=== PATIENT | female | born 1945 | race Caucasian/White ===

== ENCOUNTER → 2021-08-25 09:01 | Outpatient (BNVA) | payer OTHER, SELFPAY | PROVIDERS: PCP Internal Medicine; Visit Provider Nurse Practitioner Family ==

== ENCOUNTER → 2021-11-24 08:52 | Outpatient (BNVA) | payer OTHER, SELFPAY | PROVIDERS: PCP Internal Medicine; Visit Provider Nurse Practitioner Family | DX: G20 Parkinson's disease (principal) ==

== ENCOUNTER → 2022-09-14 10:44 | Outpatient (BNVA) | payer OTHER, SELFPAY | PROVIDERS: Visit Provider Nurse Practitioner Family | DX: Z13.89 Encounter for screening for other disorder (principal) ==

== ENCOUNTER → 2022-12-20 11:18 | Outpatient (BNVA) | payer OTHER, SELFPAY | PROVIDERS: Visit Provider Nurse Practitioner Family ==

== ENCOUNTER 2023-04-10 11:21 | Outpatient (AMB) | payer OTHER, SELFPAY ==
--- NOTE | 2023-04-10 11:22 | A.OFFVIS_ITS ---
Intake Vital Signs 04/10/23 11:23 Height 5 ft Weight 147 lb 4 oz BMI 28.8 BP 110/62 Blood Pressure Location Rt brachial Position Sitting Pulse 82 Pulse Source Pulse Oximeter Pulse Oximetry (%) 95 Oxygen Delivery Method Room Air Intake Visit Reasons: 3m follow up Parkinson-Confirmed Intake Note: Patient presents for 3 month follow up. Patient states I fall a lot I loose my balance. Allergies Sulfa (Sulfonamide Antibiotics) Allergy (Mild, Verified 04/10/23 11:34) Swelling Medication List - Last Reconciled 04/10/23 by JOVANNA Camacho alendronate 70 mg PO QWEEK calcium citrate 200 mg PO DAILY carbidopa-levodopa 25-100 mg 1.5 tabs PO QID 30 days cholecalciferol (vitamin D3) 10 mcg PO DAILY diclofenac sodium 1% 2 grams topical QID gabapentin 100 mg PO TID 30 days pramipexole 0.5 mg orally QID; 30 days rasagiline 1 mg PO DAILY HPI HPI Comments History of Present Illness Details 77-yr-old female presents for f/u visit, accompanied by her friend. Pt reports she has had increased falls- was having a fall every 2 weeks (has had about 4-5 recent falls). She states that the falls occur d/t her upper body/torso just leans forward but her feet do not move and she just falls forward. She has increased her CD-LD 25-100mg form 1.5 tabs qid to 2 tabs qid- but did not find this helpful. She is using her walker, which helps some. She last did PT in the spring. She notes that after she started falling, she has developed RLE swelling, tenderness to touch, redness, warmth- had RLE XR through PCP- states was normal. Pt's current PD medication regimen:? Carbidopa-levodopa 2 tabs qid.? Pramipexole 0.5 mg 1 q.i.d.? Rasagiline 1 mg daily. ADL's:? Slow. Has help for showers. Swallowing: Feels like solid foods become stuck, and needs to take more bites and fluids before goes done. Does not actually cough. Does not recall if this changed following her thyroid surgery. Drooling:? Mild not bothersome. Orthostatic lightheadedness:? Denies issues. Constipation:? Denies constipation. Stiffness:? No Tremor:?Tremor is stable Falls:? As above Hallucinations:? None, but feel like someone is walking by. Memory:? Stable.? Sleep:? If more anxious has more difficulty sleeping. [facility] Medical History Bilateral cataracts HTN (hypertension) Low back pain potentially associated with radiculopathy Osteoarthritis Rib fracture Urinary incontinence Vitamin D deficiency Surgical History H/O shoulder surgery Social History Alcohol intake: never Patient Tobacco Use Status: Never used Tobacco Review of Systems Const All systems reviewed & are unremarkable except as noted in HPI and below Physical Exam Vital Signs: Last Vital Signs Pulse 82 04/10/23 11:23 BP 110/62 04/10/23 11:23 Pulse Ox 95 04/10/23 11:23 Oxygen Delivery Method Room Air 04/10/23 11:23 BMI result Body Mass Index 28.8 Const General: cooperative and no acute distress Resp Effort & Inspection: normal respiratory effort and able to speak in complete sentences Cardio Peripheral pulses: dorsalis pedis present on the right Skin Other: left anterior knee abrasion Neuro Other: Expression: Mild decreased expression and blink Voice: ? Soft voice Tremor:? Mild LLE tremor Dyskinesia: Mild LLE dyskineisa- alternates w/ tremor Tone:? Right upper extremity rigidity FFM:? Mild bradykinesia Foot taps:? Mild bradykinesia Gait:? Stands slowly, slight stoop, no arm swing, short steps with low floor clearance. Psych: Pleasant affect. Cranial nerves: Yes CN's II-XII intact bilaterally General: patient oriented x3 Cognition (Neuro): normal cognition Motor exam (neuro): 5/5 motor strength present throughout Extrem Right lower extremity: edema Details: non-pitting and lower leg Details: erythema Location: of the mid lower leg, tenderness (mid anterior brian) and warmth (mild) Location: of the mid lower leg Assessment & Plan Assessment & Plan (1) Parkinson's disease: Code(s): G20 - Parkinson's disease (2) Pain of right lower extremity: Code(s): M79.604 - Pain in right leg (3) Right leg swelling: Code(s): M79.89 - Other specified soft tissue disorders (4) Falls: Code(s): W19.XXXA - Unspecified fall, initial encounter (5) Gait difficulty: Code(s): R26.9 - Unspecified abnormalities of gait and mobility (6) Dysphagia: Code(s): R13.10 - Dysphagia, unspecified Plan For RLE swelling, pain, mild redness, mild warmth: Check d-dimer, CBC, CMP today- lab slip given Check RLE venous US. ? Continue carbidopa levodopa to 2 tabs QID- in hopes this helps gait. Continue pramipexole 0.5 mg from 1 tab t.i.d. to 1 tab QID. Continue rasagiline 1 mg q.d. Use walker ta all times. Will refer pt for home PT and DESIGN CENTER CONSULTANT as pt is homebound and requires walker and 1 assist to levae home safely. PT for home safety, gait, posture, strength, endurance eval & tx DESIGN CENTER CONSULTANT for swallow, safe swallwo strategy eval & tx ? F/u in 4 months or sooner prn Orders: Orders US venous duplex LE RT Today M79.604 - Pain in right leg, M79.89 - Other specified soft tissue disorders D Dimer High Sensitivity Today M79.604 - Pain in right leg, M79.89 - Other specified soft tissue disorders Complete Blood Count Auto Diff Today M79.604 - Pain in right leg, M79.89 - Other specified soft tissue disorders Comprehensive Met. Panel Today M79.604 - Pain in right leg, M79.89 - Other specified soft tissue disorders [facility]errals [facility] Referral G20 - Parkinson's disease, R13.10 - Dysphagia, unspecified, R26.9 - Unspecified abnormalities of gait and mobility, W19.XXXA - Unspecified fall, initial encounter Medications: Changed From rasagiline 1 mg PO DAILY To rasagiline 1 mg PO DAILY 30 tabs 6RF 30 days From carbidopa-levodopa 25-100 mg 1.5 tabs PO QID 30 days 180 tabs 6RF To carbidopa-levodopa 25-100 mg 2 tabs PO QID 240 tabs 6RF 30 days Refilled pramipexole 0.5 mg orally QID; 30 tabs 6RF 30 days Coding Level of Care Code Est Pt Level 4 (76482) Diagnoses Parkinson's disease G20 Pain of right lower extremity M79.604 Right leg swelling M79.89 Falls W19.XXXA Gait difficulty R26.9 Dysphagia R13.10
[2023-04-10 11:23] VITALS: BP 110/62; PULSE 82; O2SAT 95; BMI 28.8
== END 2023-04-10 12:21 | disposition home or self-care (01) ==
PROVIDERS: Visit Provider Nurse Practitioner Family
DX: G20.B1 Parkinson's disease with dyskinesia, without mention of fluctuations (principal); R29.6 Repeated falls; M79.604 Pain in right leg; R13.10 Dysphagia, unspecified; M79.89 Other specified soft tissue disorders
CPT/HCPCS: 99214

== ENCOUNTER → 2023-04-10 11:21 | Outpatient (BNVA) | payer OTHER, SELFPAY | PROVIDERS: Visit Provider Nurse Practitioner Family | DX: G20.C Parkinsonism, unspecified (principal); M79.604 Pain in right leg; M79.89 Other specified soft tissue disorders; R26.9 Unspecified abnormalities of gait and mobility; R13.10 Dysphagia, unspecified; Z79.899 Other long term (current) drug therapy; Z91.81 History of falling | CPT/HCPCS: 99212 ==

== ENCOUNTER 2023-05-28 11:57 | Outpatient (AMB) | payer OTHER, SELFPAY ==
--- NOTE | 2023-05-28 12:05 | A.OFFVIS_ITS ---
Intake Vital Signs 05/28/23 12:06 Height 5 ft Weight 147 lb 11.355 oz BMI 28.8 BP 131/65 Blood Pressure Location Lt brachial Position Sitting Pulse 79 Pulse Source Pulse Oximeter Intake Visit Reasons: Dysphagia Intake Note: Pt presents to the office today for Dysphagia. Pt states she has been having difficulty swallowing. It Systems Engineer Required: Yes It Systems Engineer Language: [place] It Systems Engineer Name: [id number](Rosy) Allergies Sulfa (Sulfonamide Antibiotics) Allergy (Mild, Verified 05/28/23 12:07) Swelling PFSH Medical History Vitamin D deficiency Urinary incontinence Rib fracture Osteoarthritis HTN (hypertension) Bilateral cataracts Low back pain potentially associated with radiculopathy Surgical History H/O shoulder surgery Social History Alcohol intake: never Patient Tobacco Use Status: Never used Tobacco Coding
[2023-05-28 12:06] VITALS: BP 131/65; PULSE 79; BMI 28.8
--- NOTE | 2023-05-28 12:10 | A.OFFVIS_ITS ---
Intake Vital Signs 05/28/23 12:06 05/28/23 12:16 Height 5 ft Weight 147 lb 11.355 oz BMI 28.8 28.8 BP 131/65 Blood Pressure Location Lt brachial Position Sitting Pulse 79 Pulse Source Pulse Oximeter Intake Visit Reasons: Dysphagia Allergies Sulfa (Sulfonamide Antibiotics) Allergy (Mild, Verified 05/28/23 12:07) Swelling Medication List - Last Reconciled 05/28/23 by Rika Sutton PA-C alendronate 70 mg PO QWEEK calcium citrate 200 mg PO DAILY 30 days carbidopa-levodopa 25-100 mg 2 tabs PO QID 30 days cholecalciferol (vitamin D3) 10 mcg PO DAILY 30 days diclofenac sodium 1% 2 grams topical QID gabapentin 100 mg PO TID 30 days pramipexole 0.5 mg orally QID; 30 days rasagiline 1 mg PO DAILY 30 days HPI HPI Comments History of Present Illness Details A 77 y/o female here with family member - 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 elev alkphos Family member assist her, speaks for her Her nausea, vomiting, hematemesis, hematochezia fever or chills. No weight loss PFSH Medical History Vitamin D deficiency Urinary incontinence Rib fracture Osteoarthritis HTN (hypertension) Bilateral cataracts Low back pain potentially associated with radiculopathy Surgical History H/O shoulder surgery (Updated 05/28/23 @ 12:15 by Rika Sutton PA-C) Household Members Other:: lives alone Alcohol intake: never Patient Tobacco Use Status: Never used Tobacco Review of Systems Const All systems reviewed & are unremarkable except as noted in HPI and below ENT Reports dysphagia Card Denies chest pain at rest and Denies dyspnea Resp Denies dyspnea GI Denies abdominal pain, Reports dysphagia, Denies heartburn, Denies nausea and Denies vomiting Physical Exam Vital Signs: Last Vital Signs Pulse 79 05/28/23 12:06 BP 131/65 05/28/23 12:06 BMI result Body Mass Index 28.8 Const General: cooperative, healthy appearing, comfortable and no acute distress Orientation/consciousness: patient oriented x3 Limitations: language barrier Resp Effort & Inspection: normal respiratory effort and able to speak in complete sentences Auscultation: clear to auscultation bilaterally, no rales, no rhonchi and no wheezes Cardio Rate: regular rate Rhythm: regular rhythm Heart sounds: S1 normal heart sound present and S2 normal heart sound present Skin General skin exam: no rashes or lesions noted Neuro General: patient oriented x3 Extrem General: Yes full ROM Psych Appearance: well kempt Attitude: cooperative Results Reviewed Results Reviewed: 04/10/23 Assessment & Plan Assessment & Plan (1) Dysphagia: Comment: Somewhat difficult to assess- famotidine EGD- booking out- Code(s): R13.10 - Dysphagia, unspecified Plan EGD- poss dil- for dysphagia Upper GI series Reflux for couple Avoid culprits Trial famotidine Orders: Orders FL upper GI series 05/28/23 R13.10 - Dysphagia, unspecified EDG - GI Use Only 05/28/23 R13.10 - Dysphagia, unspecified Medications: New famotidine 20 mg PO DAILY 30 tabs 3RF Patient Instructions: eat slowly Chew well Famotidine 20 Upper GI series EGD- discussed procedure, rare risk need for escort Will encouraged to call with questions or concerns Coding Level of Care Code New Pt Level 4 (10235) Diagnoses Dysphagia R13.10 Time Spent (min) 35 Comment [id number]- cryptographic technician - disconnected- family member assisted
[2023-05-28 12:16] VITALS: BMI 28.8
== END 2023-05-28 14:04 | disposition home or self-care (01) ==
PROVIDERS: Visit Provider Physician Assistant
DX: R13.10 Dysphagia, unspecified (principal)
CPT/HCPCS: 99204

== ENCOUNTER → 2023-05-28 11:57 | Outpatient (BNVA) | payer OTHER, SELFPAY | PROVIDERS: Visit Provider Physician Assistant | DX: R13.10 Dysphagia, unspecified (principal) | CPT/HCPCS: 99202 ==

== ENCOUNTER 2023-09-27 09:29 | Day surgery (SDC) | payer OTHER, SELFPAY ==
--- NOTE | 2023-09-26 14:34 | P.CONAN_ITS ---
Documented by User: Kate Shukla NP 09/26/23 14:35 HPI - Anesthesia Eval Consult details Narrative: 77yo F for Upper Endoscopy [facility] Active Problems Active Problems: All Active Problems (Updated 06/04/23 @ 10:55 by Rika Sutton PA-C) Dysphagia (Acute) Gait difficulty (Acute) Right leg swelling (Acute) Pain of right lower extremity (Acute) Restless leg (Acute) Central stenosis of spinal canal (Acute) Chest pain at rest (Acute) Leg pain (Acute) Paresthesia (Acute) Falls (Acute) Left shoulder pain (Acute) Parkinson's disease (Acute) Past Medical History Medical History (Updated 09/27/23 @ 10:51 by Alina Odom) Broken arm Vitamin D deficiency Urinary incontinence Rib fracture Osteoarthritis HTN (hypertension) Bilateral cataracts Low back pain potentially associated with radiculopathy Parkinson's disease Surgical History Surgical History H/O shoulder surgery Social History Social History (Updated 05/28/23 @ 12:15 by Rika Sutton PA-C) Household Members Other:: lives alone Alcohol intake: never Patient Tobacco Use Status: Never used Tobacco Use of substances other than those prescribed or required for medical reasons: No Are you DNR?: No Advance Directives: No Advance Directives Information Provided: Yes Meds Allergies Allergy/AdvReac Type Severity Reaction Status Date / Time Sulfa (Sulfonamide Allergy Mild Swelling Verified 09/27/23 10:50 Antibiotics) Home Medications Medication Instructions Recorded Confirmed Last Taken Type alendronate 70 mg tablet 70 mg PO QWEEK 09/14/22 09/27/23 Unknown History diclofenac sodium 1 % topical gel 2 g topical QID 09/14/22 09/27/23 Unknown History Assessment and Plan Assessment Anesthesia Assessment: Chart Reviewed Documented by User: Zohra Martines MD 09/27/23 12:07 [facility] Past Medical History Medical History (Updated 03/21/24 @ 10:51 by Alina Odom) Broken arm Vitamin D deficiency Urinary incontinence Rib fracture Osteoarthritis HTN (hypertension) Bilateral cataracts Low back pain potentially associated with radiculopathy Parkinson's disease Surgical History Surgical History H/O shoulder surgery History of Problems with Anesthesia: No Social History Social History (Updated 05/28/23 @ 12:15 by Rika Sutton PA-C) Household Members Other:: lives alone Alcohol intake: never Patient Tobacco Use Status: Never used Tobacco Use of substances other than those prescribed or required for medical reasons: No Are you DNR?: No Advance Directives: No Advance Directives Information Provided: Yes Meds Allergies Allergy/AdvReac Type Severity Reaction Status Date / Time Sulfa (Sulfonamide Allergy Mild Swelling Verified 09/27/23 10:50 Antibiotics) Home Medications Medication Instructions Recorded Confirmed Last Taken Type alendronate 70 mg tablet 70 mg PO QWEEK 09/14/22 09/27/23 Unknown History diclofenac sodium 1 % topical gel 2 g topical QID 09/14/22 09/27/23 Unknown History Exam Airway Mallampati Class: II TM Dist: >3cm Neck ROM: Full Denture: Upper Loose/Missing/Broken Teeth: Yes, Upper and Lower Heart: RRR Lungs: CTA Assessment and Plan Assessment Anesthesia Assessment: Anesthesia Plan Discussed Final Anesthetic Review History of Problems with Anesthesia: No NPO: Yes ASA Class: II Final Preanesthetic Review: Meds/Allgs Chart Reviewed, Consent Obtained/Reviewed and Anes Risks/Benef Reviewed Patient Risk: Low Procedure Risk: Intermediate Anesthetic Plan Anesthetic Plan: MAC: Disposition: Standard PACU
--- NOTE | 2023-09-27 10:43 | PC.NURSE ---
Patient in preop with AUTOMATIC PAINT SPRAYER OPERATOR and Medical in person Somali Entomology Professor. Patient states I want to let you know the last time I went to the doctors and they took blood, it would not stop bleeding because of the blood thinner . No blood thinner medication listed in computer nor external med list. No mention of blood thinner in last PCP note. Patient questioned at length regarding this by this nurse. Patient expressed that she doesn't know the medication name or why she is on it. Denies history of DVT, PE, or cardiac arrhythmias. Med reconciliation complete with patient and AUTOMATIC PAINT SPRAYER OPERATOR. Patient states I do not take any other meds than whats on that list . Dr. Davey made aware. After much discussion, it was concluded that patient does not take a blood thinner currently however, team aware that patient bleeds easily. Also to note, patient and AUTOMATIC PAINT SPRAYER OPERATOR stated that patients left upper arm is currently broken. No IV or BP to left upper arm, very painful. Bed marked with sign and team made aware.
[2023-09-27 10:52] VITALS: BP 116/52; PULSE 77; RESP 16; TEMP 36.6; O2SAT 95; BMI 28.4
--- NOTE | 2023-09-27 11:35 | MHC.SHP ---
Pre-Procedural Eval Section A - 24 Hr Update-Section A only Date of Service: 09/27/23 Section B - Complete if H&P > 30 days Chief Complaint: Dysphagia, unspecified Details of Present Illness: Reports ongoing difficulty swallowing hard solid foods, for the past few months. Has to lan it down with liquids. No unintentional weight loss reported by the patient. Present Medications: see Short Stay Collaborative assessment Medical History: No relevant PMH History of Previous Operations: Relevant previous surgery/procedure and date(s) Allergies: Allergies Allergy/AdvReac Type Severity Reaction Status Date / Time Sulfa (Sulfonamide Allergy Mild Swelling Verified 09/27/23 10:50 Antibiotics) Review of Systems Review of Systems Comment: Ten point ROS negative except as above Exam Exam Comment: Gen appear: No acute distress HEENT: no icterus Chest: No overt resp distress Abd: soft, nontender, nondistended Psych: Stable affect, answering questions appropriately Neuro: A/Ox3 noted to move all extremities spontaneously Ext: no peripheral edema Plan Diagnosis/Plan: Unchanged I have reviewed the history and physical and performed a pertinent physical examination on my patient. No changes have occurred unless specified. Time Spent With Patient Time: Total time managing care of this patient today ____ minutes.
--- NOTE | 2023-09-27 11:52 | P.OP_ITS ---
Operative Note Operative Note Date of Service: 09/27/23 Narrative: Procedure: Esophagogastroduodenoscopy Endoscopist: Xiomy Davey MD Indication: Dysphagia Anesthesia Provider: Dr Zohra Martines Anesthesia Type: MAC ?? EGD Procedure:?? The procedure, indications, preparation and potential complications were reviewed with the patient, who indicated understanding and gave written informed consent to proceed. A german electronics assembler was utilised to assist with the encounter. A physical exam was performed. The endoscope was introduced through the mouth, and advanced to the second part of duodenum. The mucosa was carefully examined on slow withdrawal of the endoscope. The patient tolerated the procedure well. There were no immediate complications.? ? EGD Findings:? * Esophagus:? Whitish exudate that was spontaneously sloughing was noted in mid and lower esophagus. The Z line was at 32 cm and the GEJ was somewhat spastic. Middle and lower esophagus forceps biopsies were obtained to rule out eosinophilic esophagitis. * Stomach:? Erosions were noted in the antrum. Cold forceps biopsies were taken from the edge to rule out H pylori as well as malignancy. A few polyps were noted in the fundus. Cold forceps biopsies were taken for histology. * Duodenum:? Normal mucosa was noted in the whole of the examined duodenum. Additional intervention: A soft tip Savary wire was introduced through the biopsy channel of the gastroscope and advanced to the antrum. The gastroscope was then backed out. Savary Edda bougie was advanced over the guidewire and esophagus was incrementally dilated from 17-19 mm. On relook, there was small tear at the level of cricopharyngeus at 14 cm. ? EGD Impressions:? 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 Recommendations:?? * Follow biopsy results. Our office will call or send a letter with results within 7-10 days. * Dysphagia likely from UES stenosis though can not rule out dysmotility. UGIS pending * Avoid NSAIDs. Above has been reviewed with the patient with the help of a [place] electronics assembler.
[2023-09-27 12:45] VITALS: BP 104/52; PULSE 69; RESP 18; TEMP 36.2; O2SAT 99
[2023-09-27 13:00] VITALS: BP 102/59; PULSE 72; RESP 18; TEMP 36.3; O2SAT 99
== END 2023-09-27 13:12 | disposition home or self-care (01) ==
PROVIDERS: Visit Provider Internal Medicine
PROC: 0DJ08ZZ Inspection of Upper Intestinal Tract, Via Natural or Artificial Opening Endoscopic (ICD-10-PCS; CPT 43235; principal; 2023-09-27 11:30)
DX: K22.2 Esophageal obstruction (principal); K29.50 Unspecified chronic gastritis without bleeding; K31.7 Polyp of stomach and duodenum; I10 Essential (primary) hypertension; G20.A1 Parkinson's disease without dyskinesia, without mention of fluctuations; E55.9 Vitamin D deficiency, unspecified; M54.50 Low back pain, unspecified; M19.90 Unspecified osteoarthritis, unspecified site; Z79.899 Other long term (current) drug therapy; Z88.2 Allergy status to sulfonamides
CPT/HCPCS: 43248; 43239; 88305; 88313; 88342; C1769; J2704

== ENCOUNTER → 2023-09-27 09:29 | Outpatient (BNV) | payer OTHER, SELFPAY | PROVIDERS: Visit Provider Internal Medicine | DX: R13.10 Dysphagia, unspecified (principal); K29.70 Gastritis, unspecified, without bleeding; K22.2 Esophageal obstruction; K31.7 Polyp of stomach and duodenum | CPT/HCPCS: 43248 ==

== ENCOUNTER 2023-10-11 11:23 | Outpatient (AMB) | payer OTHER, SELFPAY ==
--- NOTE | 2023-10-11 11:26 | MHC.OFFVIS ---
Intake Vital Signs 10/11/23 11:27 Height 5 ft Weight 141 lb 1.533 oz BMI 27.6 BP 121/53 L Blood Pressure Location Lt brachial Position Sitting Pulse 77 Intake Visit Reasons: S/p egd Intake Note: Fatou presents in the office as a follow up EGD. CC: She states that she is here for the results. When she swallows she has a little bit of pains. Construction Electrician Required: Yes Construction Electrician Name: [id number] Bria Allergies Sulfa (Sulfonamide Antibiotics) Allergy (Mild, Verified 10/11/23 11:27) Swelling Medication List - Last Reconciled 10/11/23 by Rika Sutton PA-C alendronate 70 mg PO QWEEK calcium citrate 200 mg PO DAILY 30 days carbidopa-levodopa 25-100 mg 2 tabs PO QID 30 days cholecalciferol (vitamin D3) (Vitamin D3) 125 mcg PO DAILY diclofenac sodium 1% 2 grams topical QID famotidine 20 mg PO DAILY gabapentin 100 mg PO TID 30 days latanoprost 0.005% drps ophthalmic (eye) methimazole 5 mg PO DAILY mirabegron ER (Myrbetriq) 25 mg PO DAILY nzmdsupu-qfb-onsj fum-folic ac 18 mg iron- 400 mcg (One-A-Day Women's Complete) tabs PO pramipexole 0.5 mg orally QID; 30 days rasagiline 1 mg PO DAILY 30 days torsemide 5 mg PO DAILY HPI HPI Comments History of Present Illness Details A 77 y/o f/u EGD-reviewed procedure path and recomendations Here with family member- She feels normal, good ' she does get heart burn- famotodine 20 QD No N/V/D/ abdominal pain- dysphagia fever or chills Construction Electrician device- [facility] Medical History (Updated 10/11/23 @ 11:47 by Rika Sutton PA-C) Broken arm Vitamin D deficiency Urinary incontinence Rib fracture Osteoarthritis HTN (hypertension) Bilateral cataracts Low back pain potentially associated with radiculopathy Parkinson's disease Surgical History (Updated 10/11/23 @ 11:32 by VITA Carr) History of esophagogastroduodenoscopy (EGD) H/O shoulder surgery Social History Household Members Other:: lives alone Alcohol intake: never Patient Tobacco Use Status: Never used Tobacco Review of Systems GI Denies abdominal pain, Reports heartburn, Denies nausea and Denies vomiting Physical Exam Vital Signs: Last Vital Signs Pulse 77 10/11/23 11:27 BP 121/53 L 10/11/23 11:27 BMI result Body Mass Index 27.6 Const General: cooperative, healthy appearing, comfortable and no acute distress Orientation/consciousness: patient oriented x3 Limitations: language barrier and ambulation with walker Resp Effort & Inspection: normal respiratory effort and able to speak in complete sentences Neuro General: patient oriented x3 Psych Appearance: grossly normal and well kempt Affect: normal affect Attitude: cooperative Thought process: Normal thought process present Thought content: Normal thought content present Results Reviewed Results Reviewed: GD Impressions:? 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 Recommendations:?? Follow biopsy results. Our office will call or send a letter with results within 7-10 days. Dysphagia likely from UES stenosis though can not rule out dysmotility. UGIS pending Avoid NSAIDs. Above has been reviewed with the patient with the help of a Nauruan car record clerk. me: Fatou Hardin Age/Sex: 77/F Attending: Xiomy Davey MD : 1945 Submitted by: Xiomy Davey MD Copies to: Physician,Unknown MR #: [id number] Status: [facility] Collected: 09/27/23 Location: [facility] Received: 09/27/23 Diagnosis A. Gastric antrum, edge of erosion, biopsy: Gastric antral mucosa with moderate reactive/regenerative changes and minimal chronic inactive gastritis; negative for H pylori, intestinal metaplasia and dysplasia. B. Gastric polyps, biopsy: Fundic gland polyps with focal minimal chronic inactive inflammation; negative for H pylori, intestinal metaplasia and dysplasia. C. Esophagus, lower, biopsy: Squamous mucosa with mild hyperplasia and spongiosis and focal mild intraepithelial lymphocytes (see comment). D. Esophagus, middle, biopsy: Squamous mucosa with minimal hyperplasia and spongiosis and focal minimal intraepithelial lymphocytes; no subepithelial tissue present for evaluation (see comment). Comment: (C and D): Appearances are a non-specific reaction pattern, but lymphocytic esophagitis is not excluded. Clinical correlation is necessary. Clinical History Pre-Op Dx: Dysphagia Post-Op Dx: Gastritis, gastric polyps, upper esophageal stricture Microscopic Description Microscopic sections reviewed. Immunostains for H. pylori on A and B are negative. AB/PAS on A and B are negative for intestinal metaplasia. Controls stain appropriately. Material Received A. Bx antrum edge of erosion B. Bx gastric polyps C. Bx lower esophagus D. Bx middle esophagus Gross Description Received in 4 parts. Part A: Received in formalin labeled ?bx antrum edge of erosion? are 4 smith-pink irregular and rectangular tissue fragments ranging from 0.15-0.35 cm, submitted in toto in a cassette labeled A. Part B: Received in formalin labeled ?bx gastric polyps? are 2 smith-pink irregular tissue fragments Patient: Fatou Hardin Age/[facility]: 77[id number] MR#: [id number] Page 1 of 2 Assessment & Plan Assessment & Plan (1) Esophagitis: Code(s): K20.90 - Esophagitis, unspecified without bleeding Plan: stop famotodine- begin pantoprazole 40 mg Plan pantoprazole 40 mg - see back 8 weeks for progress- if sx improved - 20 mg Medications: New pantoprazole 40 mg (2 x 20 mg) PO ONCE 30 days PRN 60 tabs 6RF esophagitis Patient Instructions: pantoprazole 40 mg - see back 8 weeks for progress Avoid NSAIDS reflux precautions Call with concerns Coding Level of Care Code Est Pt Level 3 (88025) Diagnoses Esophagitis K20.90 Time Spent (min) 30 Comment [id number]
[2023-10-11 11:27] VITALS: BP 121/53; PULSE 77; BMI 27.6
== END 2023-10-11 12:17 | disposition home or self-care (01) ==
PROVIDERS: Visit Provider Physician Assistant
DX: K20.90 Esophagitis, unspecified without bleeding (principal)
CPT/HCPCS: 99213

== ENCOUNTER → 2023-10-11 11:23 | Outpatient (BNVA) | payer OTHER, SELFPAY | PROVIDERS: Visit Provider Physician Assistant | DX: K20.90 Esophagitis, unspecified without bleeding (principal) | CPT/HCPCS: 99212 ==

== ENCOUNTER 2023-10-15 10:23 | Outpatient (AMB) | payer OTHER, SELFPAY ==
--- NOTE | 2023-10-15 10:27 | MHC.OFFVIS ---
Intake Vital Signs 10/15/23 10:28 Height 5 ft Weight 145 lb BMI 28.3 BP 126/70 Blood Pressure Location Rt brachial Position Sitting Pulse 80 Pulse Source Pulse Oximeter Pulse Oximetry (%) 98 Oxygen Delivery Method Room Air Intake Visit Reasons: 3 mnts f/u appt - Conf Intake Note: patient presents for 3 month follow up. Patient doing good since last seeing provider Allergies Sulfa (Sulfonamide Antibiotics) Allergy (Mild, Verified 10/15/23 10:30) Swelling Medication List - Last Reconciled 10/15/23 by JOVANNA Camacho alendronate 70 mg PO QWEEK calcium citrate 200 mg PO DAILY 30 days carbidopa-levodopa 25-100 mg 2 tabs PO QID 30 days cholecalciferol (vitamin D3) (Vitamin D3) 125 mcg PO DAILY diclofenac sodium 1% 2 grams topical QID famotidine 20 mg PO DAILY gabapentin 100 mg PO TID 30 days latanoprost 0.005% drps ophthalmic (eye) methimazole 5 mg PO DAILY mirabegron ER (Myrbetriq) 25 mg PO DAILY ujolqexz-eua-ogxh fum-folic ac 18 mg iron- 400 mcg (One-A-Day Women's Complete) tabs PO omeprazole 20 mg PO BID pantoprazole 40 mg (2 x 20 mg) PO ONCE PRN 30 days pramipexole 0.5 mg orally QID; 30 days rasagiline 1 mg PO DAILY 30 days torsemide 5 mg PO DAILY HPI HPI Comments History of Present Illness Details 77-yr-old female presents for f/u visit, accompanied by her BANKRUPTCY LAW SPECIALIST. Pt reports the following interval medical history changes: Pt sustained a fall on 08/04/23. Pt states she was going through a door and lost her balance. During the fall she landed on her left arm and knees. She sustained an acute L1 vertebral body compression fracture and a left humeral diaphysis fracture. Pt was evaluated at [facility] ER, and was discharged to rehab x's 1.5 months. She has since returned home w/ PT. She had [facility] neurosurgery f/u in Aug- f/u CT lumbar spine showed interval healing of L1 compression fracture. She was advised to use her back brace prn low back pain. She was also advised to f/u w/ [facility] for the left humerus fx. Was told to f/u prn. Continues to have a constant sharp, non-radiating low back pain. The back brace does not help, has tried buying a new brace herself, but this does not make a difference. She has had f/u [facility]- left humerus fx did not reuqire intervention,a nd now feels better. Reports LUE actually feels better than prior to the fall- less pain and more ROM. She is sill doing PT. 08/04/23 CT lumbar w/o: IMPRESSION: Acute fracture of the L1 vertebral body superimposed upon chronic vertebral compression fracture with approximately 50% loss of vertebral body height 6 mm anterolisthesis of L5 over S1 and loss of disc space height which is greatest at the L5-S1 level. 08/30/23, Lumbar CT w/o: IMPRESSION: 1. Ongoing healing of L1 vertebral body compression fracture without significant interval change in moderate height loss. 2. 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 3. Additional stable chronic findings as detailed above. Pt's current PD medication regimen:? Carbidopa-levodopa 2 tabs qid.? Pramipexole 0.5 mg 1 q.i.d.? Rasagiline 1 mg daily. ADL's:? Slow. Has help for showers. Swallowing: Has a bit more difficulty. States she had an endoscopy through [facility]- dx esophagitis.. Drooling:? Mild not bothersome. Orthostatic lightheadedness:? Denies issues. Constipation:? Denies constipation. Stiffness:? No Tremor:?Not much tremor Dyskinesia:She is noticing increased dyskinesia, since returning from rehab. During the rehab stay- she did not notice this, but did not always get her doses timely.. Falls:? As above Hallucinations:? None. Memory:? Stable.? Sleep:? Sleeping ok, but some nights frequent arousals if anxious.. [facility] Medical History (Updated 10/15/23 @ 20:01 by JOVANNA Camacho) Broken arm Vitamin D deficiency Urinary incontinence Rib fracture Osteoarthritis HTN (hypertension) Bilateral cataracts Low back pain potentially associated with radiculopathy Parkinson's disease Surgical History History of esophagogastroduodenoscopy (EGD) H/O shoulder surgery Social History Household Members Other:: lives alone Alcohol intake: never Patient Tobacco Use Status: Never used Tobacco Review of Systems Const All systems reviewed & are unremarkable except as noted in HPI and below Physical Exam Vital Signs: Last Vital Signs Pulse 80 10/15/23 10:28 BP 126/70 10/15/23 10:28 Pulse Ox 98 10/15/23 10:28 Oxygen Delivery Method Room Air 10/15/23 10:28 BMI result Body Mass Index 28.3 Const General: cooperative and no acute distress Resp Effort & Inspection: normal respiratory effort and able to speak in complete sentences Neuro Other: General: A&O, mild STM lapses. Expression: Mild decreased expression and blink Voice: ? Soft voice Tremor:? No visible treor today. Dyskinesia: Generalized dyskinesia. Tone:? Right upper extremity rigidity FFM:? Mild bradykinesia Foot taps:? Mild bradykinesia Gait:? Stands slowly, slight stoop, no arm swing, short steps with low floor clearance, steady w/ cane. Psych: Pleasant affect. Lumbar region back pain- non-radiating, exacerbated by standing up/movement. Deep tendon reflexes (DTR's): Right patellar reflex intensity grade: 2+ and Left patellar reflex intensity grade: 2+ Assessment & Plan Assessment & Plan (1) Parkinson's disease with dyskinesia: Code(s): G20.B1 - Parkinson's disease with dyskinesia, without mention of fluctuations (2) Lumbar compression fracture: Code(s): S32.000A - Wedge compression fracture of unspecified lumbar vertebra, initial encounter for closed fracture (3) Low back pain: Code(s): M54.50 - Low back pain, unspecified Plan For Parkinson's: Continue carbidopa levodopa to 2 tabs QID.. Reduce pramipexole from 0.5 mg to 0.25mg QID- in hopes this reduces bothersome dyskinesias. Continue rasagiline 1 mg q.d. Continue PT. Use cane/walker. For low back pain in setting of recent L1 compression fracture: Will request consult w/ Dr Go- ? if pt would be a candidate for kyphoplasty tx. Case discussed w/ Dr Lesa Sheets. ? F/u in 6 months or sooner prn Orders: Referrals Vascular Surgery Referral G20.B1 - Parkinson's disease with dyskinesia, without mention of fluctuations, M54.50 - Low back pain, unspecified, S32.000A - Wedge compression fracture of unspecified lumbar vertebra, initial encounter for closed fracture Medications: New pramipexole 0.25 mg orally QID; 28 days 112 tabs 6RF Discontinued pramipexole Discontinued Reason: Doctor's Order 0.5 mg orally QID; 30 days 120 tabs 6RF Coding Level of Care Code Est Pt Level 4 (74729) Diagnoses Parkinson's disease with dyskinesia G20.B1 Lumbar compression fracture S32.000A Low back pain M54.50
[2023-10-15 10:28] VITALS: BP 126/70; PULSE 80; O2SAT 98; BMI 28.3
== END 2023-10-15 11:25 | disposition home or self-care (01) ==
PROVIDERS: Visit Provider Nurse Practitioner Family
DX: G20.B1 Parkinson's disease with dyskinesia, without mention of fluctuations (principal); S32.000A Wedge compression fracture of unspecified lumbar vertebra, initial encounter for closed fracture; M54.50 Low back pain, unspecified
CPT/HCPCS: 99214

== ENCOUNTER → 2023-10-15 10:23 | Outpatient (BNVA) | payer OTHER, SELFPAY | PROVIDERS: Visit Provider Nurse Practitioner Family | DX: M54.50 Low back pain, unspecified (principal); S32.000A Wedge compression fracture of unspecified lumbar vertebra, initial encounter for closed fracture; G20.B1 Parkinson's disease with dyskinesia, without mention of fluctuations | CPT/HCPCS: 99212 ==

== ENCOUNTER 2023-12-11 10:33 | Outpatient (AMB) | payer OTHER, SELFPAY ==
--- NOTE | 2023-12-11 10:44 | MHC.OFFVIS ---
Vital Signs 12/11/23 10:46 Height 5 ft Weight 142 lb BMI 27.7 BP 106/58 L Blood Pressure Location Lt brachial Position Sitting Pulse 74 Intake Visit Reasons: 8 week follow up Intake Note: Patient follow up Esophagitis Patient cc: Nauseas, swallowing problems. Denies any GI issues. Server Software Engineer Required: Yes Server Software Engineer Name: Carolyn Fernandez8 Accompanied by: Daughter Allergies Sulfa (Sulfonamide Antibiotics) Allergy (Mild, Verified 12/11/23 10:44) Swelling Medication List - Last Reconciled 12/11/23 by Rika Sutton PA-C alendronate 70 mg PO QWEEK calcium citrate 200 mg PO DAILY 30 days carbidopa-levodopa 25-100 mg 2 tabs PO QID 30 days cholecalciferol (vitamin D3) (Vitamin D3) 125 mcg PO DAILY diclofenac sodium 1% 2 grams topical QID famotidine 20 mg PO DAILY gabapentin 100 mg PO TID 30 days latanoprost 0.005% drps ophthalmic (eye) methimazole 5 mg PO DAILY mirabegron ER (Myrbetriq) 25 mg PO DAILY obgfbpup-sqx-qmyy fum-folic ac 18 mg iron- 400 mcg (One-A-Day Women's Complete) tabs PO omeprazole 20 mg PO BID pramipexole 0.25 mg orally QID; 28 days rasagiline 1 mg PO DAILY 30 days torsemide 5 mg PO DAILY HPI Comments Details: Server Software Engineer device - and METER CHANGES RECORDS CLERK present A 77 y/o female f/u after 8 weeks-pantoprazole 40 mg with good responses Appetite is good-but for gets to eat sometimes- lives alone- family member present- she will remind her 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- denies memory loss- she just sometimes doesn't have an appetite- she denies depression- feels tired some days She is alone- has neighbors- no family- No N/V/ D abdominal pain-fever or chills PFSH Medical History Broken arm Vitamin D deficiency Urinary incontinence Rib fracture Osteoarthritis HTN (hypertension) Bilateral cataracts Low back pain potentially associated with radiculopathy Parkinson's disease Surgical History History of esophagogastroduodenoscopy (EGD) H/O shoulder surgery Social History Household Members Other:: lives alone Alcohol intake: never Patient Tobacco Use Status: Never used Tobacco Review of Systems Const All systems reviewed & are unremarkable except as noted in HPI and below Denies chills, Reports fatigue and Denies fever(s) Card Denies chest pain and Denies dyspnea Resp Denies dyspnea GI Denies abdominal pain, Denies change in bowel habits, Denies heartburn, Denies nausea and Denies vomiting Psych Details: denies depression Endo Reports fatigue Physical Exam Vital Signs: Last Vital Signs Pulse 74 12/11/23 10:46 BP 106/58 L 12/11/23 10:46 BMI result Body Mass Index 27.7 Const General: cooperative, healthy appearing and comfortable Orientation/consciousness: patient oriented x3 Limitations: language barrier and ambulation with walker Eyes Sclerae: sclerae normal Resp Effort & Inspection: normal respiratory effort and able to speak in complete sentences Neuro General: patient oriented x3 Extrem General: Yes full ROM Psych Appearance: grossly normal and well kempt Speech and movement: Clear speech present Affect: Anxious affect present Attitude: cooperative Assessment & Plan Assessment & Plan (1) Esophagitis: Comment: asymptomatic Will decrease pantoprazole- to 20 mg ? memory decline- Code(s): K20.90 - Esophagitis, unspecified without bleeding Category: Medical Plan: pantoprazole 20 mg- sent to pharm METER CHANGES RECORDS CLERK to monitor her diet- remind her to eat- Consider-increased family services specialist Medications: New pantoprazole 20 mg PO QAM 30 tabs 6RF 30 days Patient Instructions: pantoprazole 20 mg- sent to pharm METER CHANGES RECORDS CLERK to monitor her diet- remind her to eat f/u pcp in January as scheduled-METER CHANGES RECORDS CLERK discuss increasing hours of family services specialist Call w/ progress/ concerns Coding Level of Care Code Est Pt Level 4 (79155) Diagnoses Esophagitis K20.90 Time Spent (min) 30 Comment [id number]- tablet machine operator
[2023-12-11 10:46] VITALS: BP 106/58; PULSE 74; BMI 27.7
== END 2023-12-11 11:14 | disposition home or self-care (01) ==
PROVIDERS: Visit Provider Physician Assistant
DX: K20.90 Esophagitis, unspecified without bleeding (principal)
CPT/HCPCS: 99214

== ENCOUNTER → 2023-12-11 10:33 | Outpatient (BNVA) | payer OTHER, SELFPAY | PROVIDERS: Visit Provider Physician Assistant | DX: K20.90 Esophagitis, unspecified without bleeding (principal) | CPT/HCPCS: 99212 ==

== ENCOUNTER 2024-04-14 11:31 | Outpatient (AMB) | payer OTHER, SELFPAY ==
[2024-04-14 11:33] VITALS: BP 120/74; BMI 27.7
--- NOTE | 2024-04-14 11:33 | A.OFFVIS_ITS ---
Vital Signs 04/14/24 11:33 Height 5 ft Weight 142 lb BMI 27.7 BP 120/74 Blood Pressure Location Rt brachial Position Sitting Intake Visit Reasons: Follow up Intake Note: Patient presents for follow up. when stops walking she feels like she's going to fall Behavioral Health Clinician Required: Yes Behavioral Health Clinician Services: Behavioral Health Clinician Present Behavioral Health Clinician Name: ID [id number] Abhi Allergies Sulfa (Sulfonamide Antibiotics) Allergy (Mild, Verified 04/14/24 11:42) Swelling Medication List - Last Reconciled 04/14/24 by JOVANNA Camacho alendronate 70 mg PO QWEEK calcium citrate 200 mg PO DAILY 30 days carbidopa-levodopa 25-100 mg 2 tabs PO QID 30 days cholecalciferol (vitamin D3) (Vitamin D3) 125 mcg PO DAILY diclofenac sodium 1% 2 grams topical QID famotidine 20 mg PO DAILY gabapentin 100 mg PO TID 30 days latanoprost 0.005% drkishan ophthalmic (eye) methimazole 5 mg PO DAILY mirabegron ER (Myrbetriq) 25 mg PO DAILY ugckwxou-jfi-aqtp fum-folic ac 18 mg iron- 400 mcg (One-A-Day Women's Complete) tabs PO omeprazole 20 mg PO BID pantoprazole 20 mg PO QAM 30 days pramipexole 0.25 mg orally QID; 28 days rasagiline 1 mg PO DAILY 30 days torsemide 5 mg PO DAILY HPI Comments Details: 77-yr-old female presents for f/u visit, accompanied by her SHOT TUBE MACHINE TENDER. Pt reports the following interval medical history changes: Pt reports she has been having difficulties with her BP- has been in the 200s and then in 90s. But states when she stopped famotidine her BP normalized. She did undergo a kyphoplasty after the last visit, states she continues to have back pain. Pt's current PD medication regimen:? Carbidopa-levodopa 2 tabs qid.? Pramipexole 0.25 mg 1 q.i.d.? Rasagiline 1 mg daily. Living situation: Lives home alone. Has a DISTRICT SALES REPRESENTATIVE. ADL's:? Slow. Needs more help d/t her left hand. Swallowing: States no issues, as long as she takes small bites. Drooling:? Sometimes oral dryness. Orthostatic lightheadedness:? Denies issues. Constipation:? Denies constipation. Stiffness:? Denies Tremor:?Not much tremor Paresthesias: Right hand numbness- this comes and goes- depends on her hand position. Both hands hurt to put pressure on. Dyskinesia: Stable- not bothersome. Gait: Walking better when using walker. Falls:?Almost falls, but was able to catch herself. Doing exercises on her own. Her friend states last PT was in Feb. Hallucinations:? Sometimes it may seem like something has passed by her. Memory:? May have some memory issues- no worrisome forgetful. May forget to eat. ? Sleep:? Sleeping ok. [facility] Medical History Broken arm Vitamin D deficiency Urinary incontinence Rib fracture Osteoarthritis HTN (hypertension) Bilateral cataracts Low back pain potentially associated with radiculopathy Parkinson's disease Surgical History History of esophagogastroduodenoscopy (EGD) H/O shoulder surgery Social History Household Members Other:: lives alone Alcohol intake: never Patient Tobacco Use Status: Never used Tobacco Physical Exam Vital Signs: Last Vital Signs BP 120/74 04/14/24 11:33 BMI result Body Mass Index 27.7 Const General: cooperative and no acute distress Resp Effort & Inspection: normal respiratory effort and able to speak in complete sentences Neuro Other: General: A&O, mild STM lapses. Expression: Mild decreased expression and blink Voice: ? Soft voice Tremor:? No visible tremor today. Dyskinesia: Generalized mild dyskinesia. Tone:? BUE rigidity, L > R finger posturing. Sensation: Lio hands intact. FFM:? Mild bradykinesia Foot taps:? Mild bradykinesia Gait:? Stands slowly, slight stoop, no arm swing, short steps with low floor clearance. Stride better w/ walker. Psych: Pleasant affect. Assessment & Plan Assessment & Plan (1) Parkinson's disease with dyskinesia: Code(s): G20.B1 - Parkinson's disease with dyskinesia, without mention of fluctuations Category: Medical (2) Bilateral hand pain: Code(s): M79.641 - Pain in right hand; M79.642 - Pain in left hand Category: Medical Plan For Parkinson's: Continue carbidopa levodopa to 2 tabs QID.. Continue pramipexole from 0.5 mg to 0.25mg QID Continue rasagiline 1 mg q.d. Use cane/walker. For bilateral 1st finger/hand pain and posturing: Will request orthopedic consult. ? F/u in 6 months or sooner prn Orders: Referrals Orthopedics Referral G20.B1 - Parkinson's disease with dyskinesia, without mention of fluctuations, M79.641 - Pain in right hand, M79.642 - Pain in left hand, Z98.890 - Other specified postprocedural states Medications: Changed From pramipexole 0.25 mg orally QID; 28 days 112 tabs 6RF To pramipexole 0.25 mg orally QID; 30 days 120 tabs 6RF Refilled carbidopa-levodopa 25-100 mg 2 tabs PO QID 30 days 240 tabs 6RF rasagiline 1 mg PO DAILY 30 days 30 tabs 6RF Coding Level of Care Code Est Pt Level 4 (49085) Diagnoses Parkinson's disease with dyskinesia G20.B1 Bilateral hand pain M79.641; M79.642
== END 2024-04-14 12:23 | disposition home or self-care (01) ==
PROVIDERS: Visit Provider Nurse Practitioner Family
DX: G20.B1 Parkinson's disease with dyskinesia, without mention of fluctuations (principal); M79.641 Pain in right hand; M79.642 Pain in left hand
CPT/HCPCS: 99214

== ENCOUNTER → 2024-04-14 11:31 | Outpatient (BNVA) | payer OTHER, SELFPAY | PROVIDERS: Visit Provider Nurse Practitioner Family | DX: G20.B1 Parkinson's disease with dyskinesia, without mention of fluctuations (principal); M79.642 Pain in left hand; M79.641 Pain in right hand | CPT/HCPCS: 99212 ==

== ENCOUNTER 2024-04-23 08:36 | Outpatient (AMB) | payer OTHER, SELFPAY ==
--- NOTE | 2024-04-23 08:38 | A.OFFVIS_ITS ---
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 Patient has a diagnostic report of her spine on 11/02/23. She mentions her pain has been going on for many years. Patient reports her pain is worse when getting up in the morning, walking without her walker. No hx of PT or mediation Curb Machine Operator Required: Yes Curb Machine Operator Services: Curb Machine Operator Present (Carolyn ([id number])) Allergies Sulfa (Sulfonamide Antibiotics) Allergy (Mild, Verified 04/14/24 11:42) Swelling Medication List - Last Reconciled 04/23/24 by Cherelle Bill MD alendronate 70 mg PO QWEEK calcium citrate 200 mg PO DAILY 30 days carbidopa-levodopa 25-100 mg 2 tabs PO QID 30 days cholecalciferol (vitamin D3) (Vitamin D3) 125 mcg PO DAILY diclofenac sodium 1% 2 grams topical QID famotidine 20 mg PO DAILY gabapentin 100 mg PO TID 30 days latanoprost 0.005% drps ophthalmic (eye) methimazole 5 mg PO DAILY mirabegron ER (Myrbetriq) 25 mg PO DAILY vmbhtqte-xtp-vbqd fum-folic ac 18 mg iron- 400 mcg (One-A-Day Women's Complete) tabs PO omeprazole 20 mg PO BID pantoprazole 20 mg PO QAM 30 days pramipexole 0.25 mg orally QID; 30 days rasagiline 1 mg PO DAILY 30 days torsemide 5 mg PO DAILY HPI Comments Details: History of Parkinsons. She had kyphoplasty T12 and L1 last 11/02/23, by Dr. Bhagat. She says the pain did not go away and that is worse. Last MRI probably was this year, at [facility]. No other past injections. Chronic back pain but she says pain is much worse now, after the fracture, points to midline lumbar area, then goes to the right hip/buttocks area. It does not radiate to her leg or foot. Denies feet numbness. No PT She fractured left humerus in July 2023 after a fall. While in rehab facility, in August, had a fall which led to the compression fracture. History of osteoporosis, taking alendronate. 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 FORMERLY [facility], [facility] Medical History (Updated 04/23/24 @ 09:36 by Cherelle Bill MD) History of osteoporosis Broken arm Vitamin D deficiency Urinary incontinence Rib fracture Osteoarthritis HTN (hypertension) Bilateral cataracts Low back pain potentially associated with radiculopathy Parkinson's disease Surgical History (Updated 04/14/24 @ 12:16 by JOVANNA Camacho) History of esophagogastroduodenoscopy (EGD) H/O shoulder surgery Social History Household Members Other:: lives alone Alcohol intake: never Patient Tobacco Use Status: Never used Tobacco Review of Systems Const All systems reviewed & are unremarkable except as noted in HPI and below Physical Exam Constitutional: Patient appears to be in no acute distress, well nourished and well developed. Patient was appropriately conversant and oriented. Good historian. MSK: No specific abnormalities found on inspection of the spine and all extremities. No pain with palpation over the lumbar area. No pinpoint tenderness on spinous processes. No SI joint tenderness. Mild tenderness in right GT. Lumbar ROM was full. Bilateral hip, knee and ankle ROM WNL. No ligamentous laxity or crepitance. No increased effusion. Straight-leg raising test negative. FABERE test negative. Strength is 5/5 in all muscle groups tested. No increased tone noted. Neurological: Neurologic examination of the upper and lower extremities was nonfocal with intact sensation, muscle stretch reflexes and without focal motor deficits . Anderson?s negative bilaterally. Babinski was down going bilaterally. Clonus was negative. Gait is antalgic without loss of balance. Pill rolling tremor on hands. Results Reviewed Results Reviewed: Reviewed notes from [facility]: Kyphoplasty T12 and L1 11/02/[address] Rodriguez. EMG done by Dr. 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 Reviewed notes from neurology who manages her Parkinson's. Assessment & Plan Assessment & Plan (1) Low back pain: Code(s): M54.50 - Low back pain, unspecified Category: Medical Qualifiers: Chronicity: chronic Back pain laterality: midline Sciatica presence: without sciatica Qualified Code(s): M54.50 - Low back pain, unspecified; G89.29 - Other chronic pain (2) Lumbar compression fracture: Code(s): S32.000A - Wedge compression fracture of unspecified lumbar vertebra, initial encounter for closed fracture Category: Medical Qualifiers: Encounter type: initial encounter Lumbar vertebra fracture level: L1 Qualified Code(s): S32.010A - Wedge compression fracture of first lumbar vertebra, initial encounter for closed fracture (3) History of osteoporosis: Code(s): Z87.39 - Personal history of other diseases of the musculoskeletal system and connective tissue Category: Medical Plan Patient continues to have low back pain despite kyphoplasty for compression fractures last October. She had not gone to physical therapy after the fractures. She complains of right pelvis pain but not any radicular pain to the leg. Referring her to physical therapy for back pain. Doing pelvic x-rays today to rule out any pelvic insufficiency fracture, given that she has osteoporosis. Obtaining MRIs done at [facility] for further information. Assessment and plan discussed with patient, and patient was agreeable. All questions were answered thoroughly. Follow up 4 weeks or after PT. Cherelle Bill MD, KECIA Board Certified, [place] Board of Physical Medicine and Rehabilitation (ABPMR) Board Certified, [place] Board of Electrodiagnostic Medicine (ABEM) Orders: Orders PT Evaluation and Treatment Today M54.50 - Low back pain, unspecified, S32.000A - Wedge compression fracture of unspecified lumbar vertebra, initial encounter for closed fracture XR pelvis min 3V Today M54.50 - Low back pain, unspecified, S32.000A - Wedge compression fracture of unspecified lumbar vertebra, initial encounter for closed fracture, Z87.39 - Personal history of other diseases of the musculoskeletal system and connective tissue Coding Level of Care Code New Pt Level 4 (57639) Diagnoses Chronic midline low back pain without sciatica M54.50; G89.29 Chronicity: chronic Back pain laterality: midline Sciatica presence: without sciatica Compression fracture of L1 vertebra, initial encounter S32.010A Encounter type: initial encounter Lumbar vertebra fracture level: L1 History of osteoporosis Z87.39
== END 2024-04-23 09:37 | disposition home or self-care (01) ==
PROVIDERS: PCP Nurse Practitioner; Visit Provider Physical Medicine & Rehabilitation
DX: M54.50 Low back pain, unspecified (principal); G89.29 Other chronic pain; S32.010A Wedge compression fracture of first lumbar vertebra, initial encounter for closed fracture; Z87.39 Personal history of other diseases of the musculoskeletal system and connective tissue
CPT/HCPCS: 99203

== ENCOUNTER 2024-04-23 08:36 | Outpatient (REF) | payer OTHER, SELFPAY ==
--- NOTE | ~2024-04-23 | XR_ITS ---
EXAMINATION: XR PELVIS CLINICAL INFORMATION: S32.000A - Wedge compression fracture of unspecified lumbar vertebra. COMPARISON: X-ray lumbar spine 01/05/2016, MR lumbar spine 11/05/2015. TECHNIQUE: AP view of the pelvis. FINDINGS: Diffuse demineralization. Moderate degenerative changes in bilateral sacroiliac joints. Degenerative changes in the imaged lower lumbar spine. Moderate degenerative changes in bilateral hips. XR/XR pelvis 1-2V IMPRESSION: 1. Moderate degenerative changes in bilateral sacroiliac joints. 2. Moderate degenerative changes in bilateral hips. 3. Diffuse demineralization. Electronically signed by: Earnestine Phillips MD 05/26/2024 01:01 PM EST
== END 2024-04-23 08:37 | disposition home or self-care (01) ==
LOC: HO.HOSX 08:36
PROVIDERS: PCP Nurse Practitioner; Visit Provider Physical Medicine & Rehabilitation
DX: M54.50 Low back pain, unspecified (principal); G89.29 Other chronic pain; S32.010D Wedge compression fracture of first lumbar vertebra, subsequent encounter for fracture with routine healing; Z87.39 Personal history of other diseases of the musculoskeletal system and connective tissue
CPT/HCPCS: 72170; 99202

== ENCOUNTER 2024-05-19 10:33 | Outpatient (AMB) | payer OTHER, SELFPAY ==
[2024-05-19 10:36] VITALS: BMI 27.7
--- NOTE | 2024-05-19 10:36 | MHC.OFFVIS ---
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 Patient reports morning numbness and tingling, right index and right middle finger are worse. Patient states she has pain on her right palm throughout the day, worse in the morning. Patient also reports right middle finger locking. Patient reports history of arthritis on bilateral thumb, causing pain. Denies any prior injuries or surgeries to the hands. 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 The patient reports that she does have numbness and tingling in all of her digits, and then symptoms are nearly constant, daily, and worse at night. The patient states that these symptoms frequently make it hard for her to cook or lift things. The patient also states that she has noticed marked weakness in her right hand. Patient states she has not had any EMG or nerve conduction study done. No numbness and tingling on the left. No other acute complaints or concerns this time. FORMERLY [facility], [facility] Medical History (Updated 05/19/24 @ 11:04 by EMILY Spears) History of osteoporosis Broken arm Vitamin D deficiency Urinary incontinence Rib fracture Osteoarthritis HTN (hypertension) Bilateral cataracts Low back pain potentially associated with radiculopathy Parkinson's disease Surgical History (Updated 04/14/24 @ 12:16 by JOVANNA Camacho) History of esophagogastroduodenoscopy (EGD) H/O shoulder surgery Social History Household Members Other:: lives alone Alcohol intake: never Patient Tobacco Use Status: Never used Tobacco Physical Exam Vital Signs: BMI result Body Mass Index 27.7 Extrem Other: Neuro: Normal sensation of the tips of all digits of bilateral hands in the office today There is evidence of intrinsic wasting on the right when compared to the left Good APB muscle firing and good finger cross. Vascular: Capillary refill brisk. ROM: Patient can make a fist and extend all their digits, but reports some discomfort in the dorsal right index finger when doing so. Skin: No lacerations or abrasions noted. General: No ecchymosis. No erythema or evidence of infection. Assessment & Plan Assessment & Plan (1) Stiffness of right hand joint: Code(s): M25.641 - Stiffness of right hand, not elsewhere classified Category: Medical Plan 1. Numbness and tingling of right hand Symptoms almost constant, daily, worse at night Evidence of intrinsic wasting on physical exam Patient has no EMG and nerve conduction study performed Therefore, patient was referred for EMG and nerve conduction study to assess the health of the nerves of the right upper extremity Patient will follow-up after EMG and nerve conduction study for results review and discussion of further treatment options if indicated Patient is amenable to this plan 2. Stiffness of right hand Patient was referred to occupational therapy for range of motion and strengthening of the right hand in the setting of stiffness Patient is advised that she should do her occupational therapy exercises at home every day Patient is also provided with [id number]-sp-[id number] exercises to perform at home while awaiting OT appointment Patient is amenable to this plan Patient will follow-up after EMG and nerve conduction study, sooner with any acute concerns Orders: Orders XR hand LT min 3V Today M79.642 - Pain in left hand OT Evaluation and Treatment Today M25.641 - Stiffness of right hand, not elsewhere classified NE electromyogram (EMG) Today R20.0 - Anesthesia of skin, R20.2 - Paresthesia of skin NE nerve conduction velocity Today R20.0 - Anesthesia of skin, R20.2 - Paresthesia of skin XR hand RT min 3V Today M79.641 - Pain in right hand Coding Level of Care Code New Pt Level 3 (49867) Diagnoses Stiffness of right hand joint M25.641
== END 2024-05-19 11:08 | disposition home or self-care (01) ==
PROVIDERS: PCP Nurse Practitioner
DX: M25.641 Stiffness of right hand, not elsewhere classified (principal)
CPT/HCPCS: 99203

== ENCOUNTER 2024-05-19 10:40 | Outpatient (REF) | payer OTHER, SELFPAY | END 2024-05-19 10:41 | disposition home or self-care (01) | LOC: HO.HOSX 10:40 | DX: M79.642 Pain in left hand (principal); M79.641 Pain in right hand; M25.641 Stiffness of right hand, not elsewhere classified | CPT/HCPCS: 73130; 99202 ==

== ENCOUNTER 2024-05-23 08:47 | Outpatient (AMB) | payer OTHER, SELFPAY ==
[2024-05-23 08:50] VITALS: BMI 27.7
--- NOTE | 2024-05-23 08:50 | A.OFFVIS_ITS ---
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 Patient reports pain is about the same as the last visit. Denies numbness or tingling. Denies weakness. She continues to use a walker with wheels for ambulation. Patient will be starting PT next week at [facility] in [place]. Spinner Cap Frame Required: Yes Spinner Cap Frame Language: Lebanese Spinner Cap Frame Name: [id number] Accompanied by: MAINTENANCE PARTS TECHNICIAN Allergies Sulfa (Sulfonamide Antibiotics) Allergy (Mild, Verified 05/23/24 08:50) Swelling HPI Comments Details: History of Parkinsons. She had kyphoplasty T12 and L1 last 11/02/23, by Dr. Bhagat. She says the pain did not go away and that is worse. Last MRI probably was this year, at [facility]. No other past injections. Chronic back pain but she says pain is much worse now, after the fracture, poin ts to midline lumbar area, then goes to the right hip/buttocks area. It does not radiate to her leg or foot. Denies feet numbness. No PT She fractured left humerus in July 2023 after a fall. While in rehab facility, in August, had a fall which led to the compression fracture. History of osteoporosis, taking alendronate. 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 Since the last time I saw her, she hasn't started PT, to start next week, first appointment. Still the same kind of pain, in the lower back and left buttock. Denies groin pain. We did get last MRI 10/29 that showed the L1 compression fracture. Pelvic xray hasn't been read yet by Radiology. [facility] Medical History (Updated 05/23/24 @ 12:37 by Cherelle Bill MD) History of osteoporosis Broken arm Vitamin D deficiency Urinary incontinence Rib fracture Osteoarthritis HTN (hypertension) Bilateral cataracts Low back pain potentially associated with radiculopathy Parkinson's disease Surgical History (Updated 04/14/24 @ 12:16 by JOVANNA Camacho) History of esophagogastroduodenoscopy (EGD) H/O shoulder surgery Social History Household Members Other:: lives alone Alcohol intake: never Patient Tobacco Use Status: Never used Tobacco Physical Exam Vital Signs: BMI result Body Mass Index 27.7 Constitutional: Patient appears to be in no acute distress, well nourished and well developed. Patient was appropriately conversant and oriented. MSK: No specific abnormalities found on inspection of the spine and all extremities. No pain with palpation over the lumbar area. No pinpoint tenderness on spinous processes. No SI joint tenderness. No GT tenderness today. Most of her tenderness today were on piriformis, bilateral. Lumbar ROM was full. Bilateral hip, knee and ankle ROM WNL. No ligamentous laxity or crepitance. No i ncreased effusion. Straight-leg raising test negative. FABERE test negative. Results Reviewed Results Reviewed: Report of last MRI reviewed. Dated 10/30/2023. Reported chronic L1 compression fracture. She had a kyphoplasty done 11/02/2023. Pelvic x-rays done in the office last visit has not been read officially by radiology. No obvious fracture to me. Images shown to patient. Assessment & Plan Assessment & Plan (1) Piriformis syndrome of both sides: Code(s): G57.03 - Lesion of sciatic nerve, bilateral lower limbs Category: Medical (2) Low back pain: Code(s): M54.50 - Low back pain, unspecified Category: Medical Qualifiers: Chronicity: chronic Back pain laterality: midline Sciatica presence: without sciatica Qualified Code(s): M54.50 - Low back pain, unspecified; G89.29 - Other chronic pain (3) Lumbar compression fracture: Code(s): S32.000A - Wedge compression fracture of unspecified lumbar vertebra, initial encounter for closed fracture Category: Medical Qualifiers: Encounter type: initial encounter Lumbar vertebra fracture level: L1 Qualified Code(s): S32.010A - Wedge compression fracture of first lumbar vertebra, initial encounter for closed fracture (4) History of osteoporosis: Code(s): Z87.39 - Personal history of other diseases of the musculoskeletal system and connective tissue Category: Medical Plan Today showing focal tenderness over piriformis. Advised them to bring it up with PT so they can address. If not improved with PT, offered injection on next follow-up. But patient defers. No point tenderness over spinous processes. Assessment and plan discussed with patient, and patient was agreeable. All questions were answered thoroughly. Follow up 2 months or after PT. Cherelle Bill MD, KECIA Board Certified, [place] Board of Physical Medicine and Rehabilitation (ABPMR) Board Certified, [place] Board of Electrodiagnostic Medicine (ABEM) Coding Level of Care Code Est Pt Level 4 (35482) Complex EM visit Add On G2211 Diagnoses Piriformis syndrome of both sides G57.03 Chronic midline low back pain without sciatica M54.50; G89.29 Chronicity: chronic Back pain laterality: midline Sciatica presence: without sciatica Compression fracture of L1 vertebra, initial encounter S32.010A Encounter type: initial encounter Lumbar vertebra fracture level: L1 History of osteoporosis Z87.39
== END 2024-05-23 09:48 | disposition home or self-care (01) ==
PROVIDERS: PCP Nurse Practitioner; Visit Provider Physical Medicine & Rehabilitation
DX: G57.03 Lesion of sciatic nerve, bilateral lower limbs (principal); M54.50 Low back pain, unspecified; G89.29 Other chronic pain; S32.010A Wedge compression fracture of first lumbar vertebra, initial encounter for closed fracture; Z87.39 Personal history of other diseases of the musculoskeletal system and connective tissue
CPT/HCPCS: 99214; G2211

== ENCOUNTER → 2024-05-23 08:47 | Outpatient (BNVA) | payer OTHER, SELFPAY | PROVIDERS: PCP Nurse Practitioner; Visit Provider Physical Medicine & Rehabilitation | DX: G57.03 Lesion of sciatic nerve, bilateral lower limbs (principal); S32.010A Wedge compression fracture of first lumbar vertebra, initial encounter for closed fracture; M54.50 Low back pain, unspecified; G89.29 Other chronic pain; Z87.39 Personal history of other diseases of the musculoskeletal system and connective tissue | CPT/HCPCS: 99212 ==

== ENCOUNTER 2024-06-17 06:13 | Outpatient (REF) | payer OTHER, SELFPAY ==
--- NOTE | 2024-06-17 06:16 | EMG_ITS ---
FINDINGS: Right median and ulnar motor and sensory studies were performed. Right radial sensory study was performed and paraspinal muscles were tested with a needle. IMPRESSION: 1. 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 2. Mild right ulnar neuropathy across cubital tunnel. MD KELSIE Rangel/SWEETIE / [phone]
--- OUTSIDE RECORDS SUMMARY | 2024-06-18 18:26 | XMS_ITS | Continuity of Care Document ---
Author Organization [facility] Address [address] [place] [address] [address] [place] [address] Phone Care Team Providers Care Director Of Business Development Name Role Phone Yajaira Lockwood M.D. Unavailable Unavailable Allergies, Adverse Reactions, Alerts Substance Reaction Status Criticality sulfanilamide Active No Information Medications Medication Instructions Dosage Effective Dates (start - stop) Status Comments amlodipine 2.5 mg tablet take 1 tablet by oral route every day 2.5 MG - Active MULTIVITAMINS (unknown strength) Not Available - Active Procedures Procedure Date Comp Exam New Pt Refraction Visual Field Examination(s) Imaging Of Optic Nerve Sensorimotor Ophth Svc Int Visual Field Examination(s) Nerve Fiber Analyzer Nerve Fiber Analyzer Corneal Pachymetry Level 1 Comp Exam New Pt Refraction Fundus Disc Photos Advance Directives Directive Yes / No Effective Date File Name Resuscitation Not Answered N/A N/A Life Support Not Answered N/A N/A Intubation Not Answered N/A N/A Antibiotics Not Answered N/A N/A IV Fluid Support Not Answered N/A N/A Tube Feed Not Answered N/A N/A Other Directive N/A N/A WARNING:The information contained in this section is historical and is provided for information only and does not constitute a legal document or any assurance that the information is still accurate. Please verify the information with the shanks of the legal document before using it for clinical purposes. Encounters Encounter Description Practice Location Reason(s) For Visit Diagnoses Date Provider Providers Copied on Encounter [facility], [address] [place], [place], [id number], tel:[phone] [facility] [place] Open Angle Glaucoma, UnspecifiedOcu lar HypertensionKe ratoconjunctiv itis SiccaAstigmati sm, RegularPre-Gla ucoma, UnspecifiedOpe n Angle Glaucoma, UnspecifiedPar kinson's DiseasePre-Gla ucoma, UnspecifiedExo phoria Sep-0 3-201 3 Kostina Yajaira. [address] [place] [address], [id number] , . 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 [address] [place] [address], [id number] , . tel: [phone] [facility], [address] [place] [address], [id number], tel:[phone] [facility] [place] - blurry vision (chief complaint)-gla re (chief complaint)-dry eyes (chief complaint)- (chief complaint)- (chief complaint)- (chief complaint) Astigmatism, RegularKeratoc onjunctivitis SiccaOptic Nerve Asymmetry/Larg e CupsGlaucoma Suspect Apr-0 6-201 0 Kostina Yajaira. [address] [place] [address], [id number] , [place]. tel: [phone] Family History Family Member Type Diagnosis Age At Onset Mother Problem (finding) Cancer, Diabetes, Strok e, Cataract Payers Payer name Insurance type Covered republican ID Thelma tamez(s) [facility] CI [id number] Social History Type Description Quantity Date Captured Comments Alcohol Use Details No Caffeine Use Details Unknown Tobacco Use Status No Information Smoking Status Former smoker Smoking Tobacco Use Details Cigarette: Years Used 10 Cigarette: 1 Packs per day, Pack Year: 10 Sex Female Chief Complaint And Reason For Visit No Information Plan Of Treatment Date Type Action Status No Information History Of Present Illness Encounter Date Complaint History Of Prese nt Illness No Information Instructions Date Instruction Additional Infor mation No Information Assessments Type Assessment Date No Information
== END 2024-06-17 06:14 | disposition home or self-care (01) ==
LOC: HO.NEURO 06:13
PROVIDERS: PCP Nurse Practitioner
DX: R20.0 Anesthesia of skin (principal); R20.2 Paresthesia of skin
CPT/HCPCS: 95886; 95909

== ENCOUNTER 2024-07-07 08:30 | Outpatient (AMB) | payer OTHER, SELFPAY ==
--- NOTE | 2024-07-07 08:31 | MHC.OFFVIS ---
Vital Signs 07/07/24 08:37 Height 4 ft 11.06 in Weight 146 lb BMI 29.4 Handedness Right Intake Visit Reasons: OV-Right hand EMG/NCS review Intake Note: Fatou is a 78 year old right hand dominant female who presents today for an EMG review of her right hand s/p EMG done on 06/17/2024. Patient would like to discuss surgical treatment. Restaurant General Manager Required: Yes Restaurant General Manager Language: [place]erratian Restaurant General Manager Name: [id number] Allergies Sulfa (Sulfonamide Antibiotics) Allergy (Mild, Verified 07/07/24 08:38) Swelling HPI HPI OV-Right hand EMG/NCS review: Details: Patient is an 78-year-old female who presents for right hand EMG and nerve conduction study review. The patient states that her symptoms have remained consistent from previous evaluation, in that her numbness and tingling are intermittent, but daily, and worse at night. Patient states she does have significant discomfort with range of motion still in her right hand and wrist, and states that she has not received a call from occupational therapy since her previous evaluation when she was referred there originally. Patient states that she would like to have a discussion about any potential surgical intervention indicated. Patient denies any numbness or tingling in the right small finger. No other acute complaints or concerns at this time. [facility] Medical History (Updated 07/07/24 @ 08:54 by EMILY Spears) History of osteoporosis Broken arm Vitamin D deficiency Urinary incontinence Rib fracture Osteoarthritis HTN (hypertension) Bilateral cataracts Low back pain potentially associated with radiculopathy Parkinson's disease Surgical History (Updated 04/14/24 @ 12:16 by JOVANNA Camacho) History of esophagogastroduodenoscopy (EGD) H/O shoulder surgery Social History Household Members Other:: lives alone Alcohol intake: never Patient Tobacco Use Status: Never used Tobacco Review of Systems Const All systems reviewed & are unremarkable except as noted in HPI and below Physical Exam Vital Signs: BMI result Body Mass Index 29.4 Extrem Other: Neuro: Normal sensation of the tips of all digits of bilateral hands in the office today There is evidence of intrinsic wasting on the right when compared to the left Good APB muscle firing and good finger cross. Vascular: Capillary refill brisk. ROM: Patient can make a fist and extend all their digits, but reports some discomfort in the dorsal right index finger when doing so. Skin: No lacerations or abrasions noted. General: No ecchymosis. No erythema or evidence of infection. Results Reviewed Results Reviewed: IMPRESSION: 1. 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 2. Mild right ulnar neuropathy across cubital tunnel. Antoinette Mehta MD MZK/MODSuleman Assessment & Plan Assessment & Plan (1) Bilateral hand pain: Code(s): M79.641 - Pain in right hand; M79.642 - Pain in left hand Category: Medical (2) Right carpal tunnel syndrome: Code(s): G56.01 - Carpal tunnel syndrome, right upper limb Category: Medical Plan 1. Carpal tunnel syndrome, right 2. Stiffness and pain of right hand and wrist Patient is educated about these conditions Patient is educated about the treatment options available and typical recovery course After lengthy discussion about risks and benefits of surgery, patient states she would like to have some time to consider surgery and the impact it may have on her life prior to getting signed up Patient states she will accept repeat referral to occupational therapy for range of motion and strengthening of the right hand and wrist Patient will follow-up when she makes her decision about surgery, sooner with any concerns Orders: Orders OT Evaluation and Treatment Today G56.01 - Carpal tunnel syndrome, right upper limb, M79.641 - Pain in right hand, M79.642 - Pain in left hand Coding Level of Care Code Est Pt Level 4 (91459) Diagnoses Bilateral hand pain M79.641; M79.642 Right carpal tunnel syndrome G56.01
[2024-07-07 08:37] VITALS: BMI 29.4
== END 2024-07-07 09:13 | disposition home or self-care (01) ==
PROVIDERS: PCP Nurse Practitioner
DX: M79.641 Pain in right hand (principal); M79.642 Pain in left hand; G56.01 Carpal tunnel syndrome, right upper limb
CPT/HCPCS: 99214

== ENCOUNTER → 2024-07-07 08:30 | Outpatient (BNVA) | payer OTHER, SELFPAY | PROVIDERS: PCP Nurse Practitioner | DX: M79.641 Pain in right hand (principal); M79.642 Pain in left hand; G56.01 Carpal tunnel syndrome, right upper limb | CPT/HCPCS: 99212 ==

== ENCOUNTER 2024-08-06 09:51 | Outpatient (RCR) | payer OTHER, SELFPAY ==
--- NOTE | 2024-07-18 09:26 | MHC.OT.EP ---
[address] [phone] Occupational Therapy Plan of Care Patient Name: Fatou Hardin Date of Evaluation: 07/18/24 Diagnosis: B/L hand pain and R CTS Pain Location: General pain in right hand/digits Pain Score: 8 Pain Scale Used: Numeric (0 - 10) Aggravating Factors: Worse with movement and general use Alleviating Factors: Feels better since starting at the gym Assessment: 78 yo female reports onset of right hand tingling a few months ago, mostly during the day but at times but cramping at nighttime. She was seen by PCP and referred to orthopedics. EMG consistent with mild ulnar neuropathy at cubital tunnel and moderate median neuropathy over carpal tunnel. On assessment today, she has good ROM and okay strength, but weak on right compared to non-dominant left (R 35lb L 45lb). She has visible arthritic deformities B/L'ly, primarily at CMCs w/ left worse than right, she also has some shoulder tightness from TSA a few years ago. Phalen's and Tinel's are (-), but she reports symptoms consistent w/ CTS, including waking with tingling and difficulty grasping and manging small objects at home. She is hopeful for progress w/ conservative treatment and we will trial w/ orthosis, exercises, activity modification and joint protection. Frequency and Duration: The patient will be seen 2x/wk for 4 weeks Short Term Goals: Ind w/ nighttime orthosis wear Ind w/ HEP for tendon glides and median nerves glides Good follow through w/ CMC joint protection techniques Snf Goals: Pt to report ease of daytime/nighttime CTS tingling Right gross grasp >45lb Pt to report ease w/ small object manipulation Treatment Plan: Therapeutic Exercise Therapeutic Activity Home Exercise Program Splinting Neuro Re-ed Patient Education Desensitization/Sensory Re-ed Edema Control ADL Training Ultrasound MHP Cold Packs Joint Mobilization Soft Tissue Mobilization Kinesiotaping Nighttime wrist orthosis, consider low thumb spica for CMC Electronically Signed By: Odilia Aly OTR/L CHT Please Sign and return to therapist. Thank you once again for your referral.
== END 2024-08-06 13:12 | disposition home or self-care (01) ==
LOC: HO.OT 09:51
PROVIDERS: PCP Nurse Practitioner
DX: M79.641 Pain in right hand (principal); M79.642 Pain in left hand; G56.01 Carpal tunnel syndrome, right upper limb
CPT/HCPCS: 29125; 97035; 97110; 97140; 97165; 97760

== ENCOUNTER 2024-10-03 09:46 | Outpatient (AMB) | payer OTHER, SELFPAY ==
[2024-10-03 09:50] VITALS: BMI 29.5
--- NOTE | 2024-10-03 09:50 | MHC.OFFVIS ---
Vital Signs 10/03/24 09:50 Height 4 ft 11 in Weight 146 lb BMI 29.5 Intake Visit Reasons: OV- B/L low back pain with B/L sciatica-follow up Intake Note: Fatou is an 78 year old female who presents today for a follow up of her low back pain. At her last visit she completed XR prior to departure for Pelvis XR to rule out pelvic insufficiency fracture. She continues to meet with [facility] for Physical Therapy. Patient reports that she is feeling better, fine Price Accuracy Supervisor Required: Yes Price Accuracy Supervisor Name: Magy [email or web address] Allergies Sulfa (Sulfonamide Antibiotics) Allergy (Mild, Verified 07/07/24 08:38) Swelling HPI Comments Details: History of Parkinsons. She fractured left humerus in July 2023 after a fall. While in rehab facility, in August, had a fall which led to the compression fracture. History of osteoporosis, taking alendronate. She currently lives a home for elderly, here with home connect lpn. MRI 10/29 showed the L1 compression fracture. She had kyphoplasty T12 and L1 last 11/02/23, by Dr. Bhagat. Pelvic xray didn't show fracture but did show degenerative changes on SI joints and hip joints. She's been able to get up and walk much better. No pain. Denies groin pain. She points to right SI/buttocks area as source of pain. She feels this more as she gets up but it eases up the more she walks and moves, then pain goes away. She just finished PT last month. On a separate issue, she had EMG by Dr. Mehta which reported CTS and have met with Damian DIAZ. However patient has not decided on surgery yet. [facility] Medical History (Updated 10/03/24 @ 10:03 by Cherelle Bill MD) History of osteoporosis Broken arm Vitamin D deficiency Urinary incontinence Rib fracture Osteoarthritis HTN (hypertension) Bilateral cataracts Low back pain potentially associated with radiculopathy Parkinson's disease Surgical History (Updated 04/14/24 @ 12:16 by JOVANNA Camacho) History of esophagogastroduodenoscopy (EGD) H/O shoulder surgery Social History Household Members Other:: lives alone Alcohol intake: never Patient Tobacco Use Status: Never used Tobacco Physical Exam Vital Signs: BMI result Body Mass Index 29.5 Constitutional: Patient appears to be in no acute distress, well nourished and well developed. Patient was appropriately conversant and oriented. MSK: No specific abnormalities found on inspection of the spine and all extremities. No pain with palpation over the lumbar area. No pinpoint tenderness on spinous processes. No SI joint tenderness. No GT tenderness today. Mildly tender right piriformis. Uses rolling walker. Assessment & Plan Assessment & Plan (1) Sacroiliac joint dysfunction of right side: Code(s): M53.3 - Sacrococcygeal disorders, not elsewhere classified Category: Medical (2) Degenerative joint disease of both hips: Code(s): M16.0 - Bilateral primary osteoarthritis of hip Category: Medical Qualifiers: Osteoarthritis type: primary Qualified Code(s): M16.0 - Bilateral primary osteoarthritis of hip (3) History of osteoporosis: Code(s): Z87.39 - Personal history of other diseases of the musculoskeletal system and connective tissue Category: Medical (4) Lumbar compression fracture: Code(s): S32.000A - Wedge compression fracture of unspecified lumbar vertebra, initial encounter for closed fracture Category: Medical Qualifiers: Encounter type: initial encounter Lumbar vertebra fracture level: L1 Qualified Code(s): S32.010A - Wedge compression fracture of first lumbar vertebra, initial encounter for closed fracture (5) Right carpal tunnel syndrome: Code(s): G56.01 - Carpal tunnel syndrome, right upper limb Category: Medical Plan 1. Xrays showed SI and hip DJD. Tender on right piriformis. Doing well though. No new falls or injuries. 2. Right CTS - patient not wanting surgery at this point, follow up with Hand Surgery if she decides. Assessment and plan discussed with patient, and patient was agreeable. All questions were answered thoroughly. No further follow up with me unless pain recurs/worsens. Cherelle Bill MD, KECIA Board Certified, [place] Board [employer] Medicine and Rehabilitation (ABPMR) Board Certified, [place] Board of Electrodiagnostic Medicine (ABEM) Coding Level of Care Code Est Pt Level 3 (85673) Diagnoses Sacroiliac joint dysfunction of right side M53.3 Primary osteoarthritis of both hips M16.0 Osteoarthritis type: primary History of osteoporosis Z87.39 Compression fracture of L1 vertebra, initial encounter S32.010A Encounter type: initial encounter Lumbar vertebra fracture level: L1 Right carpal tunnel syndrome G56.01
== END 2024-10-03 10:11 | disposition home or self-care (01) ==
LOC: HO.HOS 09:46
PROVIDERS: PCP Nurse Practitioner; Visit Provider Physical Medicine & Rehabilitation
DX: M53.3 Sacrococcygeal disorders, not elsewhere classified (principal); M16.0 Bilateral primary osteoarthritis of hip; Z87.39 Personal history of other diseases of the musculoskeletal system and connective tissue; S32.010A Wedge compression fracture of first lumbar vertebra, initial encounter for closed fracture; G56.01 Carpal tunnel syndrome, right upper limb
CPT/HCPCS: 99213

== ENCOUNTER → 2024-10-03 09:46 | Outpatient (BNVA) | payer OTHER, SELFPAY | PROVIDERS: PCP Nurse Practitioner; Visit Provider Physical Medicine & Rehabilitation | DX: M53.3 Sacrococcygeal disorders, not elsewhere classified (principal); S32.010D Wedge compression fracture of first lumbar vertebra, subsequent encounter for fracture with routine healing; G56.01 Carpal tunnel syndrome, right upper limb; M16.0 Bilateral primary osteoarthritis of hip; Z87.39 Personal history of other diseases of the musculoskeletal system and connective tissue | CPT/HCPCS: 99212 ==

== ENCOUNTER 2024-10-22 10:48 | Outpatient (AMB) | payer OTHER, SELFPAY ==
[2024-10-22 10:54] VITALS: BP 110/70; BMI 31.7
--- NOTE | 2024-10-22 10:54 | MHC.OFFVIS ---
Vital Signs 10/22/24 10:54 Height 4 ft 11 in Weight 157 lb BMI 31.7 BP 110/70 Blood Pressure Location Rt brachial Position Sitting Intake Visit Reasons: Follow Up Intake Note: Patient presents follow up for Parkinson's Housekeeping Laundry Worker Required: Yes Housekeeping Laundry Worker Name: Lewis [id number] Accompanied by: Self / Same As Patient Allergies Sulfa (Sulfonamide Antibiotics) Allergy (Mild, Verified 10/22/24 11:00) Swelling Medication List - Last Reconciled 10/22/24 by JOVANNA Camacho alendronate 70 mg PO QWEEK calcium citrate 200 mg PO DAILY 30 days carbidopa-levodopa 25-100 mg 2 tabs PO QID 30 days cholecalciferol (vitamin D3) (Vitamin D3) 125 mcg PO DAILY diclofenac sodium 1% 2 grams topical QID gabapentin 100 mg PO TID 30 days latanoprost 0.005% drps ophthalmic (eye) methimazole 5 mg PO DAILY mirabegron ER (Myrbetriq) 25 mg PO DAILY [id number]-kes-zqvz fum-folic ac 18 mg iron- 400 mcg (One-A-Day Women's Complete) tabs PO omeprazole 20 mg PO BID pantoprazole 20 mg PO QAM 30 days pramipexole 0.25 mg orally QID; 30 days rasagiline 1 mg PO DAILY 30 days torsemide 5 mg PO DAILY HPI Comments Details: 77-yr-old female presents for f/u visit, accompanied by her PROGRAMMER ENGINEERING AND SCIENTIFIC. Pt denies any significant interval changes. Pt saw [facility]- had EMG/NCS showed right CTS- however pt declined surgical intervention- she is scared to do this. She did a course of OT- which initially helped, but she thinks the effects subsided. She does wear a wrist splint at night, which helps. She also saw physiatry for hip/back pain- per last note, pt felt she was doing well- no tx's indicated. She did undergo a kyphoplasty after the last visit, states she continues to have back pain. Primary PD concenrs- walking slower, now needs a walker. speech is slower. She notes that she is still having morning SBP as high 200. She tries to take a hot shower, which helps. She takes lisinopril 5mg and torsemide 5mg. States she does not have a guide cruise. Her PCP is at [facility] PROFESSIONAL FIGHTER. Her aircraft de icer installer is Neli Dexter at [place]. Pt's current PD medication regimen:? Carbidopa-levodopa 2 tabs qid.? Pramipexole 0.25 mg 1 q.i.d.? Rasagiline 1 mg daily. Living situation: Lives home alone in a senior apartment complex. Has a MATERIAL CHASER. ADL's:? Slow. Needs more help d/t her left hand. Swallowing: States no issues, as long as she takes small bites. Drooling:? Sometimes feels thirsty. Orthostatic lightheadedness:? May feel briefly unstable when she stands. Notes she does not drink enough - just takes water when she takes her pills. may take 1/2 cup of juice at times. Constipation:? Denies constipation. Stiffness:? In her hands. Tremor:?Denies Paresthesias: Right hand numbness- this comes and goes- depends on her hand position. Both hands hurt to put pressure on. Dyskinesia: Stable- not bothersome. Gait: again walking slower Falls:?2 almost falls since the last visit. Hallucinations:? Sometimes it may seem like something has passed by her- like a mouse. Memory:? May have some memory issues- no worrisome forgetful. Mood: Sad- attributes to the ongoing pain in her body and her overall condition that is starting to limit her abilities. Does not have a therapist- or good support person. She needs Chinese speaking provider. Sleep:? Sleeping ok. [facility] Medical History (Updated 10/22/24 @ 13:20 by JOVANNA Camacho) History of osteoporosis Broken arm Vitamin D deficiency Urinary incontinence Rib fracture Osteoarthritis HTN (hypertension) Bilateral cataracts Low back pain potentially associated with radiculopathy Parkinson's disease Surgical History History of esophagogastroduodenoscopy (EGD) H/O shoulder surgery Social History Household Members Other:: lives alone Alcohol intake: never Patient Tobacco Use Status: Never used Tobacco Physical Exam Vital Signs: Last Vital Signs BP 110/70 10/22/24 10:54 BMI result Body Mass Index 31.7 Const General: cooperative and no acute distress Resp Effort & Inspection: normal respiratory effort and able to speak in complete sentences Neuro Other: General: A&O, mild STM lapses. Expression: Mild decreased expression and blink Voice: ? Soft voice Tremor:? No visible tremor today. Dyskinesia: Generalized mild dyskinesia. Tone:? BUE rigidity, L > R finger posturing. Sensation: Lio hands intact. FFM:? Mild bradykinesia Foot taps:? Mild bradykinesia Gait:? Stands slowly, slight stoop, no arm swing, short steps with low floor clearance. Stride better w/ walker. Psych: Pleasant affect. Assessment & Plan Assessment & Plan (1) Parkinson's disease with dyskinesia: Code(s): G20.B1 - Parkinson's disease with dyskinesia, without mention of fluctuations Category: Medical (2) Bilateral hand pain: Code(s): M79.641 - Pain in right hand; M79.642 - Pain in left hand Category: Medical (3) HTN (hypertension): Code(s): I10 - Essential (primary) hypertension Category: Medical (4) Depression: Code(s): F32.A - Depression, unspecified Category: Medical Plan For Parkinson's: Discussed increasing or adjusting patient's Parkinson's medication to decrease slowness and stiffness, however she would like to wait until follow-up. Continue carbidopa levodopa 2 tabs QID.. Continue pramipexole 0.25mg QID Continue rasagiline 1 mg q.d. Continue to use walker. Offered referral to PT, patient declines at this time. Patient is open to referral to a psychologist, but request a therapist who is fluent in Chinese and sees patients in person. Order initiated. For hypertension: We will request Nephrology consult to assess if patient would be a good candidate for 24 hour blood pressure monitor to assess patient's reports of morning hypertension in setting of Parkinson's disease. For bilateral 1st finger/hand pain and posturing: EMG/NCS, ordered by ortho, showed moderate right carpal tunnel and mild right ulnar neuropathy. Patient declined surgical intervention of the right CTS. Continue to wear wrist splint at night. Follow-up with ortho and physiatry as scheduled. ? F/u in 6 months or sooner prn Orders: Referrals Psychology Referral F32.A - Depression, unspecified, G20.B1 - Parkinson's disease with dyskinesia, without mention of fluctuations Nephrology Referral I10 - Essential (primary) hypertension Medications: New lisinopril 5 mg PO DAILY Refilled pramipexole 0.25 mg orally QID; 30 days 120 tabs 6RF carbidopa-levodopa 25-100 mg 2 tabs PO QID 30 days 240 tabs 6RF rasagiline 1 mg PO DAILY 30 days 30 tabs 6RF Coding Level of Care Code Est Pt Level 4 (51132) Complex EM visit Add On G2211 Diagnoses Parkinson's disease with dyskinesia G20.B1 Bilateral hand pain M79.641; M79.642 HTN (hypertension) I10 Depression F32.A
--- OUTSIDE RECORDS SUMMARY | 2024-10-22 12:50 | XMS_ITS ---
Author Organization [facility] Jennyfer Diazley Address [address] [facility] [address] Care Team Providers Care Senior Counsel Name Role Phone Petra De La O Primary Care Provider UnavailMark Wylie Unavailable [phone] Allergies Allergen (clinical drug ingredient) Drug/Non Drug Allergy documented on EMR Reaction Allergy Type Onset Date Status Substance with sulfonamide structure and antibacterial mechanism of action (substance) Sulfa Antibiotics Unknown Drug Allergy Active REASON FOR VISIT At Risk Footcare, Painful Nail(s) aggrevated by shoes and causing difficulty standing/walking., Open sore - Toe Medications Medication SIG (Take, Route, Frequency, Duration) Notes Start Date End Date Status Voltaren Active Torsemide Active Ammonium Lactate 12 % 1 application to affected area Externally to feet Twice a day for 30 days Active Vitamin D3 Active Neosporin 500-68439 UNIT/GM 1 application as needed Externally Once a day for 7 days 11/15/2023 Active Mapap Extra Strength Active Lisinopril Active Omeprazole Active Rasagiline Mesylate Active Pramipexole Dihydrochloride Active Calcium Citrate 200 MG as directed Orally Active Alendronate Sodium 70 MG 1 tablet 30 min utes before the first food, beverage or medicine of the day with plain water Orally for 30 day(s) Active Gabapentin Not-Takin g Carbidopa-Levodopa A ctive Social History Tobacco Use: Social History Observation Description Date Details (start date - stop date) Never Smoker NA - NA Tobacco Use/Smoking Question Answer Notes Are you a: nonsmoker Additional Findings: Tobacco Non-User Current no n-smoker Tobacco use other than smoking: Question Answer Notes Are you an other tobacco user? 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 Problem Gout (32968738) Gout of left foot (M10.9) Active confirmed Vital Signs Height 4 ft 11 in in 04/07/2024 Weight 144 lbs 04/07/2024 BMI 29.08 kg/m2 04/07/2024 Procedures Procedure Date Ordered Date Performed Result Body Sit e 81511-VWJDEYJ NAIL, 6 OR MORE 04/07/2024 N/A 47691-TJSO SKIN LESIONS, OVER 4 04/07/2024 N/A Encounters Encounter Location Date Provider Diagnosis [facility] [address] [address] 04/07/2024 Mark Azar Atherosclerosis of white earth artery of both lower extremities, with unspecified presence of clinical manifestation I70.203 ; Onychomycosis B35.1 ; Pain of toe of right foot M79.674 ; Pain of toe of left foot M79.675 and Skin ulcer of toe of left foot, limited to breakdown of skin L97.521 Assessments Encounter Date Diagnosis (ICD Code) Assessment Notes Treatment Notes Treatment Clinical Notes Section Notes 04/07/2024 Atherosclerosis of white earth artery of both lower extremities, with unspecified presence of clinical manifestation (ICD-10 - I70.203) 04/07/2024 Onychomycosis (ICD-10 - B35.1) 04/07/2024 Pain of toe of right foot (ICD-10 - M79.674) 04/07/2024 Pain of toe of left foot (ICD-10 - M79.675) 04/07/2024 Skin ulcer of toe of left foot, limited to breakdown of skin (ICD-10 - L97.521) 04/07/2024 Other Plan Of Treatment Pending Test Test Name Order Date 21954-REJFDZK NAIL, 6 OR MORE 04/07/2024 33051-PJEP SKIN LESIONS, OVER 4 04/07/20 24 Next Appt Details Follow Up: 2 Months, Reason: Provider Name:Mark Azar , 01/14/2025 11:30:00 AM, [address] [facility], [place] [address], [place], [address], Procedure Notes * Category Sub-Category Detail Notes Debride Nail 6-10 Nail debridement Performance o f this nail treatment by a nonprofessional would put this patients foot and overall health at risk. Therefore, nail debridement was performed extensively to reduce/remove overall nail length, girth, thickness, subungual debris, and necrotic tissue, by manual and/or electrical means through the use of a nail nipper and/or dremel-type grinder brake lining, to a more viable healthy nail plate or bed tissue 6-10. Silver nitrate used for any petechial bleeding as necessary. Definitive antifungal treatment options have been reviewed and discussed with the patient. The patient chooses, no pharmaceutical tx - 73077 Keratoma Treatment Parring or Cutting o f Benign Hyperkeratotic Lesion(s) (-57) More than 4 Lesions - The Benign hyperkeratotic lesions, as described above were pared, and/or cut utilizing a sterile 15 blade, tissue nippers, and/or dremel - 28297 , Q8 Progress Notes * Andrews JACQUESaDOB:[birth year] (78 yo F)Acc No.[id number]:04/07/2024 Progress Note Patient:?SAWYER Andrews lucero Provider:?Mark Azar DPM :1945???Age:78 Y???Sex:Female D ate:04/07/2024 Address:[address] [place], [place] [id number] Pcp:Petra De La O Subjective: * Chief Complaints: * ???At Risk FootcarePainful N ail(s) aggrevated by shoes and causing difficulty standing/walking.Open sore - Toe * HPI: ???At Risk footcare:?Pt States Last PCP Visit:?Date?03/28/2024 ???Skin problems:?Location:?4th , Toe(s) , Left.?Treatments:?Local care consisting of daily distilled water wound cleanse, topical antibiotic as recommended, application of sterile dressing, offloading/pressure reduction via rest, shoe modification, insert modification, accommodative padding, assisted ambulation via cane, and surgical debridement.? * ROS:?General/Constitutional:?Nausea?denies.?Vomiting?denies.?Hunger Thirst?denies.?Loss appetite?denies.?Chills?denies.?Fatigue?denies.?Fever?denies.?Night Sweats?denies.?Unexplained weight loss?denies.?Unexplained weight gain?denies.?HEENTM:?Dentures?denies.?Dizziness?denies.?Glasses/contacts?denies.?Retinopathy?de nies.?Blurred/double vision?denies.?TMJ?denies.?Discharge/drainage?denies.?Implants?denies.?Sore throat?denies.?Dental implants?denies.?Hard of hearing ?denies.?Difficulty chewing/swallowing/speaking?denies.?Nose bleeds?denies.?Sore mouth?denies.?Respiratory:?On Oxygen?denies.?Pneumonia/pleurisy?denies.?Bronchitis?denies.?Emphysema?denies.?C oughing?denies.?Cough blood?denies.?Shortness of breath?denies.?Wheezing?denies.?Cardiovascular:?Pacemaker?denies,?denies.?MVP?denies,?denies.?WPW?denies,?denies.?CHF?ayanna es,?denies.?Heart attack?denies,?denies.?Septal defect?denies,?denies.?Rapid beat?denies,?denies.?Chest pain ?denies.?Atrial Fib.?denies.?Murmur/Palpitations?denies.?Gastrointestinal:?Hemorrhoids?denies,?denies.?Stomach/Abdominal pain?denies,?denies.?Dark blood stool?denies,?denies.?Irritable bowel ?denies,?denies.?Constipation?denies,?denies.?Diarrhea?denies,?denies.?Hematology:?Swelling?admits,?admits.?Clots?denies,?denies.?Varicose Veins?denies,?denies.?Bruising?denies,?denies.?Bleeding problem?denies,?denies.?Genitourinary:?Blood urine?denies,?denies.?Frequent/Painfu/urination/bladder control?denies,?denies.?Kidney stones?denies,?denies.?Infection (UTI)?denies,?denies.?Nephropathy?denies,?denies.?sex trans dis (STD)?denies,?denies.?Prostate?denies,?denies.?Musculoskeletal:?Hammertoes?admits,?admits.?Bunions?admits,?admits.?Back Pain?denies,?denies.?Muscle Cramps/ Resting?denies,?denies.?Muscle cramps / walking?denies,?denies.?Generalized aches and pains?denies,?denies.?Weakness?admits, that is generalized,?admits, that is generalized.?Integ.:?Hernandez?denies,?denies.?Scars?denies,?denies.?Corns/calluses?admits,?admits. ?Ingrown nails?admits,?admits.?Painful nails?admits,?admits.?Open Sores?denies,?denies.?Rashes?denies,?denies.?Neurologic:?Difficulty sleeping?denies,?denies.?Brain disorder?denies,?denies.?Numbness?denies,?denies.?Balance trouble?admits,?admits.?Confusion?denies,?denies.?Fainting/blackouts?denies,?den ies.?Tingling?denies,?denies.?Tremors?denies,?denies.? * Medical History:? * Surgical History:?Denies Pas t Surgical History * Hospitalization/Major Diagno stic Procedure:?[facility]- chest pain, high blood pressure 02/2020[facility] - Fall, then rehab facility 07/31/23 * Family History:?Mother: dece ased.?Father: .? * Social History:?Tobacco Use:?Tobacco Use/Smoking?Are you a:?nonsmoker ?Additional Findings: Tobacco Non-User?Current non-smoker ?Tobacco use other than smoking?Are you an other tobacco user??No ???Miscellaneous:?Caffeine: no. ?Children: no. ?Exercise: yes, exercise. ?Marital status: . 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 * Medications:?TakingAlendrona te Sodium 70 MG Tablet 1 tablet 30 minutes before the first food, beverage or medicine of the day with plain water Orally Calcium Citrate 200 MG Tablet as directed Orally Carbidopa-Levodopa Lisinopril Mapap Extra Strength Omeprazole Pramipexole Dihydrochloride Rasagiline Mesylate Torsemide Voltaren Vitamin D3 Ammonium Lactate 12 % Cream 1 application to affected area Externally to feet Twice a day Neosporin 500-55449 UNIT/GM Ointment 1 application as needed Externally Once a day Taking Alendronate Sodium 70 MG Tablet 1 tablet 30 minutes before the first food, beverage or medicine of the day with plain water Orally Taking Calcium Citrate 200 MG Tablet as directed Orally Taking Carbidopa-Levodopa Taking Lisinopril Taking Mapap Extra Strength Taking Omeprazole Taking Pramipexole Dihydrochloride Taking Rasagiline Mesylate Taking Torsemide Taking Voltaren Taking Vitamin D3 Taking Ammonium Lactate 12 % Cream 1 application to affected area Externally to feet Twice a day Taking Neosporin 500-41185 UNIT/GM Ointment 1 application as needed Externally Once a day Not-Taking/PRNGabapentin Medication List reviewed and reconciled with the patientNot-Taking/PRN Gabapentin Medication List reviewed and reconciled with the patient * Allergies:?Sulfa Antibiotics yes[Allergies Verified] Objective: * Vitals:?Ht: 4 ft 11 in, Wt: 144, BMI: 29.08, Shoe size: 6.5, Wt-k.32 kg. * Examination: ???Vascular: ?DP PULSES (B):? 0/4, B/L.?PT PULSES (B):? 0/4, B/L.?CAPILLARY FILL TIME:? delayed, all digits, B/L.?TROPHIC CONDITION-TEXTURE/ELASTICITY/TURGOR/HAIR GROWTH (B):? decreased, with sparse to absent hair growth, B/L.?TEMPERTURE GRADIENT (C):? decreased, cool to cool, proximal to distal, B/L.?PIGMENTATION:? rubrous, B/L.?EDEMA (C):?absent, B/L.?CLAUDICATION (C):?admits , 16-30 min , B/L , Left?>?Right.?REST PAIN:?denies, B/L.?Nails: ?NAILS are:? Elongated, overgrown, dystrophic, lytic, greater than 3mm thick, discolored and friable with crumbly malodorous subungual debris, with pain on palpation, 1-5 B/L.?Dermatologic: ?SKIN FINDINGS:? Skin exam reveals Keratotic lesion(s) located at, Medial plantar, IPJ, TA, Medial plantar, IPJ, T5, Plantar, T6, Plantar, T8, SUB MTH (s), 1, B/L , SUB MTH (s), 2, B/L , SUB MTH (s), 3, B/L , SUB MTH (s), 5, B/L , Heel(s), B/L .?ULCER:?NOW shows complete re-epithelialization, Dorsal, T3.? Assessment: * Assessment: 1.?Onychomycosis - B35.1???2 .?Atherosclerosis of white earth artery of both lower extremities, with unspecified presence of clinical manifestation - I70.203???3.?Pain of toe of right foot - M79.674???4.?Pain of toe of left foot - M79.675 ??5.?Skin ulcer of toe of left foot, limited to breakdown of skin - L97.521???Specify :Acute problem, Stable (1=3),Response to treatment - Improvement??? Plan: * Treatment: 2.?Atherosclerosis of white earth artery of both lower extremities, with unspecified presence of clinical manifestation?Procedure: 62378-ZZNL SKIN LESIONS, OVER 4 * Procedures:?Debride Nail 6-10:?Nail debridement?Performance of this nail treatment by a nonprofessional would put this patients foot and overall health at risk. Therefore, nail debridement was performed extensively to reduce/remove overall nail length, girth, thickness, subungual debris, and necrotic tissue, by manual and/or electrical means through the use of a nail nipper and/or dremel-type grinder brake lining, to a more viable healthy nail plate or bed tissue 6-10. Silver nitrate used for any petechial bleeding as necessary. Definitive antifungal treatment options have been reviewed and discussed with the patient. The patient chooses, no pharmaceutical tx - 77606.?Keratoma Treatment:?Parring or Cutting of Benign Hyperkeratotic Lesion(s)?(-57) More than 4 Lesions - The Benign hyperkeratotic lesions, as described above were pared, and/or cut utilizing a sterile 15 blade, tissue nippers, and/or dremel - 53534 , Q8.? * Procedure Codes:?87195 DEBRI DE NAIL, 6 OR MORE, Modifiers: XS 62646 TRIM SKIN LESIONS, OVER 4, Modifiers: XS , Q8 * Preventive Medicine:? ??Counseling:?Discussion:?-12: Office or other outpatient visit for the evaluation and management of an established patient, which required a medically appropriate history and/or examination and STRAIGHTFORWARD level of MEDICAL DECISION MAKING, 1 SELF-LIMITED OR MINOR PROBLEM, MINIMAL- NO AMOUNT/COMPLEXITY OF DATA TO BE REVIEWED/ANALYZED, AND MINIMAL RISK OF COMPLICATION/MORBIDITY. The visit on the day of the encounter encompassed interpreting the data and educating the patient as to the nature of their condition, treatment options available according to their individual PMH, meds, allergies, and overall health/living conditions, as well as any potential risks or complications that may occur from a failure to adhere to, and participate in, the recommended course of therapy. The discussion included a complete verbal, and/or written explanation of the examination results, any x-rays taken, the proposed diagnosis, and outline of the treatment plan. A schedule for future care needs was also explained. The patient verbalized an understanding of the instructions at this time and agreed to be an active participant in their treatment. If the patient should think of any questions or concerns after the visit, I have encouraged the patient to call the office.?Ulcer:?PREVENTIVE STRATEGIES were reviewed with the patient to avoid recurrent ulceration. A set of verbal and written instructions regarding proper daily diabetic footcare techniques was discussed and dispensed. The patient is to pay close attention to skin hydration by maintaining proper moisturization through correct water consumption and consistent application of skin lotions/creams/ointments. They are also to perform regular visual and tactile foot inspections for any interruption in skin integrity including cracks, open lesions, and immediately report to the office any sign of infection such as redness/malodor/drainage/swelling. We discussed and recommended practices and procedures regarding regular shoe and insert evaluations for the presence of foreign bodies as well as for any irregular shoe or insert wear. We reinforced the importance for the patient to adhere to wearing their orthopedic shoes and pressure accommodative innersoles whenever walking. We stressed the significant value for the patient to remain consistent concerning their medically prescribed diet, participate in regular nonweight-bearing exercise (seated weights, exercise bike, or swimming), and keep their scheduled at risk foot care podiatric appointments. We also reviewed the possible role for additional Rx foot/leg bracing or surgical intervention when/if medically warranted.? ??Screening/Special Tests:?Fall Risk?Screening:?No falls in the past year ?FALLS: Screening for Future Fall Risk?Have you had any falls with injury in the past year??No * Follow Up:?2 Months * Images: * Sign off status: Completed true * Provider:Jose Carlos Azar DPM Date:?2023 Generated for Jesus harden/Claudia/Earnestitting on:?10/22/2024 12:50 PM EDT History and Physical Notes * HPI (History of Present Illness) Category Sub-Category Detail Notes Category Not es Skin problems Location: 4th , Toe(s) , Left Treatments: Local care consistin g of daily distilled water wound cleanse, topical antibiotic as recommended, application of sterile dressing, offloading/pressure reduction via rest, shoe modification, insert modification, accommodative padding, assisted ambulation via cane, and surgical debridement At Risk footcare Pt States Last PCP Visit: Date: Examination Category Sub-Category Detail Notes Category Not es Dermatologic SKIN FINDINGS: Skin exam reveal s Keratotic lesion(s) located at, Medial plantar, IPJ, TA, Medial plantar, IPJ, T5, Plantar, T6, Plantar, T8, SUB MTH (s), 1, B/L , SUB MTH (s), 2, B/L , SUB MTH (s), 3, B/L , SUB MTH (s), 5, B/L , Heel(s), B/L ULCER: NOW shows complete r e-epithelialization, Dorsal, T3 Vascular DP PULSES (B): 0/4, B/L PT PULSES (B): 0/4, B/L CAPILLARY FILL TIME: delayed, all digits , B/L TEMPERTURE GRADIENT (C): decreased, cool to cool, proximal to distal, B/L TROPHIC CONDITION-TEXTURE/ELASTICITY/TURGOR/HAIR GROWTH (B): decreased, with sparse to absent hair gr owth, B/L EDEMA (C): absent, B/L CLAUDICATION (C): admits , 16-30 min , B/L , Left > Right REST PAIN: denies, B/L PIGMENTATION: rubrous, B/L Nails NAILS are: Elongated, overg rown, dystrophic, lytic, greater than 3mm thick, discolored and friable with crumbly malodorous subungual debris, with pain on palpation, 1-5 B/L
--- OUTSIDE RECORDS SUMMARY | 2024-10-22 12:50 | XMS_ITS | Clinical Summary ---
Author Organization [facility] Address [address] [place] [address] Care Team Providers Care Produce Associate Name Role Phone Petra Hernandez NP Primary Care Provider [phone] Source Comments PLEASE NOTE, if this patient is a minor, it may be UNLAWFUL to discuss sensitive information that is contained in these records (such as FAMILY PLANNING, MENTAL HEALTH or SUBSTANCE ABUSE) with the minor patient's parent or other person without the patient's specific authorization.[facility] Allergies Active Allergy Reactions Criticality Noted Date Comments Sulfa (Sulfonamide Antibiotics) 04/09 Medications MISCELLANEOUS MEDICAL SUPPLY MISCIndications:S tress incontinence Adult pull ups size Medium x 99 years, wears 1 at night time. 90 Each 11 04/27/20 23 Active methIMAzole (TAPAZOLE) 5 mg tabletIndications :Hypercholesterol emia Take 1 Tablet by mouth once daily 30 Tablet 2 11/20/19 24 Active pramipexole (MIRAPEX) 0.25 mg tabletIndications :Parkinson's disease without dyskinesia, unspecified whether manifestations fluctuate (HCC-CMS) Take 1 Tablet by mouth 4 (four) times daily for 90 days 120 Tablet 2 12/18/19 24 Active rasagiline 1 mg tabIndications:Pa rkinson's disease without dyskinesia, unspecified whether manifestations fluctuate (HCC-CMS) Take 1 Tablet by mouth daily. 30 Tablet 12/18/19 24 Active latanoprost (XALATAN) 0.005 % ophthalmic solution Place 1 Drop into both eyes nightly at bedtime 2.5 mL 2 01/15/20 24 Active folic acid (FOLVITE) 1 mg tablet Take 1 Tablet by mouth once daily 90 Tablet 1 01/15/20 24 Active alendronate (FOSAMAX) 70 mg tabletIndications :Age related osteoporosis, unspecified pathological fracture presence Take 1 Tablet by mouth every 7 (seven) days 13 Tablet 1 01/21/20 24 Active calcium citrate (CALCITRATE) 200 mg (950 mg) tabletIndications :Age related osteoporosis, unspecified pathological fracture presence Take 1 Tablet by mouth once daily 90 Tablet 1 01/21/20 24 Active carbidopa-levodop a (SINEMET) 25-100 mg per tabletIndications :Parkinson's disease without dyskinesia, unspecified whether manifestations fluctuate ([facility]) Take 2 Tablets by mouth 4 (four) times daily for 90 days 240 Tablet 2 01/21/20 24 Active diclofenac sodium (VOLTAREN) 1 % gelIndications:Ag e related osteoporosis, unspecified pathological fracture presence APPLY TOPICALLY TWO TIMES A DAY NEEDED FOR PAIN (BULK) 100 g 1 04/16/20 24 Active VITAMIN D3 125 mcg (5,000 unit) tab tablet TAKE ONE TABLET BY MOUTH EVERY DAY ^1R2 30 Tablet 5 05/08/20 24 Active pantoprazole (PROTONIX) 40 mg EC tabletIndications :Gastroesophageal reflux disease without esophagitis TAKE ONE TABLET BY MOUTH EVERY MORNING BEFORE BREAKFAST ^1R1 30 Tablet 5 06/10/20 24 Active meclizine 25 mg chewable tabletIndications :Dizziness CHEW AND SWALLOW ONE TABLET BY MOUTH THREE TIMES A DAY NEEDED FOR DIZZINESS (VIAL) 30 Tablet 4 07/04/20 24 Active gabapentin (NEURONTIN) 100 mg capsuleIndication s:Cramp in limb TAKE ONE CAPSULE BY MOUTH EVERY EVENING AT BEDTIME (VIAL) 30 Capsule 4 07/04/20 24 Active torsemide (DEMADEX) 5 mg tabletIndications :Hypertension, unspecified type TAKE ONE TABLET BY MOUTH EVERY DAY ^1R1 30 Tablet 4 07/04/20 24 Active lisinopriL 5 mg tabletIndications :Primary hypertension TAKE ONE TABLET BY MOUTH EVERY DAY ^1R1 30 Tablet 5 07/30/19 25 Active MYRBETRIQ 25 mg [id number]:S tress incontinence TAKE ONE TABLET BY MOUTH EVERY DAY ^1R2 30 Tablet 2 09/23/19 25 Active ONE-A-DAY WOMEN'S COMPLETE 18 mg iron- 400 mcg tabIndications:Ag e related osteoporosis, unspecified pathological fracture presence TAKE ONE TABLET BY MOUTH EVERY MORNING ^1R3 30 Tablet 5 09/23/19 25 Active famotidine (PEPCID) 20 mg tabletIndications :Gastroesophageal reflux disease, unspecified whether esophagitis present TAKE ONE TABLET BY MOUTH TWICE A DAY ^1R1,1R4 60 Tablet 2 10/21/19 25 Active famotidine (PEPCID) 20 mg tabletIndications :Gastroesophageal reflux disease, unspecified whether esophagitis present TAKE ONE TABLET BY MOUTH TWICE A DAY ^1R1,1R4 60 Tablet 2 07/30/19 25 025 Discontinued Active Problems Problem Noted Date Diagnosed Date Prediabetes 01/22/2024 Obesity (BMI 30-39.9) 01/21/2024 Hyperthyroidism 01/21/2024 Overview (01/21/2024): 01/2024: [facility] in [facility] next appt mar 05 Closed left humeral fracture 09/21/2023 Overview (09/21/2023): Occurred 07/30 after mechanical fall during OV visit at [facility]. Patient seen at [facility] afterwards; given a splint and sling. Has Ortho on October 01. 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 08/01/2023 Unspecified fall, subsequent encounter 4 Muscle weakness 08/01/2023 Idiopathic osteoarthritis 08/01/2023 Fracture of shoulder 08/01/2023 Abnormal gait 04/27/2023 Abscess of back 04/27/2023 Atypical chest pain 04/27/2023 Bilateral cataracts 04/27/2023 Chronic lower back pain 04/27/2023 Compression fracture of lumbar vertebra (HCC-CMS ) 04/27/2023 Cramp in limb 04/27/2023 Degenerative arthritis of spine 04/27/2023 Hemiplegia ([facility]) 04/27/2023 HTN (hypertension) 04/27/2023 Inflammatory spondylopathy ([facility]) 2022 Lumbar radiculopathy 04/27/2023 Neural foraminal stenosis of lumbar spine 2022 Osteoarthritis of both knees 04/27/2023 Osteoporosis 04/27/2023 Parkinson disease ([facility]) 04/27/2023 Overview (03/03/2024): 03/03/24: pt suffered a fall at home, she is with ashkan at [place] [facility], next appt is 04/14/24 01/20/24: with ashkan at [facility], next appt 04/14/24. No falls since last visit. Lives alone, [facility] nurse visits weekly and [employer] daily by family member 10/2023: seen with domi, f/u 6 months Presence of dental prosthetic device 04/27/2023 Rib fracture 04/27/2023 Shoulder pain 04/27/2023 Stress incontinence of urine 04/27/2023 Vitamin D deficiency 04/27/2023 Resolved Problems Problem Noted Date Diagnosed Date Resolved Date Osteopenia 04/27/2023 03/18/2024 Upper respiratory infection 04/27/2023 05/28/2023 Encounters Date Type Department Care Team Description 10/06/2024 4:20 PM EDT Office Visit [address] [phone] Petra Hernandez NP Vasylyshyn, Oksana Skin tag (Primary Dx); Primary hypertension from Last 3 Months Immunizations Immunization Administration Dates Next Due Influenza (FLUZONE), high-dose, trivalent, PF Social History Tobacco Use Types Packs/Day Years Used Date Smoking Tobacco: Never Passive Smoke Exposure: Never Smokeless Tobacco: Never Alcohol Use Standard Drinks/Week Comments Never 0 (1 standard drink = 0.6 oz pur e alcohol) Social Connections Answer Date Recorded Connectedness 1 03/18/2024 Financial Resource Strain Answer Date R ecorded Financial Resource Strain 1 2023 Stress Answer Date Recorded Stress 1 03/18/2024 Physical Activity Answer Date Recorded Physical Activity 0 04/20/2023 Food Insecurity Answer Date Recorded Food 1 03/18/2024 Transportation Needs Answer Date Record ed Transportation 1 03/18/2024 Housing Stability Answer Date Recorded Housing 1 03/18/2024 Safety and Environment Answer Date Srinivas rded Safety 1 11/16/2023 Utilities Answer Date Recorded Utilities 1 03/18/2024 Employment Answer Date Recorded Stress 0 04/27/2023 Comments No Sex and Gender Information Value Date Recorded Sex Assigned at Female 03/28/2023 10:11 AM PDT Legal Sex Female 1:24 PM PDT Gender Identity Female 03/28/2023 10:11 AM PDT Sexual Orientation Straight 03/28/2023 10 :11 AM PDT Last Filed Vital Signs Vital Sign Reading Time Taken Comments Blood Pressure 152/86 10/06/2024 4:03 PM EDT Pulse 78 10/06/2024 4:03 PM EDT Temperature 36.7 ??C (98 ??F) 03/18/2024 9:47 AM EDT Respiratory Rate 16 10/06/2024 4:03 PM EDT Oxygen Saturation 98% 10/06/2024 4:03 PM EDT Inhaled Oxygen Concentration - - Weight 64 kg (141 lb) 10/06/2024 4:03 PM EDT Height 147.3 cm (4' 10 ) 10/06/2024 4:03 PM EDT Body Mass Index 29.47 10/06/2024 4:03 PM EDT Plan of Treatment Upcoming Encounters Date Type Department Care Team (Late st Contact Info) Description 11/19/2024 11:20 AM EDT Office Visit [address] [phone] Petra Hernandez NP [address] [place] [address] [place] [address] 12/19/2024 11:00 AM EDT Office Visit [address] [phone] Petra Hernandez NP [address] [place], [place] Health Maintenance Due Date Last Done Comments Imm-DTaP/Tdap/Td (1 - Tdap) 12/16/1962 Imm-Pneumococcal 65+ (1 of 1 - PCV) 12/16/1993 Imm-Zoster, Recombinant (1 of 2) 12/16/1993 Bone Density Screening 12/16/2008 [id number] (1 - season) 2024 Alcohol and Drug Screen 07/09/2024 03/18/20 24, 03/03/2024, 01/21/2024, Additional history exists Depression Annual Screen 07/09/2024 03/18/2024 Falls Prevention 09/20/2024 09/21/2023 Medicare Annual Wellness Visit 2024 12/18/2023 Imm-Influenza (#1) 2025 06/19/2017 Postponed from 03/09/2024 (Follow up visit) Tobacco Screening 01/20/2025 01/21/2024 Diabetes Screening 03/05/2025 03/05/2024, 0 01/21/2024, 01/21/2024, Additional history exists Procedures Procedure Name Priority Date/Time Associated Diagnosis Comments REFERRAL SCANNED DOCUMENT 10/03/2024 3:00 AM EDT HEMOGLOBIN GLYCOSYLATED A1C Routine 01/21/2024 9:45 AM EDT Obesity (BMI 30-39.9) Age related osteoporosis, unspecified pathological fracture presence Cramp in limb Parkinson's disease without dyskinesia, unspecified whether manifestations fluctuate ([facility]) Stress incontinence Hyperthyroidism from Last 3 Months or Most Recently Relevant to Health Maintenance Results * REFERRAL SCANNED DOCUMENT (10/03/2024 3:00 AM EDT) 10/03/2024 3:00 AM EDT Petra Hernandez NP SCAN REFERRAL Final Result * (ABNORMAL) HEMOGLOBIN GLYCOSYLATED A1C (01/21/2024 9:45 AM EDT) HEMOGLOBIN A1C 6.1(H) <5.7 % of total Hgb takokat Comment: For someone without known diabetes, a hemoglobin A1c value between 5.7% and 6.4% is consistent with prediabetes and should be confirmed with a follow-up test. For someone with known diabetes, a value <7% indicates that their diabetes is well controlled. A1c targets should be individualized based on duration of diabetes, age, comorbid conditions, and other considerations. This assay result is consistent with an increased risk of diabetes. Currently, no consensus exists regarding use of hemoglobin A1c for diagnosis of diabetes for children. Blood Blood / Unknown 01/21/2024 9 :45 AM EDT 01/21/2024 9:46 AM EDT Narrative [facility] - 01/22/2024 5:58 AM EDT FASTING:YES Petra Hernandez NP LAB - BLOOD DRAW Edited Resu lt - Final [employer] [address] [place] [id number], [employer] [place] [employer] [address] [place] [phone] from Last 3 Months or Most Recently Relevant to Health Maintenance Insurance [facility] Member Subscriber Plan / Payer (Ef fective 2023-Present) Name:Fatou rivera Relation to Subscriber:Self Name:Fatou rivera Payer ID:[id number] Group ID:Not on file Type:Indemnity Address: [address] [facility] [place] [address] Care Teams Produce Associate Relationship Specialty Start Date End Date Petra Hernandez NP [address] [place] [address] PCP - General Internal Medicine 08/03/23
--- OUTSIDE RECORDS SUMMARY | 2024-10-22 12:50 | XMS_ITS | Patient Health Record ---
Author Organization [facility] guillermo [place] Address [address] [place] [address] Care Team Providers Care Reception Centre Manager Name Role Phone Petra De La O Primary Care Provider Unavailab Mark Smith Unavailable [phone] Allergies Allergen (clinical drug ingredient) Drug/Non Drug Allergy documented on EMR Reaction Allergy Type Onset Date Status Substance with sulfonamide structure and antibacterial mechanism of action (substance) Sulfa Antibiotics Unknown Drug Allergy Active Reason For Referral No Information Medications Medication SIG (Take, Route, Frequency, Duration) Notes Start Date End Date Status Calcium Citrate 200 MG as directed Orally Active Neosporin 500-59248 UNIT/GM 1 application as needed Externally Once a day for 7 days 11/15/2023 Active Alendronate Sodium 70 MG 1 tablet 30 min utes before the first food, beverage or medicine of the day with plain water Orally for 30 day(s) Active Ammonium Lactate 12 % 1 application to affected area Externally to feet Twice a day for 30 days Active Vitamin D3 Active Voltaren Active Torsemide Active Rasagiline Mesylate Active Pramipexole Dihydrochloride Active Omeprazole Active Mapap Extra Strength Active Lisinopril Active Gabapentin Not-Takin g Carbidopa-Levodopa A ctive Orthopedic Extra Depth Shoes With Custom Heat Molded Multidensity Innersoles 1 Pair shoes with 3 Pair custom heat molded innersoles Wear Daily for 365 days 07/10/2024 Active Immunizations Vaccine Route Administration Date Status Comme nts COVID-19 Cr & Cr/Mala Unknown 09/26/2021 R efused Social History Tobacco Use: Social History Observation Description Date Details (start date - stop date) Never Smoker NA - NA Alcohol Screen Question Answer Notes Did you have a drink containing alcohol in the p ast year? No Points 0 Interpretation Negative Tobacco use other than smoking: Question Answer Notes Are you an other tobacco user? No Tobacco Control (Standard) Question Answer Notes Tobacco use: Nonsmoker Additional Findings: Tobacco non-user Current no nsmoker Problems Problem Type SNOMED Code ICD Code Onset Dates Problem Status W/U Status Risk Notes Problem Acquired hammer toe of right foot (2831433306143704) Other hammer toe(s) (acquired), right foot (M20.41) Active confirmed Problem Acquired hammer toe of left foot (2150437792532249) Other hammer toe(s) (acquired), left foot (M20.42) Active confirmed Problem Gout (83738257) Gout of left teresa t (M10.9) Active confirmed Problem 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 (838451247) 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 Problem Intermittent claudication (96388162) Intermittent claudication (I73.9) Active confirmed Problem Atherosclerosis of la posta arteries of the extremities (304904171314825) Atherosclerosis of la posta artery of both lower extremities, with unspecified presence of clinical manifestation (I70.203) Active confirmed Vital Signs Blood pressure diastolic 60 mm Hg 07/10/2024 Height 4 ft 11 in in 10/13/2024 Blood pressure systolic 150 mm Hg 07/10/2024 Weight 150 lbs 10/13/2024 BMI 30.29 kg/m2 10/13/2024 Procedures Procedure Date Ordered Date Performed Result Body Sit e 90031-AIQOPDY NAIL, 6 OR MORE 11/15/2023 N/A 62850-LAJYOJC SKIN/TISSUE 11/15/2023 N/A 43175-FAGS SKIN LESIONS, OVER 4 11/15/2023 N/A 14011-DOZZGLU NAIL, 6 OR MORE 01/28/2024 N/A 32495- Debride <25 sq cm 01/28/2024 N/A 93227-ISJG SKIN LESIONS, OVER 4 01/28/2024 N/A 56114-PFRMRBU NAIL, 6 OR MORE 04/07/2024 N/A 35619-EWWF SKIN LESIONS, OVER 4 04/07/2024 N/A 54536-RBWLUFB NAIL, 6 OR MORE 07/10/2024 N/A 50139-KAZX SKIN LESIONS, OVER 4 07/10/2024 N/A 50738-PQMHFDR NAIL, 6 OR MORE 10/13/2024 N/A 95125-WKPF SKIN LESIONS, OVER 4 10/13/2024 N/A Encounters Encounter Location Date Provider Diagnosis [address] [phone] 11/15/2023 Mark Azar Atherosclerosis of la posta artery of both lower extremities, with unspecified presence of clinical manifestation I70.203 ; Onychomycosis B35.1 ; Pain of toe of right foot M79.674 ; Pain of toe of left foot M79.675 ; Chronic gout involving toe with tophus M1A.9XX1 ; Pain in joint involving left ankle and foot M25.572 ; Gout of left foot M10.9 and Ischemic ulcer of left foot with fat layer exposed L97.[address] [address] 01/28/2024 Mark Azar Atherosclerosis of la posta artery of both lower extremities, with unspecified presence of clinical manifestation I70.203 ; Onychomycosis B35.1 ; Pain of toe of right foot M79.674 ; Pain of toe of left foot M79.675 ; Chronic gout involving toe with tophus M1A.9XX1 ; Pain in joint involving left ankle and foot M25.572 ; Gout of left foot M10.9 and Skin ulcer of toe of left foot, limited to breakdown of skin L97.[address] [address] 04/07/2024 Mark Azar Atherosclerosis of la posta artery of both lower extremities, with unspecified presence of clinical manifestation I70.203 ; Onychomycosis B35.1 ; Pain of toe of right foot M79.674 ; Pain of toe of left foot M79.675 and Skin ulcer of toe of left foot, limited to breakdown of skin L97.[address] [address] 07/10/2024 Mark Azar Atherosclerosis of la posta artery of both lower extremities, with unspecified presence of clinical manifestation I70.203 ; Onychomycosis B35.1 ; Pain of toe of right foot M79.674 ; Pain of toe of left foot M79.675 ; Other hammer toe(s) (acquired), right foot M20.41 and Other hammer toe(s) (acquired), left foot M20.42 [facility] [place] [address] [address] 10/13/2024 Mark Azar Atherosclerosis of la posta artery of both lower extremities, with unspecified presence of clinical manifestation I70.203 ; Onychomycosis B35.1 ; Pain of toe of right foot M79.674 and Pain of toe of left foot M79.675 Assessments Encounter Date Diagnosis (ICD Code) Assessment Notes Treatment Notes Treatment Clinical Notes Section Notes 11/15/2023 Onychomycosis (ICD-10 - B35.1) 11/15/2023 Atherosclerosis of la posta artery of both lower extremities, with unspecified presence of clinical manifestation (ICD-10 - I70.203) 01/28/2024 Onychomycosis (ICD-10 - B35.1) 01/28/2024 Atherosclerosis of la posta artery of both lower extremities, with unspecified presence of clinical manifestation (ICD-10 - I70.203) 04/07/2024 Onychomycosis (ICD-10 - B35.1) 04/07/2024 Atherosclerosis of la posta artery of both lower extremities, with unspecified presence of clinical manifestation (ICD-10 - I70.203) 07/10/2024 Onychomycosis (ICD-10 - B35.1) 07/10/2024 Atherosclerosis of la posta artery of both lower extremities, with unspecified presence of clinical manifestation (ICD-10 - I70.203) 10/13/2024 Onychomycosis (ICD-10 - B35.1) 10/13/2024 Atherosclerosis of la posta artery of both lower extremities, with unspecified presence of clinical manifestation (ICD-10 - I70.203) 07/10/2024 Pain of toe of right foot (ICD-10 - M79.674) 10/13/2024 Pain of toe of right foot (ICD-10 - M79.674) 04/07/2024 Pain of toe of right foot (ICD-10 - M79.674) 01/28/2024 Pain of toe of right foot (ICD-10 - M79.674) 11/15/2023 Pain of toe of right foot (ICD-10 - M79.674) 11/15/2023 Pain of toe of left foot (ICD-10 - M79.675) 01/28/2024 Pain of toe of left foot (ICD-10 - M79.675) 04/07/2024 Pain of toe of left foot (ICD-10 - M79.675) 07/10/2024 Pain of toe of left foot (ICD-10 - M79.675) 10/13/2024 Pain of toe of left foot (ICD-10 - M79.675) 04/07/2024 Skin ulcer of toe of left foot, limited to breakdown of skin (ICD-10 - L97.521) 01/28/2024 Chronic gout involving toe with tophus (ICD-10 - M1A.9XX1) 11/15/2023 Chronic gout involving toe with tophus (ICD-10 - M1A.9XX1) 11/15/2023 Pain in joint involving left ankle and foot (ICD-10 - M25.572) 01/28/2024 Pain in joint involving left ankle and foot (ICD-10 - M25.572) 07/10/2024 Other hammer toe(s) (acquired), right foot (ICD-10 - M20.41) 07/10/2024 Other hammer toe(s) (acquired), left foot (ICD-10 - M20.42) 01/28/2024 Gout of left foot (ICD-10 - M10.9) 11/15/2023 Gout of left foot (ICD-10 - M10.9) Rx drug management (4) Patient Educated with: GOUT.pdf (GOUT.pdf) Patient Educated with: LOW PURINE DIET.pdf (LOW PURINE DIET.pdf) 11/15/2023 Ischemic ulcer of left foot with fat layer exposed (ICD-10 - L97.522) Response to treatment,Josefina pplicable Patient Educated with: WOUND CARE INSTRUCTIONS. pdf (WOUND CARE INSTRUCTIONS. pdf) 01/28/2024 Skin ulcer of toe of left foot, limited to breakdown of skin (ICD-10 - L97.521) Patient Educated with: WOUND CARE INSTRUCTIONS. pdf (WOUND CARE INSTRUCTIONS. pdf) 11/15/2023 Other 01/28/2024 Other 04/07/2024 Other 07/10/2024 Other 10/13/2024 Other Plan Of Treatment Pending Test Test Name Order Date 08277-HHDSYDN NAIL, 6 OR MORE 10/25/2020 01645-GNPCCRW NAIL, 6 OR MORE 01/12/2021 69946-RQWQYQE NAIL, 6 OR MORE 04/11/2021 13835-VSMZLHS NAIL, 6 OR MORE 07/18/2021 84059-CGXTMZG NAIL, 6 OR MORE 09/26/2021 24648-JLOAFAI NAIL, 6 OR MORE 11/28/2021 86361-WRARWDR NAIL, 6 OR MORE 02/06/2022 89162-KAYMMUL NAIL, 6 OR MORE 04/27/2022 18166-MYCIZJC NAIL, 6 OR MORE 07/20/2022 30001-FCLYBGB NAIL, 6 OR MORE 09/28/2022 69465-QTZMFXY NAIL, 6 OR MORE 12/28/2022 04077-QXXAXHD NAIL, 6 OR MORE 03/22/2023 35868-RZZPCYJ NAIL, 6 OR MORE 06/21/2023 49580-QGFVUBA NAIL, 6 OR MORE 11/15/2023 15812-KLPEYCO NAIL, 6 OR MORE 01/28/2024 60789-PXOCAAF NAIL, 6 OR MORE 04/07/2024 94423-KXPFMTL NAIL, 6 OR MORE 07/10/2024 64155-TZUZSPU NAIL, 6 OR MORE 10/13/2024 61778- Debride <25 sq cm 01/28/2024 68998-HABYGRD SKIN/TISSUE 11/15/2023 78995-PUTY SKIN LESIONS, OVER 4 04/07/20 24 66269-FYQY SKIN LESIONS, OVER 4 01/28/20 24 92761-PATU SKIN LESIONS, OVER 4 11/15/19 24 15722-RHYM SKIN LESIONS, OVER 4 10/14/19 25 99194-XWPQ SKIN LESIONS, OVER 4 07/10/19 52045-HESJ SKIN LESIONS, OVER 4 06/21/20 23 48218-CDPM SKIN LESIONS, OVER 4 03/22/20 23 26006-WLBK SKIN LESIONS, OVER 4 06/22/20 23 82240-HBNS SKIN LESIONS, OVER 4 09/29/19 78626-KJWV SKIN LESIONS, OVER 4 07/20/19 Next Appt Details Provider Name:Mark Azar , 01/14/2025 11:30:00 AM, [address], [address], [place], [address], Insurance Providers Payer Name Payer Address Payer Phone Subscriber Number Group Number Insured Name Patient Relationship to Insured Coverage Start Date Coverage End Date [facility] [employer] Claims [address] [place] [address] [id number] Fatou Dennison Self - patient is the insured Medical (General) History Medical History History ICD Code Arthritis Back pain Cataracts chest pain Hypertension, benign Osteoporosis Parkinsons disease Vitamin D deficiency Surgical History Surgery Date(Month/Year) Hospitalization History Reason Date(Month/Year) [facility] - Fall, then rehab facility 07/31/23 [facility]- chest pain, high blood pressure 02/07
--- OUTSIDE RECORDS SUMMARY | 2024-10-22 12:50 | XMS_ITS | Clinical Summary ---
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 05/08/20 24 Active calcium citrate (CALCITRATE) 950 mg (200 mg elemental calcium) tablet Take 1 tablet (950 mg total) by mouth 1 (one) time each day. 05/08/20 24 Active carbidopa-levo dopa (SINEMET) 25-100 mg per tablet Take 1 tablet by mouth 3 (three) times a day. Active cholecalcifero l (VITAMIN D-3) 50 mcg (2,000 unit) tablet Take by mouth. Activ e diclofenac (VOLTAREN) 1 % topical gel Sig - Route: Apply 1 Tube topically as needed. 04/08/20 24 Active famotidine (PEPCID) 20 mg tablet Take 1 tablet (20 mg total) by mouth 2 (two) times a day. 05/08/20 24 Active gabapentin (NEURONTIN) 100 mg capsule Take 1 capsule (100 mg total) by mouth 1 (one) time each day. 05/08/20 24 Active latanoprost (XALATAN) 0.005 % ophthalmic solution Sig - Route: apply to the eye. Both eyes 05/08/20 Active lisinopriL (PRINIVIL,ZEST RIL) 5 mg tablet Take 1 tablet (5 mg total) by mouth 1 (one) time each day. 05/08/20 Active meclizine (ANTIVERT) 25 mg tablet Chew 1 tablet (25 mg total) if needed. 04/08/20 Active mirabegron (MYRBETRIQ) 25 mg 24 hr tablet Mirabegron ER 25 MG TABLET SR 24 HR-Sig - Route: Take 25 mg by mouth. Active pramipexole (MIRAPEX) 0.5 mg tablet Take 1 tablet (0.5 mg total) by mouth 3 (three) times a day. Active rasagiline (AZILECT) 1 mg tablet Take by mouth. 05/08/20 Active torsemide (DEMADEX) 5 mg tablet Take 1 tablet (5 mg total) by mouth 1 (one) time each day. 05/08/20 Active methIMAzole (TAPAZOLE) 5 mg tablet TAKE ONE TABLET BY MOUTH EVERY DAY 30 tablet 6 10/18/19 25 Active methIMAzole (TAPAZOLE) 5 mg tablet Sig - Route: Take 1 Tablet by mouth daily for 90 days 30 tablet 2 07/31/19 25 025 Discontinued Encounters Date Type Department Care Team Description 08/05/2024 10:00 AM EST Office Visit Endocrinology [address] [phone] Neli Dexter PA Subclinical hyperthyroidism (Primary Dx); Multiple thyroid nodules from Last 3 Months Social History Tobacco Use Types Packs/Day Years Used Date Smoking Tobacco: Never Smokeless Tobacco: Never Tobacco Cessation:Counseling Given: Not Answered Alcohol Use Standard Drinks/Week Comments Not Currently 0 (1 standard drink = 0.6 oz pur e alcohol) Comments Unknown Sex and Gender Information Value Date Recorded Sex Assigned at Not on file Legal Sex Female 9:17 PM EST Gender Identity Not on file Sexual Orientation Not on file Obstetrics History Last Filed Vital Signs Vital Sign Reading Time Taken Comments Blood Pressure 111/60 08/05/2024 10:11 AM EST Pulse 80 08/05/2024 10:11 AM EST Temperature 36.2 ??C (97.2 ??F) 08/05/2024 10:[address] Respiratory Rate - - Oxygen Saturation 97% 08/05/2024 10:11 AM EST Inhaled Oxygen Concentration - - Weight 67.9 kg (149 lb 9.6 oz) 08/05/2024 10:11 AM EST Height 152.4 cm (5') 08/05/2024 10:11 AM EST Body Mass Index 29.22 08/05/2024 10:11 AM EST Plan of Treatment Upcoming Encounters Date Type Department Care Team (Late st Contact Info) Description 11/03/2024 10:00 AM EDT Appointment Radiology Department - [address] [phone] 11/20/2024 9:40 AM EDT Office Visit Endocrinology - [address] [phone] Neli Dexter PA [address] [place], [place] Health Maintenance Due Date Last Done Comments Zoster Vaccines (1 of 2) 12/16/1993 DTaP,Tdap,and Td Vaccines (2 - Td or Tdap) 07/09/2008 07/09/1998 Pneumococcal Vaccine: 50+ Years (2 of 2 - PCV) 12/15/2014 12/15/2013, 06/12/2005 RSV Immunization Adult Patients (1 - 1-dose 75+ series) 12/16/2018 Depression Screening 08/07/2023 Falls Risk Assessment 08/07/2023 Osteoporosis Screening (Bone Density Screening) 08/07/2023 02/10/2013 Social Influencers of Health Screening 08/07/2023 COVID-19 Vaccine (1 - 2023-2 5 season) 2024 Hypertension/CHF/CAD Annual BMP Blood Test 08/05/2024 06/06/2012 Influenza Vaccine (Season Ended) 2025 06/19/2017, 07/09/2008 Cholesterol Screening (Lipid Panel) 01/20/2029 01/21/2024, 06/07/2012 HIB Vaccines Aged Out No longer eligi ble based on patient's age to complete this topic HPV Vaccines Aged Out No longer eligi ble based on patient's age to complete this topic Hepatitis A Vaccines Aged Out No long er eligible based on patient's age to complete this topic Hepatitis B Vaccines Aged Out No long er eligible based on patient's age to complete this topic IPV Vaccines Aged Out No longer eligi ble based on patient's age to complete this topic MMR Vaccines Aged Out No longer eligi ble based on patient's age to complete this topic Meningococcal ACWY Vaccine Aged Out N o longer eligible based on patient's age to complete this topic Meningococcal B Vaccine Aged Out No l onger eligible based on patient's age to complete this topic RSV Immunization Patients Under 20 months Aged Out No longer eligible b ased on patient's age to complete this topic Varicella Vaccines Aged Out No longer eligible based on patient's age to complete this topic Procedures Procedure Name Priority Date/Time Associated Diagnosis Comments THYROID STIMULATING HORMONE WITH REFLEX TO FREE T4 AND FREE T3 Routine 08/05/2024 11:14 AM EST Multiple thyroid nodules WHITE BLOOD COUNT Routine 08/05/2024 11: 14 AM EST Multiple thyroid nodules HEPATIC FUNCTION PANEL Routine 08/05/2024 11:14 AM EST Multiple thyroid nodules from Last 3 Months Results * Thyroid stimulating hormone with reflex to free t4 and free t3 (08/05/2024 11:14 AM EST) TSH 1.28 0.40 - 4.00 mcIU/mL LAB CHEMISTRY METHOD 08/05/2024 4:12 PM EST [facility] Blood Venous blood specimen / Unknown Venipuncture / Unknown 08/05/2024 11:14 AM EST 08/05/2024 11:14 AM EST us Neli DIAZ LAB BLOOD ORDERABLES Final Resul t [facility] [address] [place] [address], [place] [phone] * White blood count (08/05/2024 11:14 AM EST) [facility] WBC 5.9 4.8 - 10.8 K/mcL LAB HEMETOLOGY METHOD 08/05/2024 3:16 PM [facility] Blood Venous blood specimen / Unknown Venipuncture / Unknown 08/05/2024 11:14 AM EST 08/05/2024 11:14 AM EST us Nlei DIAZ LAB BLOOD ORDERABLES Final Resul t [facility] [address] [place] [address], [place] [phone] * Hepatic function panel (08/05/2024 11:14 AM EST) [facility] Total Protein 7.5 6.0 - 8.0 g/dL LAB CHEMISTRY METHOD 08/05/2024 4:06 PM [facility] Albumin 3.9 3.2 - 5.0 g/dL LAB CHEMISTRY METHOD 08/05/2024 4:06 PM [facility] Total Bilirubin 0.5 0.0 - 1.4 mg/dL LAB CHEMISTRY METHOD 08/05/2024 4:06 PM [facility] Bilirubin, Direct 0.1 0.0 - 0.3 mg/dL LAB CHEMISTRY METHOD 08/05/2024 4:06 PM [facility] Bilirubin, Indirect 0.4 0.0 - 1.1 mg/dL LAB CHEMISTRY METHOD 08/05/2024 4:06 PM [facility] ALT (SGPT) 18 10 - 60 unit/L LAB CHEMISTRY METHOD 08/05/2024 4:06 PM [facility] AST (SGOT) 21 10 - 42 unit/L LAB CHEMISTRY METHOD 08/05/2024 4:06 PM [facility] Alkaline Phosphatase 85 42 - 121 unit/L LAB CHEMISTRY METHOD 08/05/2024 4:06 PM [facility] Blood Venous blood specimen / Unknown Venipuncture / Unknown 08/05/2024 11:14 AM EST 08/05/2024 11:14 AM EST us Neli DIAZ LAB BLOOD ORDERABLES Final Resul t [facility] [address] [place] [address], from Last 3 Months Insurance * Guarantor: Fatou Hardin Account Type Relation to Patient Date of Phone Billing Address Personal/Family Self 1945 [address] [facility] [address] [place] [address] [facility] [place] MEDICAID [place] [id number] Care Teams Commodities Broker Relationship Specialty Start Date End Date Petra Hernandez [address] [place] [address] PCP - General 03/05/24
--- OUTSIDE RECORDS SUMMARY | 2024-10-22 12:50 | XMS_ITS ---
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 Medications Medication SIG (Take, Route, Frequency, Duration) Notes Start Date End Date Status Rasagiline Mesylate Active Pramipexole Dihydrochloride Active Omeprazole Active Mapap Extra Strength Active Lisinopril Active Calcium Citrate 200 MG as directed [...] Wear Daily for 365 days 07/10/2024 Active Neosporin 500-65977 UNIT/GM 1 application as needed Externally Once a day for 7 days 11/15/2023 Active Ammonium Lactate 12 % 1 application to affected area Externally to feet Twice a day for 30 days Active Vitamin D3 Active Voltaren Active Torsemide Active Social History Tobacco Use: Social History Observation [...] Additional Findings: Tobacco non-user Current no nsmoker Vital Signs Height 4 ft 11 in in 10/13/2024 Weight 150 lbs 10/13/2024 BMI 30.29 kg/m2 10/13/2024 Procedures Procedure Date Ordered Date Performed Result Body Sit e 54059-WWTUYGX NAIL, 6 OR MORE 10/13/2024 N/A 20060-LJQG SKIN LESIONS, OVER 4 10/13/2024 N/A Encounters Encounter Location Date Provider Diagnosis [facility] [place] [address] [facility] [address] [place] [id number] 10/13/2024 Mark Azar Atherosclerosis of [place] artery of both lower extremities, with unspecified presence of clinical manifestation I70.203 ; Onychomycosis B35.1 ; Pain of toe of right foot M79.674 and Pain of toe of left foot M79.675 Assessments Encounter Date Diagnosis (ICD Code) Assessment Notes Treatment Notes Treatment Clinical Notes Section Notes 10/13/2024 Atherosclerosis of [place] artery of both lower extremities, with unspecified presence of clinical manifestation (ICD-10 - I70.203) 10/13/2024 Onychomycosis (ICD-10 - B35.1) 10/13/2024 Pain of toe of right foot (ICD-10 - M79.674) 10/13/2024 Pain of toe of left foot (ICD-10 - M79.675) 10/13/2024 Other Plan Of Treatment Pending Test Test Name Order Date 09271-UOWYPZS NAIL, 6 OR MORE 10/13/2024 13043-MVWG SKIN LESIONS, OVER 4 10/14/19 25 Next Appt Details Follow Up: 2 Months, Reason: Provider Name:Mark Azar , 01/14/2025 11:30:00 AM, [address] [facility], [address], [place], [address], Procedure Notes * Category Sub-Category Detail Notes Debride Nail 6-10 Nail debridement Due to the cl inical pathology outlined in the exam findings, performance of this nail treatment is medically necessary as its management by an unskilled/untrained nonprofessional would put this patients foot and overall health at risk. Therefore, debridement to affected nail(s), as described in exam ( TA, T1, T2, T3, T4, T5, T6, T7, T8, T9 ), was performed exclusively by the physician of record to reduce/remove overall nail length, girth, thickness, subungual debris, and necrotic tissue, by manual and/or electrical means through the use of a nail nipper and/or dremel-type air grinder, to a more viable healthy nail plate or bed tissue 6-10 nails in total. Silver nitrate was used for any petechial bleeding as necessary. Definitive antifungal treatment options, both pharmaceutical and surgical, have been reviewed and discussed with the patient. The patient solely prefers the use of intermittent/as needed professional debridement services for their nail condition and understands the need for additional periodic treatments to maintain effectiveness in symptomatic relief - 27785 Keratoma Treatment Parring or Cutting o f Benign Hyperkeratotic Lesion(s) (-57) More than 4 Lesions - Due to the at risk nature of the patients medical condition as documented in the exam findings, performance of this keratoderma treatment is medically necessary as its management by an unskilled/untrained nonprofessional would put this patients foot and overall health at risk. Therefore, the benign hyperkeratotic lesions, ( 14) in total, locations as stated and described in the exam ( Medial plantar, IPJ, TA, Medial plantar, IPJ, T5, Plantar, T6, Plantar, T8, SUB MTH (s), 1, B/L , SUB MTH (s), 2, B/L , SUB MTH (s), 3, B/L , SUB MTH (s), 5, B/L ,Plantar, Heel(s), B/L ), were pared, and/or cut utilizing a sterile 15 blade, tissue nippers, and/or power dremel instrumentation by the physician of record - 17597, Q8 Progress Notes * Andrews JACQUESaDOB:[birth year] (78 yo F)Acc No.[id number]:10/13/2024 Progress Note Patient:?Andrews JACQUES Provider:?Mark Azar DPM :1945???Age:78 Y???Sex:Female D ate:10/13/2024 Address:[address] [facility] Pcp:Petra De La O Subjective: * Chief Complaints: * ???At Risk FootcarePainful N ail(s) aggrevated by shoes and causing difficulty standing/walking. * HPI: ???At Risk footcare:?Pt States Last PCP Visit:?Date?09/29/2024 * ROS:?General/Constitutional:?Nausea?denies.?Vomiting?denies.?Hunger Thirst?denies.?Loss appetite?denies.?Chills?denies.?Fatigue?denies.?Fever?denies.?Night Sweats?denies.?Unexplained weight loss?denies.?Unexplained [...] trouble?admits,?admits.?Confusion?denies,?denies.?Fainting/blackouts?denies,?den ies.?Tingling?denies,?denies.?Tremors?denies,?denies.? * Medical History:? * Surgical History:?No Surgica l History documented. * Hospitalization/Major Diagno stic Procedure:?[facility]- chest pain, high blood pressure 02/2020[facility] - Fall, then rehab facility 07/31/23 * Family History:?Mother: dece ased.?Father: .? * Social History:?Tobacco Use:?Tobacco use other than smoking?Are you an other tobacco user??No ?Tobacco Control (Standard)?Tobacco use:?Nonsmoker ?Additional Findings: Tobacco non-user?Current nonsmoker ???Drugs/Alcohol:?Drugs?Have you used drugs other than those for medical reasons in the past 12 months??No ?Alcohol Screen?Did you have a drink containing alcohol in the past year??No ?Points?0 ?Interpretation?Negative ???Miscellaneous:?Caffeine: no. ?Children: no. ?Exercise: yes, exercise. ?Marital status: . 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 * Medications:?TakingAlendrona te Sodium 70 MG [...] Externally to feet Twice a day Neosporin 500-46365 UNIT/GM Ointment 1 application as needed Externally Once a day Orthopedic Extra Depth Shoes With Custom Heat Molded Multidensity Innersoles 1 Pair shoes with 3 Pair custom heat molded innersoles Wear Daily Taking Alendronate Sodium 70 MG Tablet 1 [...] to feet Twice a day Taking Neosporin 500-59380 UNIT/GM Ointment 1 application as needed Externally Once a day Taking Orthopedic Extra Depth Shoes With Custom Heat Molded Multidensity Innersoles 1 Pair shoes with 3 Pair custom heat molded innersoles Wear Daily Not-Taking/PRNGabapentin Medication List reviewed and reconciled with the patientNot-Taking/PRN Gabapentin Medication List reviewed and reconciled with the patient * Allergies:?Sulfa Antibiotics yes[Allergies Verified] Objective: * Vitals:?Ht: 4 ft 11 in, Wt: 150, BMI: 30.29, Shoe size: 6.5, Wt-k.04 kg. * Examination: ???Vascular: ?DP PULSES (B):? [...] crumbly malodorous subungual debris, with pain on palpation,?TA, T1, T2, T3, T4, T5, T6, T7, T8, T9.?Dermatologic: ?SKIN FINDINGS:? Skin exam reveals Keratotic lesion(s) located at, Medial plantar, IPJ, TA, Medial plantar, IPJ, T5, Plantar, T6, Plantar, T8, SUB MTH (s), 1, B/L , SUB MTH (s), 2, B/L , SUB MTH (s), 3, B/L , SUB MTH (s), 5, B/L ,Plantar, Heel(s), B/L .? Assessment: * Assessment: 1.?Onychomycosis - B35.1???2 .?Atherosclerosis of [place] artery of both lower extremities, with unspecified presence of clinical manifestation - I70.203 (Primary)???Specify :Q8???3.?Pain of toe of right foot - M79.674???4.?Pain of toe of left foot - M79.675??? Plan: * Treatment: 2.?Onychomycosis?Procedure: 40588-CLHPSYT NAIL, 6 OR MORE * Procedures:?Debride Nail 6-10:?Nail debridement?Due to the clinical pathology outlined in the exam findings, performance of this nail treatment is medically necessary as its management by an unskilled/untrained nonprofessional would put this patients foot and overall health at risk. Therefore, debridement to affected nail(s), as described in exam (?TA, T1, T2, T3, T4, T5, T6, T7, T8, T9?), was performed exclusively by the physician of record to reduce/remove overall nail length, girth, thickness, subungual debris, and necrotic tissue, by manual and/or electrical means through the use of a nail nipper and/or dremel-type air grinder, to a more viable healthy nail plate or bed tissue 6- 10 nails in total. Silver nitrate was used for any petechial bleeding as necessary. Definitive antifungal treatment options, both pharmaceutical and surgical, have been reviewed and discussed with the patient. The patient solely prefers the use of intermittent/as needed professional debridement services for their nail condition and understands the need for additional periodic treatments to maintain effectiveness in symptomatic relief - 61616.?Keratoma Treatment:?Parring or Cutting of Benign Hyperkeratotic Lesion(s)?(-57) More than 4 Lesions - Due to the at risk nature of the patients medical condition as documented in the exam findings, performance of this keratoderma treatment is medically necessary as its management by an unskilled/untrained nonprofessional would put this patients foot and overall health at risk. Therefore, the benign hyperkeratotic lesions, ( 14) in total, locations as stated and described in the exam (?Medial plantar,?IPJ,?TA,?Medial plantar,?IPJ,?T5,?Plantar,?T6,?Plantar,?T8,?SUB MTH (s),?1,?B/L?,?SUB MTH (s),?2,?B/L?,?SUB MTH (s),?3,?B/L?,?SUB MTH (s),?5,?B/L?,Plantar,?Heel(s),?B/L?), were pared, and/or cut utilizing a sterile 15 blade, tissue nippers, and/or power dremel instrumentation by the physician of record - 44965, Q8.? * Procedure Codes:?52559 DEBRI DE NAIL, 6 OR MORE, Modifiers: XS 66867 TRIM SKIN LESIONS, OVER 4, Modifiers: XS , Q8 * Follow Up:?2 Months * Images: * Sign off status: Completed true * Provider:?Mark Azar DPM Date:?2024 Generated for Jesus harden/Claudia/eTransmitting on:?10/22/2024 12:49 PM EDT History and Physical Notes * HPI (History of Present Illness) Category Sub-Category Detail Notes Category Not es At Risk footcare Pt States Last PCP Visit: Date: 5 Examination Category Sub-Category Detail Notes Category Not es Dermatologic SKIN FINDINGS: Skin exam reveal s Keratotic lesion(s) located at, Medial plantar, IPJ, TA, Medial plantar, IPJ, T5, Plantar, T6, Plantar, T8, SUB MTH (s), 1, B/L , SUB MTH (s), 2, B/L , SUB MTH (s), 3, B/L , SUB MTH (s), 5, B/L ,Plantar, Heel(s), B/L Vascular DP PULSES (B): 0/4, B/L PT [...] malodorous subungual debris, with pain on palpation, TA, T1, T2, T3, T4, T5, T6, T7, T8, T9
--- OUTSIDE RECORDS SUMMARY | 2024-10-22 12:50 | XMS_ITS ---
Author Organization [facility] Address [address] [place] [address] Care Team Providers Care Puncher And Fastener Name Role Phone Petra De La O Primary Care Provider UnavailMark Wylie Unavailable [phone] Allergies Allergen (clinical drug ingredient) Drug/Non Drug Allergy documented on EMR Reaction Allergy Type Onset Date Status Substance with sulfonamide structure and antibacterial mechanism of action (substance) Sulfa Antibiotics Unknown Drug Allergy Active REASON FOR VISIT At Risk Footcare, Painful Nail(s) aggrevated by shoes and causing difficulty standing/walking., ToeIrritation Medications Medication SIG (Take, Route, Frequency, Duration) Notes Start Date End Date Status Calcium Citrate 200 MG as directed Orally Active Carbidopa-Levodopa A ctive Gabapentin Not-Takin g Alendronate Sodium 70 MG 1 tablet 30 min utes before the first food, beverage or medicine of the day with plain water Orally for 30 day(s) Active Neosporin 500-72920 UNIT/GM 1 application as needed Externally Once a day for 7 days 11/15/2023 Active Orthopedic Extra Depth Shoes With Custom Heat Molded Multidensity Innersoles 1 Pair shoes with 3 Pair custom heat molded innersoles Wear Daily for 365 days 07/10/2024 Active Voltaren Active Vitamin D3 Active Ammonium Lactate 12 % 1 application to affected area Externally to feet Twice a day for 30 days Active Torsemide Active Lisinopril Active Mapap Extra Strength Active Omeprazole Active Pramipexole Dihydrochloride Active Rasagiline Mesylate Active Social History Tobacco Use: Social History Observation Description Date Details (start date - stop date) Never Smoker NA - NA Tobacco Use/Smoking Question Answer Notes Are you a: nonsmoker Additional Findings: Tobacco Non-User Current no n-smoker Alcohol Screen Question Answer Notes Did you have a drink containing alcohol in the p ast year? No Points 0 Interpretation Negative Tobacco use other than smoking: Question Answer Notes Are you an other tobacco user? No Problems Problem Type SNOMED Code ICD Code Onset Dates Problem Status W/U Status Risk Notes Problem Acquired hammer toe of right foot (7772306533400 105) Other hammer toe(s) (acquired), right foot (M20.41) Active confirmed Problem Acquired hammer toe of left foot (9052213570787 103) Other hammer toe(s) (acquired), left foot (M20.42) Active confirmed Vital Signs Height 4 ft 11 in in 07/10/2024 Weight 150 lbs 07/10/2024 BMI 30.29 kg/m2 07/10/2024 Blood pressure systolic 150 mm Hg 07/10/19 25 Blood pressure diastolic 60 mm Hg 025 Procedures Procedure Date Ordered Date Performed Result Body Sit e 08776-YBJIWBP NAIL, 6 OR MORE 07/10/2024 N/A 35834-EIOZ SKIN LESIONS, OVER 4 07/10/2024 N/A Encounters Encounter Location Date Provider Diagnosis [facility] [address] [address] 07/10/2024 Mark Azar Atherosclerosis of [place] artery of both lower extremities, with unspecified presence of clinical manifestation I70.203 ; Onychomycosis B35.1 ; Pain of toe of right foot M79.674 ; Pain of toe of left foot M79.675 ; Other hammer toe(s) (acquired), right foot M20.41 and Other hammer toe(s) (acquired), left foot M20.42 Assessments Encounter Date Diagnosis (ICD Code) Assessment Notes Treatment Notes Treatment Clinical Notes Section Notes 07/10/2024 Atherosclerosis of [place] artery of both lower extremities, with unspecified presence of clinical manifestation (ICD-10 - I70.203) 07/10/2024 Onychomycosis (ICD-10 - B35.1) 07/10/2024 Pain of toe of right foot (ICD-10 - M79.674) 07/10/2024 Pain of toe of left foot (ICD-10 - M79.675) 07/10/2024 Other hammer toe(s) (acquired), right foot (ICD-10 - M20.41) 07/10/2024 Other hammer toe(s) (acquired), left foot (ICD-10 - M20.42) 07/10/2024 Other Plan Of Treatment Medication Medication Name Sig Start Date Stop Date Notes Orthopedic Extra Depth Shoes With Custom Heat Molded Multidensity Innersoles 1 Pair shoes with 3 Pair custom heat molded innersoles Wear Daily for 365 days 07/10/2024 Pending Test Test Name Order Date 29959-FQIJFMW NAIL, 6 OR MORE 07/10/2024 51335-THHU SKIN LESIONS, OVER 4 07/10/19 25 Next Appt Details Follow Up: 2 Months, Reason: Provider Name:Mark Azar , 01/14/2025 11:30:00 AM, [address] , [address], [place], [address], Procedure Notes * Category Sub-Category Detail Notes [...] T2, T3, T4, T5, T6, T7, T8, T9), was performed exclusively by the physician of record to reduce/remove overall nail length, girth, thickness, subungual debris, and necrotic tissue, by manual and/or electrical means through the use of a nail nipper and/or dremel-type radius grinder, to a more viable healthy nail [...] to maintain effectiveness in symptomatic relief - 25451 Keratoma Treatment Parring or Cutting o f [...] SUB MTH (s), 5, B/L ,Plantar, Heel(s), B/L), were pared, and/or cut utilizing a sterile 15 blade, tissue nippers, and/or power dremel instrumentation by the physician of record - 85129, Q8 Progress Notes * Andrews JACQUESaDOB:[birth year] (78 yo F)Acc No.[id number]:07/10/2024 Progress Note Patient:?SAWYER 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 * ROS:?General/Constitutional:?Nausea?denies.?Vomiting?denies.?Hunger Thirst?denies.?Loss appetite?denies.?Chills?denies.?Fatigue?denies.?Fever?denies.?Night Sweats?denies.?Unexplained weight loss?denies.?Unexplained [...] than smoking?Are you an other tobacco user??No ???Drugs/Alcohol:?Drugs?Have you used drugs other than those [...] Externally to feet Twice a day Neosporin 500-69756 UNIT/GM Ointment 1 application as needed Externally [...] to feet Twice a day Taking Neosporin 500-35941 UNIT/GM Ointment 1 application as needed Externally Once a day Not-Taking/PRNGabapentin Medication List reviewed and reconciled with the patientNot-Taking/PRN Gabapentin Medication List reviewed and reconciled with the patient * Allergies:?Sulfa Antibiotics yes[Allergies Verified] Objective: * Vitals:?Ht: 4 ft 11 in, Wt:1 50, BMI: 30.29, Shoe size:6.5, BP: 150/60 mm Hg, Wt- k.04 kg. * Examination: ???Vascular: ?DP PULSES (B):? [...] MTH (s), 5, B/L ,Plantar, Heel(s), B/L .?Orthopedic: ?MUSCLE STRENGTH:?5/5 all groups in a symmetrical fashion, B/L.?DIGITAL DEFORMITIES:?Digital contracture, PIPJ, 2-5 B/L, incompl-reducible to push-up test, no over, nor underlapping,?there is?evidence of shoe producing skin irritation.?FOOTWEAR:?worn, non-supportive, shoe gear properties exacerbate patients foot/toe deformity.?General Examination: ?GENERAL APPEARANCE:?Reveals a pleasant, alert, well nourished, well- developed, well hydrated individual, who demonstrates proper attention to hygiene/body habitus, and is in no acute distress, Pt accompanied by, Female, VASCULAR ULTRASOUND TECHNICIAN, who serves as, Inside Horticultural Specialty Grower/Gas Refrigerator Servicer, and/who is physically present in exam room at time of visit.?ORIENTED:?person, place, and time.?FOOT EXAM:?Lower Extremity Neurological Exam performed:?Yes Date ?Visual exam of foot performed:?Yes ?Date?07/10/2024 ?Footwear Evaluation?Footwear Evaluation performed:?Yes?Neurological: ?SENSORY:?Neurological exam reveals intact sensorium, pain sensation normal, vibration sensation intact, pinprick sensation is normal in the lower extremities, Pt denies, anesthesia, burning, paresthesia, tingling, B/L.? Assessment: * Assessment: 1.?Onychomycosis - B35.1???2 .?Atherosclerosis of [place] artery of both lower extremities, with unspecified presence of clinical manifestation - I70.203 (Primary)???3.?Pain of toe of right foot - M79.674???4.?Pain of toe of left foot - M79.675???5.?Other hammer toe(s) (acquired), right foot - M20.41???Specify :Chronic problem, Worse (4),Rx Management (4)???6.?Other hammer toe(s) (acquired), left foot - M20.42???Specify :Chronic problem, Worse (4),Rx Management (4)??? Plan: * Treatment: 2.?Onychomycosis?Procedure: 77410-EUZJUWS NAIL, 6 OR MORE 3.?Other hammer toe(s) (acqu ired), right foot? Start Orthopedic Extra Depth Shoes, With Custom Heat Molded Multidensity Innersoles, 1 Pair shoes with 3 Pair custom heat molded innersoles, Wear, Daily, 365 days, 2, Refills 0.?? * Procedures:?Debride Nail 6-10:?Nail debridement?Due to the clinical pathology outlined in the exam findings, performance of this nail treatment is medically necessary as its management by an unskilled/untrained nonprofessional would put this patients foot and overall health at risk. Therefore, debridement to affected nail(s), as described in exam (?TA, T1, T2, T3, T4, T5, T6, T7, T8, T9), was performed exclusively by the physician of record to reduce/remove overall nail length, girth, thickness, subungual debris, and necrotic tissue, by manual and/or electrical means through the use of a nail nipper and/or dremel-type radius grinder, to a more viable healthy nail [...] to maintain effectiveness in symptomatic relief - 30864.?Keratoma Treatment:?Parring or Cutting of Benign Hyperkeratotic Lesion(s)?(-57) [...] MTH (s),?1,?B/L?,?SUB MTH (s),?2,?B/L?,?SUB MTH (s),?3,?B/L?,?SUB MTH (s),?5,?B/L?,Plantar,?Heel(s),?B/L), were pared, and/or cut utilizing a sterile 15 blade, tissue nippers, and/or power dremel instrumentation by the physician of record - 99959, Q8.? * Procedure Codes:?50944 DEBRI DE NAIL, 6 OR MORE, Modifiers: XS 04918 TRIM SKIN LESIONS, OVER 4, Modifiers: XS , Q8 * Preventive Medicine:? ??Counseling:?Discussion:?-14: Office or other outpatient visit for the evaluation and management of an established patient, which required a medically appropriate history and/or examination and MODERATE level of DECISION MAKING for: 1 OR MORE CHRONIC PROBLEM(S) THATS WORSENING, 2 STABLE CHRONIC PROBLEMS, A NEWLY DIAGNOSED PROBLEM WITH UNCERTAIN PROGNOSIS, AN ACUTE COMPLICATED INJURY WITH MULTIPLE TREATMENT OPTIONS, OR AN ACUTE PROBLEM WITH ACCOMPANYING SYSTEMIC SYMPTOMS, THAT POSE(S) A MODERATE RISK OF MORBIDITY. THIS CONDITION MAY ALSO INCLUDE RX DRUG MANAGEMENT, OR A DECISON FOR MINOR SURGERY. The visit on the day of the [...] have encouraged the patient to call the office.?Digital Surgery:?Digital surgery was discussed with the patient, We elected to try conservative treatment at the present time, due to the patients medical history and increased asssociated post-operative risks.?Digital Treatment:?HT- I explained to the patient the possible etiologies of Hammertoes, including genetics/foot type/shoegear/activity level/exercise routine and the risks/benefits of all the different treatment options for their pain including: No treatment at all, Rest, Ice, New/supportive/wider/deeper Shoegear, Digital Padding/Strapping/Taping/Bracing/Gel protective sleeves, Foot/Ankle AFO Bracing, Stretching exercises, Deep Tissue Massage, Arch support/shoe inserts with splay metatarsal padding, and Custom orthoses. I insisted that any digital devices be removed daily and not worn overnight for safety. The patient is to carefully examine the toes daily for any skin irritation while using any splinting or padding device. The advantages and disadvantages of each option were discussed and the patients questions re: shoegear, padding, custom vs prefabricated inserts, activity level, and consistency in home treatment regimens for optimal success were answered to their verbally confirmed satisfaction.?Shoe Gear Counseling:?SHOE Rx - The patient was counseled in great detail on their muscoloskeletal foot and toe deformities which coincided with the dermatological presentations visualized on exam. We discussed how their deformities put the integrity of their feet at risk for potential pedal complications which makes the accomidative diabetic shoes and cutomizable inserts medically necessary. We discussed the different shoe and insert treatment types and options, as well as the important advantages for adhering to regularly wearing these accomidative devices daily. The patient was made aware of the fact that a failure to abide by these recommedations may be deleterious to their foot health as they are able to prevent many pedal complications such as skin irritation, skin ulceration, infection, and even loss of toe/foot/leg/or life. Time was also spent with the patient dispensing and discussing proper diabetic footcare techniques including daily skin moisturization, daily foot inspection for any interruption in skin integrity including open lesions, or sign of infection such as redness/malodor/drainage/swelling. Also discussed and recommended were procedures regarding daily shoe inspection for the presence of internal foreign bodies as well as any visualized irregular shoe or insert wear. Patient questions re: shoes, inserts, and self foot inspections were answered to their satisfaction as the patient verbally confirmed a full understanding of the above information. A Rx for Extra Depth Orthopedic Shoes with 3 pair of custom heat-molded inserts was dispensed.? ??Screening/Special Tests:?Fall Risk?Assessment:?Performed ?Plan of Care:?Documented ?Type of fall plan of care:?Balance, strength and gait training or instruction provided ?Screening:?Two or more falls with injury in the past year ?FALLS: Screening for Future Fall Risk?Have you had two or more falls in the past year??Yes ?Have you had any falls with injury in the past year??Yes * Follow Up:?2 Months * Images: * Sign off status: Completed true * Provider:?Mark Azar DPM Date:?2024 Generated for Jesus harden/Claudia/Earnestitting on:?10/22/2024 12:50 PM EDT History and Physical Notes * HPI (History of Present Illness) Category Sub-Category Detail Notes Category Not es Toe pain Location: B/L feet Duration: several years Course: worse Aggravated by: shoes, any pressure Treatments: change in shoes At Risk footcare Pt States Last PCP Visit: Date: 4 Examination Category Sub-Category Detail Notes Category Not es Neurological SENSORY: Neurological exa m reveals intact sensorium, pain sensation normal, vibration sensation intact, pinprick sensation is normal in the lower extremities, Pt denies, anesthesia, burning, paresthesia, tingling, B/L Dermatologic SKIN FINDINGS: Skin exam reveal s Keratotic lesion(s) located at, Medial plantar, IPJ, TA, Medial plantar, IPJ, T5, Plantar, T6, Plantar, T8, SUB MTH (s), 1, B/L , SUB MTH (s), 2, B/L , SUB MTH (s), 3, B/L , SUB MTH (s), 5, B/L ,Plantar, Heel(s), B/L Orthopedic FOOTWEAR EVALUATION: worn, non-s upportive, shoe gear properties exacerbate patients foot/toe deformity DIGITAL DEFORMITIES: Digital contracture , PIPJ, 2-5 B/L, incompl-reducible to push-up test, no over, nor underlapping, there is evidence of shoe producing skin irritation MUSCLE STRENGTH: 5/5 all groups in a symmetrical fashion, B/L General Examination GENERAL APPEARANCE: Reveals a pleasant, alert, well nourished, well-developed, well hydrated individual, who demonstrates proper attention to hygiene/body habitus, and is in no acute distress, Pt accompanied by, Female, VASCULAR ULTRASOUND TECHNICIAN, who serves as, Inside Horticultural Specialty Grower/Gas Refrigerator Servicer, and/who is physically present in exam room at time of visit FOOT EXAM: Lower Extremity Neurological Exa m performed:: Yes Date Visual exam of foot performed:: Yes Date: 07/10/2024 ORIENTED: person, place, and t ashwini Footwear Evaluation Footwear Evaluation performe d:: Yes Vascular DP PULSES (B): 0/4, B/L PT [...]
== END 2024-10-22 11:50 | disposition home or self-care (01) ==
LOC: HO.HSMS 10:48
PROVIDERS: Visit Provider Nurse Practitioner Family
DX: G20.B1 Parkinson's disease with dyskinesia, without mention of fluctuations (principal); M79.641 Pain in right hand; M79.642 Pain in left hand; I10 Essential (primary) hypertension; F32.A Depression, unspecified
CPT/HCPCS: 99214; G2211

== ENCOUNTER → 2024-10-22 10:48 | Outpatient (BNVA) | payer OTHER, SELFPAY | PROVIDERS: Visit Provider Nurse Practitioner Family | DX: G20.B1 Parkinson's disease with dyskinesia, without mention of fluctuations (principal); M79.641 Pain in right hand; M79.642 Pain in left hand; I10 Essential (primary) hypertension; F32.A Depression, unspecified | CPT/HCPCS: 99212 ==

== ENCOUNTER 2024-10-28 13:28 | Outpatient (AMB) | payer OTHER, SELFPAY ==
--- NOTE | 2024-10-28 13:45 | HO.NEPHOV_ITS ---
Vital Signs 10/28/24 13:46 Height 4 ft 11 in Weight 146 lb 8 oz BMI 29.6 BP 140/78 H Blood Pressure Location Lt brachial Position Sitting Intake Visit Reasons: INP: Essential (primary) hypertension Field Software Engineer Required: Yes Field Software Engineer Language: Turkish Field Software Engineer Services: Field Software Engineer Present Information Interpreted: clinical only Accompanied by: Self / Same As Patient Allergies Sulfa (Sulfonamide Antibiotics) Allergy (Mild, Verified 10/28/24 13:46) Swelling HPI Comments Details: I had the pleasure of seeing Fatou in consultation for labile hypertension. She has Parkinsons disease . She is walking slower, now needs a walker. Her speech is slower. She has hypertension and says her SBP is high in the mornings( it may even go upto 200). She has been taking lisinopril 5 mg daily. She follows with Endocrinology in [facility]. She has no H/O renal dysunction, uncontrolled thyroid disorders, EDU, DM, CAD, CVA, CHF, PAD or KALIN. She is compliant with low sodium diet and is compliant with her medications. [facility] Medical History (Updated 10/28/24 @ 14:28 by Allen Cole MD) History of osteoporosis Broken arm Vitamin D deficiency Urinary incontinence Rib fracture Osteoarthritis HTN (hypertension) Bilateral cataracts Low back pain potentially associated with radiculopathy Parkinson's disease Surgical History History of esophagogastroduodenoscopy (EGD) H/O shoulder surgery Social History Household Members Other:: lives alone Alcohol intake: never Patient Tobacco Use Status: Never used Tobacco Review of Systems Const All systems reviewed & are unremarkable except as noted in HPI and below Physical Exam Vital Signs: Last Vital Signs BP 140/78 H 10/28/24 13:46 BMI result Body Mass Index 29.6 Const General: comfortable and no acute distress Orientation/consciousness: patient oriented x3 HEENT Head: Yes normocephalic Mouth: Normal oral and palatal mucosa present Eyes EOM: EOMs intact bilaterally Neck Neck: Yes supple Resp Auscultation: clear to auscultation bilaterally Cardio Jugular venous distension: no JVD Rate: regular rate GI Palpation (GI): Soft to palpation Auscultation: normal bowel sounds General: Yes no CVA tenderness Back/Spine/Pelvis Back: no CVA tenderness Skin General skin exam: no rashes or lesions noted Neuro General: patient oriented x3 and moves all extremities Extrem General: Yes no pedal edema Results Reviewed Nephrology Results: No Data to Display Assessment & Plan Assessment & Plan (1) Labile hypertension: Code(s): R09.89 - Other specified symptoms and signs involving the circulatory and respiratory systems Category: Medical Plan Low sodium diet. Continued life style modifications Serum K and renal function normal; C/W current dose of lisinopril 24 hour ambulatory blood pressure monitor ordered No changes in medication made today; All questions answered Further management is pending evolving data Orders: Orders AMB 24 HR B/P Monitor PLACEMENT 10/28/24 R09.89 - Other specified symptoms and signs involving the circulatory and respiratory systems Coding Level of Care Code New Pt Level 4 (84054) Diagnoses Labile hypertension R09.89
[2024-10-28 13:46] VITALS: BP 140/78; BMI 29.6
--- OUTSIDE RECORDS SUMMARY | 2024-10-28 15:55 | XMS_ITS ---
Author Organization [facility] Jennyfer Velasquez Address [address] [place] [address] Care Team Providers Care Centrifugal Drier Operator Name Role Phone Petra De La O Primary Care Provider UnavailMark Wylie Unavailable [phone] Allergies Allergen (clinical drug ingredient) Drug/Non Drug [...] Daily for 365 days 07/10/2024 Active Neosporin 500-62313 UNIT/GM 1 application as needed Externally Once [...] Ordered Date Performed Result Body Sit e 95332-MJPESJS NAIL, 6 OR MORE 10/13/2024 N/A 50712-YUWO SKIN LESIONS, OVER 4 10/13/2024 N/A Encounters Encounter Location Date Provider Diagnosis [facility] [place] [address] [place] [address] 10/13/2024 Mark Azar Atherosclerosis of [place] artery of both lower extremities, with unspecified presence of clinical manifestation I70.203 ; Onychomycosis B35.1 ; Pain of toe of right foot M79.674 and Pain of toe of left foot M79.675 Assessments Encounter Date Diagnosis (ICD Code) Assessment Notes Treatment Notes Treatment Clinical Notes Section Notes 10/13/2024 Atherosclerosis of [place] artery of both lower extremities, with unspecified presence of clinical manifestation (ICD-10 - I70.203) 10/13/2024 Onychomycosis (ICD-10 - B35.1) 10/13/2024 Pain of toe of right foot (ICD-10 - M79.674) 10/13/2024 Pain of toe of left foot (ICD-10 - M79.675) 10/13/2024 Other Plan Of Treatment Pending Test Test Name Order Date 47927-VPZGXVJ NAIL, 6 OR MORE 10/13/2024 53871-XFSS SKIN LESIONS, OVER 4 10/14/19 25 Next Appt Details Follow Up: 2 Months, Reason: Provider Name:Mark Azar , 01/14/2025 11:30:00 AM, [address], [address], [place], [address], Procedure Notes * Category Sub-Category Detail Notes [...] use of a nail nipper and/or dremel-type soap grinder, to a more viable healthy nail [...] to maintain effectiveness in symptomatic relief - 41797 Keratoma Treatment Parring or Cutting o f [...] instrumentation by the physician of record - 35774, Q8 Progress Notes * Andrews JACQUESaDOB:[birth year] (78 yo F)Acc No.[id number]:10/13/2024 Progress Note Patient:?Andrews JACQUES Provider:?Mark Azar DPM :1945???Age:78 Y???Sex:Female D ate:10/13/2024 Address:[address] [facility] Pcp:Petra De La O Subjective: * Chief [...] exercise. ?Marital status: . 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 * Medications:?TakingAlendrona te Sodium 70 MG [...] Externally to feet Twice a day Neosporin 500-13360 UNIT/GM Ointment 1 application as needed Externally [...] to feet Twice a day Taking Neosporin 500-88452 UNIT/GM Ointment 1 application as needed Externally [...] * Assessment: 1.?Onychomycosis - B35.1???2 .?Atherosclerosis of [place] artery of both lower extremities, with unspecified presence of clinical manifestation - I70.203 (Primary)???Specify :Q8???3.?Pain of toe of right foot - M79.674???4.?Pain of toe of left foot - M79.675??? Plan: * Treatment: 2.?Onychomycosis?Procedure: 62664-EEDZMOA NAIL, 6 OR MORE * Procedures:?Debride Nail [...] use of a nail nipper and/or dremel-type soap grinder, to a more viable healthy nail [...] to maintain effectiveness in symptomatic relief - 21686.?Keratoma Treatment:?Parring or Cutting of Benign Hyperkeratotic Lesion(s)?(-57) [...] instrumentation by the physician of record - 51833, Q8.? * Procedure Codes:?95212 DEBRI DE NAIL, 6 OR MORE, Modifiers: XS 99861 TRIM SKIN LESIONS, OVER 4, Modifiers: XS , Q8 * Follow Up:?2 Months * Images: * Sign off status: Completed true * Provider:?Mark Azar DPM Date:?2024 Generated for Jesus harden/Claudia/eTransmitting on:?10/28/2024 03:55 PM EDT History and Physical Notes * [...]
--- OUTSIDE RECORDS SUMMARY | 2024-10-28 15:55 | XMS_ITS | Patient Health Record ---
Author Organization [facility] guillermo Delcambre Address [address] [place] [address] Care Team Providers Care Research Scientist Name Role Phone Petra De La O Primary Care Provider Unavailab Mark Smith Unavailable [phone] Allergies Allergen (clinical drug ingredient) Drug/Non Drug Allergy documented on EMR Reaction Allergy Type Onset Date Status Substance with sulfonamide structure and antibacterial mechanism of action (substance) Sulfa Antibiotics Unknown Drug Allergy Active Reason For Referral No Information Medications Medication SIG (Take, Route, Frequency, Duration) Notes Start Date End Date Status Calcium Citrate 200 MG as directed Orally Active Neosporin 500-97208 UNIT/GM 1 application as needed Externally Once [...] Problem Acquired hammer toe of right foot (7985885486813859) Other hammer toe(s) (acquired), right foot (M20.41) Active confirmed Problem Acquired hammer toe of left foot (6126869592066382) Other hammer toe(s) (acquired), left foot (M20.42) Active confirmed Problem Gout (20715668) Gout of left teresa t (M10.9) Active confirmed Problem 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) 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 Problem Intermittent claudication (49789652) Intermittent claudication (I73.9) Active confirmed Problem Atherosclerosis of [place] arteries of the extremities (802496268223554) Atherosclerosis of mo[place] artery of both lower extremities, with unspecified presence of clinical manifestation (I70.203) Active confirmed Vital Signs Blood pressure diastolic 60 mm Hg 07/10/2024 Height 4 ft 11 in in 10/13/2024 Blood pressure systolic 150 mm Hg 07/10/2024 Weight 150 lbs 10/13/2024 BMI 30.29 kg/m2 10/13/2024 Procedures Procedure Date Ordered Date Performed Result Body Sit e 66840-LFCRWLG NAIL, 6 OR MORE 11/15/2023 N/A 26170-KEURRGP SKIN/TISSUE 11/15/2023 N/A 01328-SADC SKIN LESIONS, OVER 4 11/15/2023 N/A 94993-DBCDWTM NAIL, 6 OR MORE 01/28/2024 N/A 67321- Debride <25 sq cm 01/28/2024 N/A 66920-MXXR SKIN LESIONS, OVER 4 01/28/2024 N/A 91598-KTLTTJX NAIL, 6 OR MORE 04/07/2024 N/A 00419-CLUX SKIN LESIONS, OVER 4 04/07/2024 N/A 82039-GOHJUYG NAIL, 6 OR MORE 07/10/2024 N/A 52098-IMOI SKIN LESIONS, OVER 4 07/10/2024 N/A 10512-DUPQLOR NAIL, 6 OR MORE 10/13/2024 N/A 70475-GGEA SKIN LESIONS, OVER 4 10/13/2024 N/A Encounters Encounter Location Date Provider Diagnosis [address] [address] 11/15/2023 Mark Azar Atherosclerosis of mo[place] artery of both lower extremities, with unspecified [...] left foot with fat layer exposed L97.[address] [address] 01/28/2024 Mark Azar Atherosclerosis of [place] artery of both lower extremities, with unspecified [...] foot, limited to breakdown of skin L97.[address] [address] 04/07/2024 Mark Azar Atherosclerosis of mo[place] artery of both lower extremities, with unspecified presence of clinical manifestation I70.203 ; Onychomycosis B35.1 ; Pain of toe of right foot M79.674 ; Pain of toe of left foot M79.675 and Skin ulcer of toe of left foot, limited to breakdown of skin L97.[address] [address] 07/10/2024 Mark Azar Atherosclerosis of mo[place] artery of both lower extremities, with unspecified presence of clinical manifestation I70.203 ; Onychomycosis B35.1 ; Pain of toe of right foot M79.674 ; Pain of toe of left foot M79.675 ; Other hammer toe(s) (acquired), right foot M20.41 and Other hammer toe(s) (acquired), left foot M20.42 [facility] [place] [address] [address] 10/13/2024 Mark Azar Atherosclerosis of mo[place] artery of both lower extremities, with unspecified presence of clinical manifestation I70.203 ; Onychomycosis B35.1 ; Pain of toe of right foot M79.674 and Pain of toe of left foot M79.675 Assessments Encounter Date Diagnosis (ICD Code) Assessment Notes Treatment Notes Treatment Clinical Notes Section Notes 11/15/2023 Onychomycosis (ICD-10 - B35.1) 11/15/2023 Atherosclerosis of [place] artery of both lower extremities, with unspecified presence of clinical manifestation (ICD-10 - I70.203) 01/28/2024 Onychomycosis (ICD-10 - B35.1) 01/28/2024 Atherosclerosis of [place] artery of both lower extremities, with unspecified presence of clinical manifestation (ICD-10 - I70.203) 04/07/2024 Onychomycosis (ICD-10 - B35.1) 04/07/2024 Atherosclerosis of mo[place] artery of both lower extremities, with unspecified presence of clinical manifestation (ICD-10 - I70.203) 07/10/2024 Onychomycosis (ICD-10 - B35.1) 07/10/2024 Atherosclerosis of mo[place] artery of both lower extremities, with unspecified presence of clinical manifestation (ICD-10 - I70.203) 10/13/2024 Onychomycosis (ICD-10 - B35.1) 10/13/2024 Atherosclerosis of mo[place] artery of both lower extremities, with unspecified [...] Treatment Pending Test Test Name Order Date 34541-RPELNCZ NAIL, 6 OR MORE 10/25/2020 81558-VNYVCTP NAIL, 6 OR MORE 01/12/2021 30245-HUBXPSV NAIL, 6 OR MORE 04/11/2021 35808-VATIJAZ NAIL, 6 OR MORE 07/18/2021 37901-QEGTJFV NAIL, 6 OR MORE 09/26/2021 50629-JVXDHZM NAIL, 6 OR MORE 11/28/2021 16809-FZDTLQR NAIL, 6 OR MORE 02/06/2022 45007-MWXCSWU NAIL, 6 OR MORE 04/27/2022 01820-ILLCWOR NAIL, 6 OR MORE 07/20/2022 21825-HJWENLS NAIL, 6 OR MORE 09/28/2022 20459-CEUNECI NAIL, 6 OR MORE 12/28/2022 75641-GXPCATA NAIL, 6 OR MORE 03/22/2023 94627-HYTKWEI NAIL, 6 OR MORE 06/21/2023 67525-HJEPUTC NAIL, 6 OR MORE 11/15/2023 62183-VJZEAGG NAIL, 6 OR MORE 01/28/2024 19283-QUFNCHH NAIL, 6 OR MORE 04/07/2024 62140-JDFVBHG NAIL, 6 OR MORE 07/10/2024 13548-ZMJOGHU NAIL, 6 OR MORE 10/13/2024 72623- Debride <25 sq cm 01/28/2024 46275-ZSFWUXE SKIN/TISSUE 11/15/2023 93650-HEAG SKIN LESIONS, OVER 4 04/07/20 24 90495-FDKH SKIN LESIONS, OVER 4 01/28/20 24 81102-TFKF SKIN LESIONS, OVER 4 11/15/19 24 91128-KEOY SKIN LESIONS, OVER 4 10/14/19 25 54681-KSGN SKIN LESIONS, OVER 4 07/10/19 97863-TCUA SKIN LESIONS, OVER 4 06/21/20 23 66943-NPAW SKIN LESIONS, OVER 4 03/22/20 23 10444-ZWTA SKIN LESIONS, OVER 4 06/22/20 23 39165-FZWD SKIN LESIONS, OVER 4 09/29/19 20324-TOJP SKIN LESIONS, OVER 4 07/20/19 Next Appt Details Provider Name:Mark Azar , 01/14/2025 11:30:00 AM, [address] [facility], [address], [place], [address], Insurance Providers Payer Name Payer Address Payer Phone Subscriber Number Group Number Insured Name Patient Relationship to Insured Coverage Start Date Coverage End Date [facility] [employer] Claims [address] EM[place] Omer [id number] Fatou Dennison Self - patient is the insured Medical (General) History Medical History History ICD Code Arthritis Back pain Cataracts chest pain Hypertension, benign Osteoporosis Parkinsons disease Vitamin D deficiency Surgical History Surgery Date(Month/Year) Hospitalization History Reason Date(Month/Year) [facility] - Fall, then rehab facility 07/31/23 [facility]- chest pain, high blood pressure 02/07
--- OUTSIDE RECORDS SUMMARY | 2024-10-28 15:55 | XMS_ITS | Data Portability ---
Author Organization [place] - [facility], [facility] Address [address] [place] [address] Assessment Encounter Date Assessment Date Assessment LastModified by Organization Details LastModified Time 02/15/2024 02/15/2024 Pt tolerated rx well. Fatigued quickly with strengthening exercises, able to progress strengthening as charted. Increase AROM flexion against gravity, endurance improving. Cont c POC, progress as tolerated. Not available 02/15/2024 11:27:11 02/18/2024 02/18/2024 Pt tolerated rx well. Fatigued quickly with strengthening exercises, but able to complete all w/o pain. Mod challenged c rows, limited L scap retraction. Required vc's and tc's for form. Cont c POC, progress as tolerated. [email or web address] Not available 02/18/2024 09:22:19 02/20/2024 02/20/2024 Pt tolerated rx well. Able to complete full program without c/o onset of pain. Intiiated more functional training today with repeated head taps and lifting small weight to 1st shelf. Fatigued quickly, compensating to reach higher with SA muscules. Cont c POC, progress as tolerated. [email or web address] Not available 02/20/2024 11:56:14 02/26/2024 02/26/2024 Pt tolerated rx well. Able to complete full program without c/o onset of pain. Improved ease with functional strengthening, able to increase repetitions with appropriate fatigue noted. Continues with difficulty performing overhead motions. Anticipated DC next visit. Update HEP. Not available 02/26/2024 10:28:46 03/07/2024 03/07/2024 Pt tolerated rx well. Able to complete full program without c/o onset of pain. improved reaching height overhead. Continue to fatigue with overhead reaching. ROM WFL. Pt reporting minimal functional complaints besides limitations overhead. Encouraged to continue with ther ex and f/u with any concerns. DC to ind HEP. [email or web address] Not available 03/07/2024 11:47:40 Plan of Treatment Reminders Order Date Submit Date Provider Last Modified By Organization Details Last Modified Time Details Appointments None record ed. Lab None record ed. Referral None record ed. Procedures None record ed. Surgeries None record ed. Imaging None record ed. Medication Orders None record ed. Patient TargetsNo targets recorded. Patient InstructionsNo instructions recorded. Reason for Referral None Reported. 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 Procedures Surgical History Date Name Laterality Status Provider Name and Address Organization Details Recorded Time 4 21832 Therapeutic Exercise (1:1) completed Elizabet Franklin DPT [address], [place], [address], [facility] 01/25/2024 08:51:06 4 61581: Hot or Cold Pack completed Elizabet Franklin DPT [address], [place], [address], [facility] 01/25/2024 08:51:06 4 84115: Manual therapy completed Elizabet Franklin DPT [address], [place], [address], [facility] 01/25/2024 11:17:58 4 93069 Therapeutic Exercise (1:1) completed Saima Martin MULTI SENSOR OPERATOR [address], [place], [address], [facility] 01/21/2024 09:03:55 4 91188: Hot or Cold Pack completed Saima Martin MULTI SENSOR OPERATOR [address], [place], [address], [facility] 01/22/2024 13:27:25 4 70709: Manual therapy completed Saima Martin MULTI SENSOR OPERATOR [address], [place], [address], [facility] 01/21/2024 09:03:55 4 39663 Therapeutic Exercise (1:1) completed Elizabet Franklin DPT [address], [place], [address], [facility] 01/18/2024 11:41:16 4 23620: Hot or Cold Pack completed Elizabet Franklin DPT [address], [place], [address], [facility] 01/18/2024 11:37:04 4 63613: Manual therapy completed Elizabet Franklin DPT [address], [place], [address], [facility] 01/18/2024 11:40:56 4 60099 Therapeutic Exercise (1:1) completed Saima Martin MULTI SENSOR OPERATOR [address], [place], [address], [facility] 01/14/2024 13:29:51 4 34163: Hot or Cold Pack completed Saima Martin, MULTI SENSOR OPERATOR [address], [place], [address], [facility] 01/14/2024 13:29:51 4 47373: Manual therapy completed Saima Martin MULTI SENSOR OPERATOR [address], [place], [address], [facility] 01/14/2024 13:29:51 4 19729 Therapeutic Exercise (1:1) completed Elizabet Franklin DPT [address], [place], [address], [facility] 01/09/2024 11:36:10 4 72277: Hot or Cold Pack completed Elizabet Franklin DPT [address], [place], [address], [facility] 01/09/2024 11:36:10 4 39962: Manual therapy completed Elizabet Franklin DPT [address], [place], [address], [facility] 01/09/2024 11:36:10 4 46417 Therapeutic Exercise (1:1) completed Saima Martin PTA [address], [place], [address], [facility] 01/04/2024 09:15:47 4 25708: Hot or Cold Pack completed Saima Martin PTA [address], [place], [address], [facility] 01/03/2024 15:22:51 4 25675: Manual therapy completed Saima Martin PTA [address], [place], [address], [facility] 01/04/2024 09:15:18 4 64101 Therapeutic Exercise (1:1) completed Saima Martin PTA [address], [place], [address], [facility] 01/02/2024 09:05:38 4 99043: Hot or Cold Pack completed Saima Martin PTA [address], [place], [address], [facility] 01/02/2024 09:05:45 4 14913: Manual therapy completed Saima Martin MULTI SENSOR OPERATOR [address] [facility], [place], [address], [facility] 01/02/2024 09:05:27 4 20996 Therapeutic Exercise (1:1) completed Elizabet Franklin DPT [address] [facility], [place], [address], [facility] 12/28/2023 08:59:50 4 64959: Hot or Cold Pack completed Elizabet Franklin DPT [address] [facility], [place], [address], [facility] 12/28/2023 08:54:23 4 35064: Manual therapy completed Elizabet Franklin DPT [address] [facility], [place], [address], [facility] 12/28/2023 08:59:58 4 97359 Therapeutic Exercise (1:1) completed Elizabet Franklin DPT [address] [facility], [place], [address], [facility] 12/24/2023 20:19:36 4 30998: Low complexity PT Eval completed Elizabet Franklin DPT [address] [facility], [place], [address], [facility] 12/24/2023 20:20:07 Imaging Results None recorded. Procedure Notes None recorded. Medical Equipment None Reported. Allergies Allergen ID Allergen Name Allergen Category Reaction Reaction Severity Criticality Documentation Date Start Date Code Code System Note Provider Name and Address Organization Details Recorded Time 57156 Substance with sulfonami de structure and antibacte rial mechanism of action (substanc e) medicatio n Not available Not available Not available 09/10/20232013 62766 8003 SNOMED Not Available [facility] 12:19:33 Medications Name Sig Start Date Stop Date Status Note LastModified by Organization Details LastModified Time latanoprost 0.005 % eye drops APPLY 1 DROP TO EYE EVERY EVENING active Not Available Not Available No t Available alendronate 70 mg tablet active Not Available Not Available Not Available pantoprazole 20 mg tablet,delaye d release active Not Available Not Available No t Available pramipexole 0.5 mg tablet active Not Available Not Availabl e Not Available famotidine 20 mg tablet active Not Available Not Available No t Available carboxymethyl cellulose sodium 0.5 % eye drops active Not Available Not Available No t Available torsemide 5 mg tablet active Not Available Not Available No t Available pantoprazole 40 mg tablet,delaye d release active Not Available Not Available No t Available methimazole 5 mg tablet active Not Available Not Available No t Available pramipexole 0.25 mg tablet active Not Available Not Available Not Available omeprazole 20 mg capsule,delay ed release active Not Available Not Available N ot Available lisinopril 5 mg tablet active Not Available Not Available No t Available gabapentin 100 mg capsule active Not Available Not Available Not Available carbidopa 25 mg-levodopa 100 mg tablet active Not Available Not Availabl e Not Available meclizine 25 mg chewable tablet active Not Available Not Available Not Available calcium 200 mg (as calcium citrate 950 mg) tablet active Not Available Not Available N ot Available rasagiline 0.5 mg tablet active Not Available Not Availabl e Not Available rasagiline 1 mg tablet active Not Available Not Available No t Available diclofenac 1 % topical gel active Not Available Not Availabl e Not Available oxycodone HCl-oxycodone -ASA oxyCODONE HCl 5MG Tablet 2023 active Statu s: 'Curr ent'; Not Available Not Available Not Available Vitamin D3 125 mcg (5,000 unit) tablet active Not Available Not Available Not Available Double Antibiotic (bacitrcn zn) 500 unit-10,000 unit/gram top ointment active Not Available Not Available Not Available Myrbetriq 25 mg tablet,extend ed release active Not Available Not Available N ot Available One-A-Day Women's Complete 18 mg iron-400 mcg tablet active Not Available Not Available N ot Available Vitals None Recorded Social History None recorded. Functional Status None recorded. Mental Status None recorded. Family History Nothing Reported. Medical History No medical history recorded. Gynecological HistoryNo gynecological history recorded. Obstetrics History GPAL:G 0 P 0 0 0 0 Past Encounters Encounter ID Performer Location Encounter Start Date Encounter Closed Date Diagnosis/Indication Diagnosis SNOMED-CT Code Diagnosis ICD10 Code Diagnosis Note [id number] Eve Alegre PA-C [facility] [address] [place] [address] 10/02/2023 14:28:20 10/02/2023 15:31:10 Pain in left arm 787501226 M79.008 [id number] Eve Alegre PA-C [facility] [address] [place] [address] 12/05/2023 09:24:45 12/26/2023 13:45:13 Closed fracture of proximal left humerus 4423782701 7844049 S4.A [id number] [facility] [address] [place] [address] 12/25/2023 11:28:24 12/25/2023 12:37:12 Closed fracture of proximal left humerus 1656049241 [id number] S42.D [id number] Elizabet Franklin DPT [facility] [address] [place] [address] 12/28/2023 08:32:26 12/28/2023 09:23:50 Closed fracture of proximal left humerus 7570049060 [id number] S42.D [id number] Elizabet Franklin DPT [facility] [address] [place] [address] 01/02/2024 08:28:53 01/02/2024 09:33:10 Closed fracture of proximal left humerus 1067834709 [id number] S42.D [id number] [facility] [address] [place] [address] 01/04/2024 08:27:52 01/04/2024 09:21:04 Closed fracture of proximal left humerus 4458231505 [id number] S42.D [id number] Elizabet Franklin DPT [facility] [address] [place] [address] 01/09/2024 11:26:15 01/09/2024 12:37:59 Closed fracture of proximal left humerus 4742000302 [id number] S42.D [id number] Elizabet Franklin DPT [facility] [address] [facility] [place] [address] 01/15/2024 11:22:33 01/15/2024 12:19:32 Closed fracture of proximal left humerus 3663560745 [id number] S42.D [id number] Elizabet Franklin DPT [facility] [address] [place] [address] 01/18/2024 10:36:13 01/18/2024 11:45:34 Closed fracture of proximal left humerus 3307111149 [id number] S42.D [id number] Elizabet Franklin DPT [facility] [address] [facility] [place] [address] 01/22/2024 11:31:29 01/22/2024 13:44:41 Closed fracture of proximal left humerus 2627248841 [id number] S42.D [id number] Elizabet Franklin DPT [facility] [address] [place] [address] 01/25/2024 10:55:04 01/25/2024 13:39:52 Closed fracture of proximal left humerus 2334099606 [id number] S42.D [id number] Elizabet Franklin DPT [facility] [address] [facility] [place] [address] 01/29/2024 10:50:21 01/29/2024 12:05:08 Closed fracture of proximal left humerus 7360644749 [id number] S42.D [id number] [facility] [address] [facility] [place] [address] 02/01/2024 11:01:39 02/01/2024 12:06:08 Closed fracture of proximal left humerus 1232363266 [id number] S42.D [id number] Elizabet Franklin DPT [facility] [address] [facility] [place] [address] 02/05/2024 11:00:41 02/05/2024 14:52:05 Closed fracture of proximal left humerus 1300973449 [id number] S42.D [id number] [facility] [address] [place] [address] 02/12/2024 11:24:25 02/12/2024 12:09:29 Closed fracture of proximal left humerus 1090297771 [id number] S42.D [id number] [facility] [address] [place] [address] 02/15/2024 09:19:36 02/15/2024 11:27:49 Closed fracture of proximal left humerus 8329080042 [id number] S42.D [id number] [facility] [address] [place] [address] 02/18/2024 08:17:57 02/18/2024 09:23:03 Closed fracture of proximal left humerus 6099471791 [id number] S42.D [id number] Elizabet Franklin DPT [facility] [address] [place] [address] 02/20/2024 10:58:22 02/20/2024 11:56:52 Closed fracture of proximal left humerus 1616563591 [id number] S42.D [id number] Elizabet Franklin DPT [facility] [address] [place] [address] 02/26/2024 09:21:13 02/26/2024 10:29:20 Closed fracture of proximal left humerus 5555914122 [id number] S42.D [id number] Elizabet Franklin DPT [facility] [address] [place] [address] 03/07/2024 10:54:13 03/07/2024 11:48:03 Closed fracture of proximal left humerus 9558607905 [id number] S42.D Health Concerns Section Related Observation LastModified by Organization Detai ls LastModified Time None Recorded Concern Status LastModified by Organization Details LastModified Time None Recorded Advance Directives Directive None Recorded Payers Encounter Date Sequence Insurance Name Policy Number Policy Hu Covered Member ID Hu Member ID Guarantor Name 02/15/2024 1 [facility] - DOS ON OR AFTER 2022 - JAIL OPTIONS AND ONE CARE (MEDICARE REPLACEMENT/AD VANTAGE - PPO) Fatou Hardin [id number] Fatou Hongheva 02/18/2024 1 [facility] DOS ON OR AFTER 2022 - JAIL OPTIONS AND ONE CARE (MEDICARE REPLACEMENT/AD VANTAGE - PPO) Fatou Riderva [id number] Fatou Hongheva 02/20/2024 1 [facility] - DOS ON OR AFTER 2022 - JAIL OPTIONS AND ONE CARE (MEDICARE REPLACEMENT/AD VANTAGE - PPO) Fatou Riderva [id number] Fatou Hongheva 02/26/2024 1 [facility] - DOS ON OR AFTER 2022 - JAIL OPTIONS AND ONE CARE (MEDICARE REPLACEMENT/AD VANTAGE - PPO) Fatou Riderva [id number] Fatou Hongheva 03/07/2024 1 [facility] [facility] - DOS ON OR AFTER 2022 - JAIL OPTIONS AND ONE CARE (MEDICARE REPLACEMENT/AD VANTAGE - PPO) Fatou Riderva [id number] Fatou Hardin Notes Date Note Type Note Provider Name and Address Organization Details Recorded Time 02/15/2024 text/html Pt denies pain coming into therapy. Elizabet Franklin DPT [address], [place], [address], [facility] 02/15/2024 11:27:44 02/18/2024 text/html Pt denies pain coming into therapy. Still having trouble reaching into overhead cupboard.8min early Saima Martin, MULTI SENSOR OPERATOR [address], [place], [address], [facility] 02/18/2024 09:22:58 02/20/2024 text/html Pt denies pain coming into therapy. Reporting some difficulty washing hair or reaching into cabinet with anything more than a light dish. Elizabet Franklin DPT [address], [place], [address], [facility] 02/20/2024 11:56:48 02/26/2024 text/html Pt denies pain coming into therapy. Elizabet Franklin DPT [address], [place], [address], [facility] 02/26/2024 10:29:13 03/07/2024 text/html Pt denies pain coming into therapy. Elizabet Franklin DPT [address], [place], [address], [facility] 03/07/2024 11:47:58 OBGyn Episode No OBEpisode recorded.
--- OUTSIDE RECORDS SUMMARY | 2024-10-28 15:55 | XMS_ITS | Clinical Summary ---
Author Organization 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 Phone Petra Hernandez Primary Care Provider [phone] Allergies Active Allergy Reactions Criticality Noted Date [...] 08/05/2024 10:00 AM EST Office Visit Endocrinology [address] [address] Neli Dexter PA Subclinical hyperthyroidism (Primary Dx); [...] 10:00 AM EDT Appointment Radiology Department - [address] [phone] 11/20/2024 9:40 AM EDT Office Visit Endocrinology - [address] [phone] Neli Dexter PA [address] [place], [place] Health Maintenance Due Date Last Done Comments COVID-19 Vaccine (#1) 12/16/1950 Zoster Vaccines (1 of 2) 12/16/1962 DTaP,Tdap,and Td Vaccines (2 - Td or Tdap) 07/09/2008 07/09/1998 Pneumococcal Vaccine: 50+ Years (3 of 3 - PCV) 12/15/2014 12/15/2013, 06/12/2005 RSV Immunization Adult Patients (1 - 1-dose 75+ series) 12/16/2018 Falls Risk Assessment 08/07/2023 Osteoporosis Screening (Bone Density Screening) 08/07/2023 02/10/2013 Social Influencers of Health Screening 08/07/2023 Hypertension/CHF/CAD Annual BMP Blood Test 08/05/2024 06/06/2012 Influenza Vaccine (Season Ended) 2025 06/19/2017, 07/09/2008 Depression Screening 03/18/2025 03/18/2024 Cholesterol Screening (Lipid Panel) 01/20/2029 01/21/2024, 06/07/2012 [...] LAB CHEMISTRY METHOD 08/05/2024 4:12 PM EST [facility] Blood Venous blood specimen / Unknown Venipuncture / Unknown 08/05/2024 11:14 AM EST 08/05/2024 11:14 AM EST us Neli DIAZ LAB BLOOD ORDERABLES Final Resul t [facility] [address] [place] [address], [place] [phone] * White blood count (08/05/2024 11:14 AM EST) [facility] WBC 5.9 4.8 - 10.8 K/mcL LAB HEMETOLOGY METHOD 08/05/2024 3:16 PM [facility] Blood Venous blood specimen / Unknown Venipuncture / Unknown 08/05/2024 11:14 AM EST 08/05/2024 11:14 AM EST us Neil DIAZ LAB BLOOD ORDERABLES Final Resul t [facility] [address] [place] [address], [place] [phone] * Hepatic function panel (08/05/2024 11:14 AM EST) [facility] Total Protein 7.5 6.0 - 8.0 g/dL LAB CHEMISTRY METHOD 08/05/2024 4:06 PM [facility] Albumin 3.9 3.2 - 5.0 g/dL LAB CHEMISTRY METHOD 08/05/2024 4:06 PM [facility] Total Bilirubin 0.5 0.0 - 1.4 mg/dL LAB CHEMISTRY METHOD 08/05/2024 4:06 PM [facility] Bilirubin, Direct 0.1 0.0 - 0.3 mg/dL LAB CHEMISTRY METHOD 08/05/2024 4:06 PM [facility] Bilirubin, Indirect 0.4 0.0 - 1.1 mg/dL LAB CHEMISTRY METHOD 08/05/2024 4:06 PM [facility] ALT (SGPT) 18 10 - 60 unit/L LAB CHEMISTRY METHOD 08/05/2024 4:06 PM [facility] AST (SGOT) 21 10 - 42 unit/L LAB CHEMISTRY METHOD 08/05/2024 4:06 PM [facility] Alkaline Phosphatase 85 42 - 121 unit/L LAB CHEMISTRY METHOD 08/05/2024 4:06 PM [facility] Blood Venous blood specimen / Unknown Venipuncture / Unknown 08/05/2024 11:14 AM EST 08/05/2024 11:14 AM EST us Neli DIAZ LAB BLOOD ORDERABLES Final Resul t [facility] ([facility]) [facility] [address] [place] [address], from Last 3 Months Insurance * Guarantor: Fatou Hardin Account Type Relation to Patient Date of Phone Billing Address Personal/Family Self 1945 [id number] [facility] [address] [place] [address] [facility] MEDICAID EMILY SOLIS [id number] 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
--- OUTSIDE RECORDS SUMMARY | 2024-10-28 15:56 | XMS_ITS | Clinical Summary ---
Author Organization [facility] Address [address] [place] [address] Care Team Providers Care News Camera Operator Name Role Phone Petra Hernandez NP Primary Care Provider [phone] Source Comments PLEASE NOTE, if this patient [...] disease without dyskinesia, unspecified whether manifestations fluctuate ([facility]) Take 2 Tablets by mouth 4 (four) [...] 5 07/30/19 25 Active MYRBETRIQ 25 mg [id number]:S tress incontinence TAKE ONE TABLET BY MOUTH [...] Hyperthyroidism 01/21/2024 Overview (01/21/2024): 01/2024: [facility] in [facility] next appt mar 05 Closed left humeral fracture 09/21/2023 Overview (09/21/2023): Occurred 07/30 after mechanical fall during OV visit at [facility]. Patient seen at [facility] afterwards; given a splint and sling. Has Ortho on October 01. 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 No falls since last visit. Lives alone, [facility] nurse visits weekly and SIDE SPLITTER daily by family member 10/2023: seen with domi, f/u 6 months Presence of dental prosthetic device 04/27/2023 Rib fracture 04/27/2023 Shoulder pain 04/27/2023 Stress incontinence of urine 04/27/2023 Vitamin D deficiency 04/27/2023 Resolved Problems Problem Noted Date Diagnosed Date Resolved Date Osteopenia 04/27/2023 03/18/2024 Upper respiratory infection 04/27/2023 05/28/2023 Encounters Date Type Department Care Team Description 10/06/2024 4:20 PM EDT Office Visit [address] [phone] Petra Hernandez NP Vasylyshyn, Oksana Skin tag [...] Description 11/19/2024 11:20 AM EDT Office Visit [address] [phone] Petra Hernandez, MILLER [address] [facility] [place] [address] [place] [address] 11/24/2024 10:40 AM EDT Office Visit [address] [phone] Rubén Arora, PharmD [address] [place], [place] Gaviota Pryor [address] [place] [address] 12/19/2024 11:00 AM EDT Office Visit [facility] [address] [place] [address] Petra Hernandez, BI LEAD [address] [facility] [place] [address] Health Maintenance Due Date Last Done Comments Imm-DTaP/Tdap/Td (1 - Tdap) 12/16/1962 Imm-Pneumococcal 65+ (1 of 1 - PCV) 12/16/1993 Imm-Zoster, Recombinant (1 of 2) 12/16/1993 Bone Density Screening 12/16/2008 Wyr-LEMEO-01 ( season) 2024 Alcohol and Drug Screen 07/09/2024 [...] Date/Time Associated Diagnosis Comments REFERRAL SCANNED DOCUMENT 10/22/2024 3:00 AM EDT REFERRAL SCANNED DOCUMENT 10/03/2024 3:00 AM EDT HEMOGLOBIN GLYCOSYLATED A1C Routine 01/21/2024 9:45 AM EDT Obesity (BMI 30-39.9) Age related osteoporosis, unspecified pathological fracture presence Cramp in limb Parkinson's disease without dyskinesia, unspecified whether manifestations fluctuate ([facility]CC-CMS) Stress incontinence Hyperthyroidism from Last 3 Months or Most Recently Relevant to Health Maintenance Results * REFERRAL SCANNED DOCUMENT (10/22/2024 3:00 AM EDT) Only the most recent of2 resultswithin the time period is included. 10/22/2024 3:00 AM EDT Millie De La O SCAN REFERRAL Final Result * (ABNORMAL) HEMOGLOBIN GLYCOSYLATED A1C (01/21/2024 9:45 AM EDT) HEMOGLOBIN A1C 6.1(H) <5.7 % of total Hgb [facility] Comment: For someone without known diabetes, a [...] AM EDT 01/21/2024 9:46 AM EDT Narrative [facility] - 01/22/2024 5:58 AM EDT FASTING:YES Petra Hernandez NP LAB - BLOOD DRAW Edited Resu lt - Final [facility] [address] [place] [address], [facility] [address] [address] from Last 3 Months or Most Recently Relevant to Health Maintenance Insurance [employer] Member Subscriber Plan / Payer (Ef fective 2023-Present) Name:Fatou rivera Relation to Subscriber:Self Name:Fatou rivera Payer ID:[id number] Group ID:Not on file Type:Indemnity Address: [place] [address] [address] [address] Care Teams News Camera Operator Relationship Specialty Start Date End Date Petra Hernandez NP [address] [place] [address] PCP - General Internal Medicine 08/03/23
--- OUTSIDE RECORDS SUMMARY | 2024-10-28 15:56 | XMS_ITS ---
Author Organization [facility] Address [address] [place] [address] Care Team Providers Care Wheel Borer Name Role Phone Petra De La O Primary Care Provider UnavailMark Wylie Unavailable [phone] Allergies Allergen (clinical drug ingredient) Drug/Non Drug [...] water Orally for 30 day(s) Active Neosporin 500-56488 UNIT/GM 1 application as needed Externally Once [...] Problem Acquired hammer toe of right foot (3295942175084 105) Other hammer toe(s) (acquired), right foot (M20.41) Active confirmed Problem Acquired hammer toe of left foot (4737543750982 103) Other hammer toe(s) (acquired), left foot (M20.42) Active confirmed Vital Signs Height 4 ft 11 in in 07/10/2024 Weight 150 lbs 07/10/2024 BMI 30.29 kg/m2 07/10/2024 Blood pressure systolic 150 mm Hg 07/10/19 25 Blood pressure diastolic 60 mm Hg 025 Procedures Procedure Date Ordered Date Performed Result Body Sit e 76932-HOOWUBK NAIL, 6 OR MORE 07/10/2024 N/A 09605-ZGJY SKIN LESIONS, OVER 4 07/10/2024 N/A Encounters Encounter Location Date Provider Diagnosis [facility] [address] [address] 07/10/2024 Mark Azar Atherosclerosis of [place] artery of both lower extremities, with unspecified [...] Clinical Notes Section Notes 07/10/2024 Atherosclerosis of [place] artery of both lower extremities, with unspecified [...] 07/10/2024 Pending Test Test Name Order Date 13662-JAZRYHW NAIL, 6 OR MORE 07/10/2024 68292-XAEN SKIN LESIONS, OVER 4 07/10/19 25 Next Appt Details Follow Up: 2 Months, Reason: Provider Name:Mark Azar , 01/14/2025 11:30:00 AM, [address], [place], [address], Procedure Notes * Category Sub-Category Detail Notes [...] use of a nail nipper and/or dremel-type snag grinder, to a more viable healthy nail [...] to maintain effectiveness in symptomatic relief - 46614 Keratoma Treatment Parring or Cutting o f [...] instrumentation by the physician of record - 47179, Q8 Progress Notes * Andrews JACQUESaDOB:[birth year] (78 yo F)Acc No.[id number]:07/10/2024 Progress Note Patient:?SAWYER Lydiajuan barker Provider:?Mark Azar DPM :1945???Age:78 Y???Sex:Female D ate:07/10/2024 Address:[address] [place], [place] [phone] Pcp:Petra De La O Subjective: * Chief [...] Externally to feet Twice a day Neosporin 500-64699 UNIT/GM Ointment 1 application as needed Externally [...] to feet Twice a day Taking Neosporin 500-46448 UNIT/GM Ointment 1 application as needed Externally [...] no acute distress, Pt accompanied by, Female, MUSIC BOX MECHANIC, who serves as, Client Services Vice President/Driver Messenger, and/who is physically present in exam room [...] * Assessment: 1.?Onychomycosis - B35.1???2 .?Atherosclerosis of [place] artery of both lower extremities, with unspecified presence of clinical manifestation - I70.203 (Primary)???3.?Pain of toe of right foot - M79.674???4.?Pain of toe of left foot - M79.675???5.?Other hammer toe(s) (acquired), right foot - M20.41???Specify :Chronic problem, Worse (4),Rx Management (4)???6.?Other hammer toe(s) (acquired), left foot - M20.42???Specify :Chronic problem, Worse (4),Rx Management (4)??? Plan: * Treatment: 2.?Onychomycosis?Procedure: 28769-GJVZTGY NAIL, 6 OR MORE 3.?Other hammer toe(s) [...] use of a nail nipper and/or dremel-type snag grinder, to a more viable healthy nail [...] to maintain effectiveness in symptomatic relief - 76998.?Keratoma Treatment:?Parring or Cutting of Benign Hyperkeratotic Lesion(s)?(-57) [...] instrumentation by the physician of record - 03385, Q8.? * Procedure Codes:?38376 DEBRI DE NAIL, 6 OR MORE, Modifiers: XS 01681 TRIM SKIN LESIONS, OVER 4, Modifiers: XS [...] Provider:?Mark Azar DPM Date:?2024 Generated for Jesus harden/Claudia/Alirio on:?10/28/2024 03:55 PM EDT History and Physical [...] no acute distress, Pt accompanied by, Female, MUSIC BOX MECHANIC, who serves as, Client Services Vice President/Driver Messenger, and/who is physically present in exam room [...]
--- OUTSIDE RECORDS SUMMARY | 2024-10-28 15:56 | XMS_ITS ---
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 Problem Gout (35489018) Gout of left foot (M10.9) Active confirmed Vital Signs Height 4 ft 11 in in 04/07/2024 Weight 144 lbs 04/07/2024 BMI 29.08 kg/m2 04/07/2024 Procedures Procedure Date Ordered Date Performed Result Body Sit e 16102-AHQMFRH NAIL, 6 OR MORE 04/07/2024 N/A 71610-QEGU SKIN LESIONS, OVER 4 04/07/2024 N/A Encounters Encounter Location Date Provider Diagnosis [facility] [address] [address] 04/07/2024 Mark Azar Atherosclerosis of [place] artery of both lower extremities, with unspecified presence of clinical manifestation I70.203 ; Onychomycosis B35.1 ; Pain of toe of right foot M79.674 ; Pain of toe of left foot M79.675 and Skin ulcer of toe of left foot, limited to breakdown of skin L97.521 Assessments Encounter Date Diagnosis (ICD Code) Assessment Notes Treatment Notes Treatment Clinical Notes Section Notes 04/07/2024 Atherosclerosis of [place] artery of both lower extremities, with unspecified [...] Treatment Pending Test Test Name Order Date 34946-HRHWPMP NAIL, 6 OR MORE 04/07/2024 44704-DFIZ SKIN LESIONS, OVER 4 04/07/20 24 Next Appt Details Follow Up: 2 Months, Reason: Provider Name:Mark Azar , 01/14/2025 11:30:00 AM, [address] [facility], [place] [address], [place], [address], Procedure Notes * Category Sub-Category Detail Notes Debride Nail 6-10 Nail debridement Performance o f this nail treatment by a nonprofessional would put this patients foot and overall health at risk. Therefore, nail debridement was performed extensively to reduce/remove overall nail length, girth, thickness, subungual debris, and necrotic tissue, by manual and/or electrical means through the use of a nail nipper and/or dremel-type automatic corn grinder operator, to a more viable healthy nail plate or bed tissue 6-10. Silver nitrate used for any petechial bleeding as necessary. Definitive antifungal treatment options have been reviewed and discussed with the patient. The patient chooses, no pharmaceutical tx - 24131 Keratoma Treatment Parring or Cutting o f Benign Hyperkeratotic Lesion(s) (-57) More than 4 Lesions - The Benign hyperkeratotic lesions, as described above were pared, and/or cut utilizing a sterile 15 blade, tissue nippers, and/or dremel - 70672 , Q8 Progress Notes * Andrews JACQUESaDOB:[birth year] (78 yo F)Acc No.[id number]:04/07/2024 Progress Note Patient:?SAWYER Andrews lucero Provider:?Mark Azar DPM :1945???Age:78 Y???Sex:Female D ate:04/07/2024 Address:[address] [place], [place] [address] Pcp:Petra De La O Subjective: * Chief [...] Externally to feet Twice a day Neosporin 500-39081 UNIT/GM Ointment 1 application as needed Externally [...] to feet Twice a day Taking Neosporin 500-19412 UNIT/GM Ointment 1 application as needed Externally [...] * Assessment: 1.?Onychomycosis - B35.1???2 .?Atherosclerosis of [place] artery of both lower extremities, with unspecified presence of clinical manifestation - I70.203???3.?Pain of toe of right foot - M79.674???4.?Pain of toe of left foot - M79.675 ??5.?Skin ulcer of toe of left foot, limited to breakdown of skin - L97.521???Specify :Acute problem, Stable (1=3),Response to treatment - Improvement??? Plan: * Treatment: 2.?Atherosclerosis of [place] artery of both lower extremities, with unspecified presence of clinical manifestation?Procedure: 01920-AMLX SKIN LESIONS, OVER 4 * Procedures:?Debride Nail 6-10:?Nail debridement?Performance of this nail treatment by a nonprofessional would put this patients foot and overall health at risk. Therefore, nail debridement was performed extensively to reduce/remove overall nail length, girth, thickness, subungual debris, and necrotic tissue, by manual and/or electrical means through the use of a nail nipper and/or dremel-type automatic corn grinder operator, to a more viable healthy nail plate or bed tissue 6-10. Silver nitrate used for any petechial bleeding as necessary. Definitive antifungal treatment options have been reviewed and discussed with the patient. The patient chooses, no pharmaceutical tx - 26560.?Keratoma Treatment:?Parring or Cutting of Benign Hyperkeratotic Lesion(s)?(-57) More than 4 Lesions - The Benign hyperkeratotic lesions, as described above were pared, and/or cut utilizing a sterile 15 blade, tissue nippers, and/or dremel - 12813 , Q8.? * Procedure Codes:?59733 DEBRI DE NAIL, 6 OR MORE, Modifiers: XS 51424 TRIM SKIN LESIONS, OVER 4, Modifiers: XS [...] Carlos Azar DPM Date:?2023 Generated for Jesus harden/Claudia/Alirio on:?10/28/2024 03:56 PM EDT History and Physical Notes * [...]
== END 2024-10-28 14:31 | disposition home or self-care (01) ==
LOC: HO.HKAS 13:28
PROVIDERS: PCP Nurse Practitioner; Referring Provider Nurse Practitioner Family; Visit Provider Internal Medicine Nephrology
DX: R09.89 Other specified symptoms and signs involving the circulatory and respiratory systems (principal)
CPT/HCPCS: 99204

== ENCOUNTER → 2024-10-28 13:28 | Outpatient (BNVA) | payer OTHER, SELFPAY | PROVIDERS: PCP Nurse Practitioner; Referring Provider Nurse Practitioner Family; Visit Provider Internal Medicine Nephrology | DX: R09.89 Other specified symptoms and signs involving the circulatory and respiratory systems (principal) | CPT/HCPCS: 99202 ==

== ENCOUNTER → 2024-11-05 14:47 | Outpatient (BNVA) | payer OTHER, SELFPAY | PROVIDERS: PCP Nurse Practitioner; Visit Provider Internal Medicine Nephrology ==

== ENCOUNTER 2024-11-06 14:56 | Outpatient (AMB) | payer OTHER, SELFPAY ==
--- NOTE | 2024-11-06 15:11 | HO.NEPHOV_ITS ---
Vital Signs 11/06/24 15:13 Height 4 ft 11 in Weight 146 lb BMI 29.5 BP 120/62 Blood Pressure Location Lt brachial Position Sitting Pulse 82 Pulse Source Pulse Oximeter Pulse Oximetry (%) 94 Oxygen Delivery Method Room Air Intake Visit Reasons: follow-up / Monitor interpretation Coin Machine Servicer Repairer Required: Yes Coin Machine Servicer Repairer Language: Sudanese Coin Machine Servicer Repairer Services: Coin Machine Servicer Repairer Present Coin Machine Servicer Repairer Name: Jannie [id number] Information Interpreted: clinical only Accompanied by: Other Relationship Allergies Sulfa (Sulfonamide Antibiotics) Allergy (Mild, Verified 11/06/24 15:12) Swelling HPI Comments Details: Fatou was seen in for labile hypertension. She has Parkinsons disease . She is walking slower, now needs a walker. Her speech is slower. She has hypertension and says her SBP is high in the mornings( it may even go upto 200). She has been taking lisinopril 5 mg daily. She follows with Endocrinology in [facility]. She has no H/O renal dysunction, uncontrolled thyroid disorders, EDU, DM, CAD, CVA, CHF, PAD or KALIN. She is compliant with low sodium diet and is compliant with her medications. She had a 24 hour BPM which showed controlled BP most of the time except for some spikes AM. She feels well. [facility] Medical History (Updated 10/28/24 @ 14:28 by Allen Cole MD) History of osteoporosis Broken arm Vitamin D deficiency Urinary incontinence Rib fracture Osteoarthritis HTN (hypertension) Bilateral cataracts Low back pain potentially associated with radiculopathy Parkinson's disease Surgical History History of esophagogastroduodenoscopy (EGD) H/O shoulder surgery Social History Household Members Other:: lives alone Alcohol intake: never Patient Tobacco Use Status: Never used Tobacco Review of Systems Const All systems reviewed & are unremarkable except as noted in HPI and below Physical Exam Vital Signs: Last Vital Signs Pulse 82 11/06/24 15:13 BP 120/62 11/06/24 15:13 Pulse Ox 94 11/06/24 15:13 Oxygen Delivery Method Room Air 11/06/24 15:13 BMI result Body Mass Index 29.5 Const General: comfortable and no acute distress Orientation/consciousness: patient oriented x3 HEENT Head: Yes normocephalic Mouth: Normal oral and palatal mucosa present Eyes EOM: EOMs intact bilaterally Neck Neck: Yes supple Resp Auscultation: clear to auscultation bilaterally Cardio Jugular venous distension: no JVD Rate: regular rate GI Palpation (GI): Soft to palpation Auscultation: normal bowel sounds General: Yes no CVA tenderness Back/Spine/Pelvis Back: no CVA tenderness Skin General skin exam: no rashes or lesions noted Neuro General: patient oriented x3 and moves all extremities Extrem General: Yes no pedal edema Results Reviewed Nephrology Results: No Data to Display Assessment & Plan Assessment & Plan (1) Labile hypertension: Code(s): R09.89 - Other specified symptoms and signs involving the circulatory and respiratory systems Category: Medical Plan Low sodium diet. Continued life style modifications Serum K and renal function normal; C/W current dose of lisinopril @ night 24 hour ambulatory blood pressure monitor reviewed today No dose changes in medication made today; All questions answered Further management is pending evolving data; F/U given Coding Level of Care Code Est Pt Level 4 (87615) Diagnoses Labile hypertension R09.89
[2024-11-06 15:13] VITALS: BP 120/62; PULSE 82; O2SAT 94; BMI 29.5
--- OUTSIDE RECORDS SUMMARY | 2024-11-06 16:53 | XMS_ITS | Patient Health Record ---
Author Organization [facility] [place] Address [address] [place] [address] Care Team Providers Care Epitaxial Reactor Technician Name Role Phone Petra De La O Primary Care Provider Unavailab Mark Smith Unavailable [phone] Allergies Allergen (clinical drug ingredient) Drug/Non Drug Allergy documented on EMR Reaction Allergy Type Onset Date Status Substance with sulfonamide structure and antibacterial mechanism of action (substance) Sulfa Antibiotics Unknown Drug Allergy Active Reason For Referral No Information Medications Medication SIG (Take, Route, Frequency, Duration) Notes Start Date End Date Status Calcium Citrate 200 MG as directed Orally Active Neosporin 500-36705 UNIT/GM 1 application as needed Externally Once [...] Problem Acquired hammer toe of right foot (8172056847054078) Other hammer toe(s) (acquired), right foot (M20.41) Active confirmed Problem Acquired hammer toe of left foot (3589558916361013) Other hammer toe(s) (acquired), left foot (M20.42) Active confirmed Problem Gout (74506554) Gout of left teresa t (M10.9) Active confirmed Problem 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 Problem Intermittent claudication (08431096) Intermittent claudication (I73.9) Active confirmed Problem Atherosclerosis of [place] arteries of the extremities (096189107002471) Atherosclerosis of [place] artery of both lower extremities, with unspecified presence of clinical manifestation (I70.203) Active confirmed Vital Signs Blood pressure diastolic 60 mm Hg 07/10/2024 Height 4 ft 11 in in 10/13/2024 Blood pressure systolic 150 mm Hg 07/10/2024 Weight 150 lbs 10/13/2024 BMI 30.29 kg/m2 10/13/2024 Procedures Procedure Date Ordered Date Performed Result Body Sit e 63598-KHOBVKA NAIL, 6 OR MORE 11/15/2023 N/A 29102-FZZPUVU SKIN/TISSUE 11/15/2023 N/A 11200-UMFA SKIN LESIONS, OVER 4 11/15/2023 N/A 83810-BXPPVBK NAIL, 6 OR MORE 01/28/2024 N/A 00681- Debride <25 sq cm 01/28/2024 N/A 60689-SYWM SKIN LESIONS, OVER 4 01/28/2024 N/A 71986-VPNBANS NAIL, 6 OR MORE 04/07/2024 N/A 40837-NWZW SKIN LESIONS, OVER 4 04/07/2024 N/A 96912-OZGUDFK NAIL, 6 OR MORE 07/10/2024 N/A 25613-BLFX SKIN LESIONS, OVER 4 07/10/2024 N/A 86226-ANUUBBU NAIL, 6 OR MORE 10/13/2024 N/A 52929-SYKJ SKIN LESIONS, OVER 4 10/13/2024 N/A Encounters Encounter Location Date Provider Diagnosis [address] [address] 11/15/2023 Mark Azar Atherosclerosis of [place] artery of both lower extremities, with unspecified [...] left foot with fat layer exposed L97.[address] [address] 01/28/2024 Mark Azar Atherosclerosis of [place] artery of both lower extremities, with unspecified [...] foot, limited to breakdown of skin L97.[address] [address] 04/07/2024 Mark Azar Atherosclerosis of [place] artery of both lower extremities, with unspecified presence of clinical manifestation I70.203 ; Onychomycosis B35.1 ; Pain of toe of right foot M79.674 ; Pain of toe of left foot M79.675 and Skin ulcer of toe of left foot, limited to breakdown of skin L97.[address] [address] 07/10/2024 Mark Azar Atherosclerosis of [place] artery of both lower extremities, with unspecified presence of clinical manifestation I70.203 ; Onychomycosis B35.1 ; Pain of toe of right foot M79.674 ; Pain of toe of left foot M79.675 ; Other hammer toe(s) (acquired), right foot M20.41 and Other hammer toe(s) (acquired), left foot M20.42 [facility] [place] [address] [address] 10/13/2024 Mark Azar Atherosclerosis of [place] artery of both lower extremities, with unspecified presence of clinical manifestation I70.203 ; Onychomycosis B35.1 ; Pain of toe of right foot M79.674 and Pain of toe of left foot M79.675 Assessments Encounter Date Diagnosis (ICD Code) Assessment Notes Treatment Notes Treatment Clinical Notes Section Notes 11/15/2023 Onychomycosis (ICD-10 - B35.1) 11/15/2023 Atherosclerosis of [place] artery of both lower extremities, with unspecified presence of clinical manifestation (ICD-10 - I70.203) 01/28/2024 Onychomycosis (ICD-10 - B35.1) 01/28/2024 Atherosclerosis of [place] artery of both lower extremities, with unspecified presence of clinical manifestation (ICD-10 - I70.203) 04/07/2024 Onychomycosis (ICD-10 - B35.1) 04/07/2024 Atherosclerosis of [place] artery of both lower extremities, with unspecified presence of clinical manifestation (ICD-10 - I70.203) 07/10/2024 Onychomycosis (ICD-10 - B35.1) 07/10/2024 Atherosclerosis of [place] artery of both lower extremities, with unspecified presence of clinical manifestation (ICD-10 - I70.203) 10/13/2024 Onychomycosis (ICD-10 - B35.1) 10/13/2024 Atherosclerosis of [place] artery of both lower extremities, with unspecified [...] Treatment Pending Test Test Name Order Date 61072-YXELQZF NAIL, 6 OR MORE 10/25/2020 02454-MNEKNUN NAIL, 6 OR MORE 01/12/2021 83736-QMBNIEF NAIL, 6 OR MORE 04/11/2021 61258-VMDGLPL NAIL, 6 OR MORE 07/18/2021 12246-GMCTUKT NAIL, 6 OR MORE 09/26/2021 58879-GZBSCSO NAIL, 6 OR MORE 11/28/2021 29650-KKKXDXR NAIL, 6 OR MORE 02/06/2022 11006-OTMONEA NAIL, 6 OR MORE 04/27/2022 63992-XZRNOXN NAIL, 6 OR MORE 07/20/2022 10576-CNGFCKO NAIL, 6 OR MORE 09/28/2022 69545-TLUGBOY NAIL, 6 OR MORE 12/28/2022 49090-EQNUZCU NAIL, 6 OR MORE 03/22/2023 77186-PHDKNIE NAIL, 6 OR MORE 06/21/2023 23844-EXBFASJ NAIL, 6 OR MORE 11/15/2023 13242-TGUMWLS NAIL, 6 OR MORE 01/28/2024 61333-RLNHSWL NAIL, 6 OR MORE 04/07/2024 63302-UBHLJKB NAIL, 6 OR MORE 07/10/2024 37987-PNOZGLI NAIL, 6 OR MORE 10/13/2024 18386- Debride <25 sq cm 01/28/2024 58455-HYKRTPR SKIN/TISSUE 11/15/2023 55422-PXVH SKIN LESIONS, OVER 4 04/07/20 24 20230-WRSR SKIN LESIONS, OVER 4 01/28/20 24 62673-APHD SKIN LESIONS, OVER 4 11/15/19 24 17124-MBBG SKIN LESIONS, OVER 4 10/14/19 25 49683-SBMS SKIN LESIONS, OVER 4 07/10/19 60642-BQJH SKIN LESIONS, OVER 4 06/21/20 23 65575-MAUS SKIN LESIONS, OVER 4 03/22/20 23 97429-HVUK SKIN LESIONS, OVER 4 06/22/20 23 16568-EISZ SKIN LESIONS, OVER 4 09/29/19 81865-WUNF SKIN LESIONS, OVER 4 07/20/19 Next Appt Details Provider Name:Mark Azar , 01/14/2025 11:30:00 AM, [address] [facility], [address], [place], [address], Insurance Providers Payer Name Payer Address Payer Phone Subscriber Number Group Number Insured Name Patient Relationship to Insured Coverage Start Date Coverage End Date [facility] [employer] Claims [address] EM[place] Omer [id number] Fatou Dennison Self - patient is the insured Medical (General) History Medical History History ICD Code Arthritis Back pain Cataracts chest pain Hypertension, benign Osteoporosis Parkinsons disease Vitamin D deficiency Surgical History Surgery Date(Month/Year) Hospitalization History Reason Date(Month/Year) [facility] - Fall, then rehab facility 07/31/23 [facility]- chest pain, high blood pressure 02/07
--- OUTSIDE RECORDS SUMMARY | 2024-11-06 16:53 | XMS_ITS | Encounter Summary ---
Author Organization [facility] Address [address] [place] [address] Care Team Providers Care Opto Mechanical Technician Name Role Phone Petra Hernandez Primary Care Provider [phone] Reason for Referral * Imaging (Routine) - Pending Review Specialty Diagnoses / Procedures Referred By Contac t Referred To Contact Radiology Diagnoses Subclinical hyperthyroidism Multiple thyroid nodules Procedures US Head Neck Soft Tissue Neli Dexter PA [address] [place] [address] Phone: tel: fax: [address] Phone: tel: Referral ID Status Reason Start Date Expiration Date V isits Requested Visits Authorized [id number] Pending Review 08/05/2024 08/05/2025 1 1 Reason for Visit * Imaging (Routine) - Pending Review Specialty Diagnoses / Procedures Referred By Contac t Referred To Contact Radiology Diagnoses Subclinical hyperthyroidism Multiple thyroid nodules Procedures US Head Neck Soft Tissue Neli Dexter PA [address] [place] [address] Phone: tel: fax: [address] Phone: tel: Referral ID Status Reason Start Date Expiration Date V isits Requested Visits Authorized [id number] Pending Review 08/05/2024 08/05/2025 1 1 Encounter Details Date Type Department Care Team (Latest Contact Info) Description 11/03/2024 9:54 AM EDT - 11/03/2024 11:59 PM EDT Hospital Encounter Radiology Department - [address] [address] Subclinical hyperthyroidism; Multiple thyroid nodules Discharge Disposition: Home or Self Care Social History Tobacco Use Types Packs/Day Years Used Date Smoking Tobacco: Never Smokeless Tobacco: Never Alcohol Use Standard Drinks/Week Comments Not Currently 0 (1 standard drink = 0.6 oz pur e alcohol) Comments Unknown Sex and Gender Information Value Date Recorded Sex Assigned at Not on file Legal Sex Female 9:17 PM EST Gender Identity Not on file Sexual Orientation Not on file documented as of this encounter Medications at Time of Discharge alendronate (FOSAMAX) 70 mg tablet Sig - Route: Take 1 Tablet by mouth every 7 days. 05/08/2024 calcium citrate (CALCITRATE) 950 mg (200 mg elemental calcium) tablet Take 1 tablet (950 mg total) by mouth 1 (one) time each day. 05/08/2024 carbidopa-levodo pa (SINEMET) 25-100 mg per tablet Take 1 tablet by mouth 3 (three) times a day. cholecalciferol (VITAMIN D-3) 50 mcg (2,000 unit) tablet Take by mouth. diclofenac (VOLTAREN) 1 % topical gel Sig - Route: Apply 1 Tube topically as needed. 04/08/2024 famotidine (PEPCID) 20 mg tablet Take 1 tablet (20 mg total) by mouth 2 (two) times a day. 05/08/2024 gabapentin (NEURONTIN) 100 mg capsule Take 1 capsule (100 mg total) by mouth 1 (one) time each day. 05/08/2024 latanoprost (XALATAN) 0.005 % ophthalmic solution Sig - Route: apply to the eye. Both eyes 05/08/2024 lisinopriL (PRINIVIL,ZESTRI L) 5 mg tablet Take 1 tablet (5 mg total) by mouth 1 (one) time each day. 05/08/2024 meclizine (ANTIVERT) 25 mg tablet Chew 1 tablet (25 mg total) if needed. 04/08/2024 methIMAzole (TAPAZOLE) 5 mg tablet TAKE ONE TABLET BY MOUTH EVERY DAY 30 tablet 6 10/17/2024 mirabegron (MYRBETRIQ) 25 mg 24 hr tablet Mirabegron ER 25 MG TABLET SR 24 HR-Sig - Route: Take 25 mg by mouth. pramipexole (MIRAPEX) 0.5 mg tablet Take 1 tablet (0.5 mg total) by mouth 3 (three) times a day. rasagiline (AZILECT) 1 mg tablet Take by mouth. 05/08/2024 torsemide (DEMADEX) 5 mg tablet Take 1 tablet (5 mg total) by mouth 1 (one) time each day. 05/08/2024 documented as of this encounter Discharge Disposition Disposition Code Departure Means Destination Home or Self Care documented in this encounter Plan of Treatment Upcoming Encounters Date Type Department Care Team (Late st Contact Info) Description 11/20/2024 9:40 AM EDT Office Visit Endocrinology - [place] [address] [place] [address] Neli Dexter PA [address] [place] [address] documented as of this encounter Procedures Procedure Name Priority Date/Time Associated Diagnosis Comments US HEAD NECK SOFT TISSUE Routine 11/03/2024 10:56 AM EDT Subclinical hyperthyroidism Multiple thyroid nodules documented in this encounter Results * US Head Neck Soft Tissue (11/03/2024 10:56 AM EDT) Anatomical Region Laterality Modality Head and Neck Ultrasound 11/03/2024 2:36 PM EDT Impressions 11/03/2024 2:49 PM EDT 1. ??Multiple overall stable thyroid nodules. ??Some nodules were not seen on prior examination -------- FINAL REPORT -------- Dictated By: Celestine Beyer Dictated Date: 11/03/2024 14:36 ET Assigned Physician: Celestine Beyer Reviewed and Electronically Signed By: Celestine Beyer Signed Date: 11/03/2024 14:49 ET Workstation ID: [id number] Transcribed By: Self Edit Transcribed Date: 11/03/2024 14:36 ET Narrative 11/03/2024 2:49 PM EDT Exam: Thyroid ultrasound. HISTORY: Thyroid nodule COMPARISON: Ultrasound thyroid from 12/31/2023 Technique: Grayscale and Doppler images of the thyroid gland were obtained. FINDINGS: The thyroid gland is normal in size. The right lobe measures 4.1 x 2.4 x 1.9 cm. The left lobe measures 4.9 x 2.6 x 2.3 cm. The thyroid isthmus is prominent in size and measures 0.9 cm. The thyroid parenchyma is heterogenous Right Lobe: Upper pole--1.1 x 1.0 x 1.1 cm solid and cystic heterogeneous nodule, grossly stable Upper pole--1.3 x 1.0 x 1.1 cm isoechoic solid heterogeneous nodule, grossly stable Midpole--1.2 x 0.6 x 1.0 cm solid and cystic heterogeneous nodule Left Lobe: [place]pole--1.7 x 1.4 x 1.6 cm solid hypoechoic heterogeneous nodule with cystic areas, previously measuring 1.8 x 1.2 x 1.1 cm Lower pole--1.2 x 1.0 x 1.3 cm hypoechoic solid nodule Lower pole--1.0 x 0.8 x 0.7 cm hypoechoic solid nodule Isthmus: 1.6 x 1.3 x 1.5 cm hypoechoic solid nodule previously measuring 1.2 x 1.1 x 1.2 cm. ??This is likely stable when remeasured. Lower isthmus--0.9 x 0.7 x 0.6 cm hypoechoic solid nodule 0.8 x 0.5 x 0.9 cm cystic nodule with multiple septations Procedure Note Celestine Beyer MD - 11/03/2024 Exam: Thyroid ultrasound. HISTORY: Thyroid nodule COMPARISON: Ultrasound thyroid from 12/31/2023 Technique: Grayscale and Doppler images of the thyroid gland wereobtained. FINDINGS: The thyroid gland is normal in size. The right lobe measures 4.1 x 2.4 x1.9 cm. The left lobe measures 4.9 x 2.6 x 2.3 cm. The thyroid isthmus isprominent in size and measures 0.9 cm. The thyroid parenchyma isheterogenous Right Lobe: Upper pole--1.1 x 1.0 x 1.1 cm solid and cystic heterogeneous nodule,grossly stable Upper pole--1.3 x 1.0 x 1.1 cm isoechoic solid heterogeneous nodule,grossly stable Midpole--1.2 x 0.6 x 1.0 cm solid and cystic heterogeneous nodule Left Lobe: [place]--1.7 x 1.4 x 1.6 cm solid hypoechoic heterogeneous nodule withcystic areas, previously measuring 1.8 x 1.2 x 1.1 cm Lower pole--1.2 x 1.0 x 1.3 cm hypoechoic solid nodule Lower pole--1.0 x 0.8 x 0.7 cm hypoechoic solid nodule Isthmus: 1.6 x 1.3 x 1.5 cm hypoechoic solid nodule previously measuring 1.2 x 1.1x 1.2 cm. This is likely stable when remeasured. Lower isthmus--0.9 x 0.7 x 0.6 cm hypoechoic solid nodule 0.8 x 0.5 x 0.9 cm cystic nodule with multiple septations IMPRESSION: 1. Multiple overall stable thyroid nodules. Some nodules were not seenon prior examination -------- FINAL REPORT -------- Dictated By: Celestine Beyer Dictated Date: 11/03/2024 14:36 ET Assigned Physician: Celestine Beyer Reviewed and Electronically Signed By: Celestine Beyer Signed Date: 11/03/2024 14:49 ET Workstation ID: [id number] Transcribed By: Self Edit Transcribed Date: 11/03/2024 14:36 ET us Neli DIAZ IMRamon US PROCEDURES Final Result documented in this encounter Visit Diagnoses Diagnosis Subclinical hyperthyroidism Thyrotoxicosis without mention of goiter or other cause, without mention of thyrotoxic crisis or storm Multiple thyroid nodules Nontoxic multinodular goiter documented in this encounter Care Teams Opto Mechanical Technician Relationship Specialty Start Date End Date Petra Hernandez [address] [place] [address] PCP - General 03/05/24 documented as of this encounter
--- OUTSIDE RECORDS SUMMARY | 2024-11-06 16:54 | XMS_ITS ---
Author Organization [facility] Address [address] [facility] [place] [address] Care Team Providers Care Health Care Attorney Name Role Phone Petra De La O Primary Care Provider UnavailMark Wylie Unavailable [phone] Allergies Allergen (clinical drug ingredient) Drug/Non Drug [...] water Orally for 30 day(s) Active Neosporin 500-99415 UNIT/GM 1 application as needed Externally Once [...] Problem Acquired hammer toe of right foot (7963267552945 105) Other hammer toe(s) (acquired), right foot (M20.41) Active confirmed Problem Acquired hammer toe of left foot (3727702391780 103) Other hammer toe(s) (acquired), left foot (M20.42) Active confirmed Vital Signs Height 4 ft 11 in in 07/10/2024 Weight 150 lbs 07/10/2024 BMI 30.29 kg/m2 07/10/2024 Blood pressure systolic 150 mm Hg 07/10/19 25 Blood pressure diastolic 60 mm Hg 025 Procedures Procedure Date Ordered Date Performed Result Body Sit e 47195-THPHDSZ NAIL, 6 OR MORE 07/10/2024 N/A 56396-DPEE SKIN LESIONS, OVER 4 07/10/2024 N/A Encounters Encounter Location Date Provider Diagnosis [facility] [address] [address] 07/10/2024 Mark Azar Atherosclerosis of [place] artery of both lower extremities, with unspecified [...] Clinical Notes Section Notes 07/10/2024 Atherosclerosis of [place] artery of both lower extremities, with unspecified [...] 07/10/2024 Pending Test Test Name Order Date 05898-VROATGG NAIL, 6 OR MORE 07/10/2024 96766-DONS SKIN LESIONS, OVER 4 07/10/19 25 Next Appt Details Follow Up: 2 Months, Reason: Provider Name:Mark Azar , 01/14/2025 11:30:00 AM, [address] , [address], [place], [address], Procedure Notes * Category Sub-Category Detail Notes [...] use of a nail nipper and/or dremel-type blanchard grinder operator, to a more viable healthy [...] to maintain effectiveness in symptomatic relief - 16190 Keratoma Treatment Parring or Cutting o f [...] instrumentation by the physician of record - 23102, Q8 Progress Notes * Andrews JACQUESaDOB:[birth year] (78 yo F)Acc No.[id number]:07/10/2024 Progress Note Patient:?SAWYER Lydiajuan barker Provider:?Mark Azar DPM :1945???Age:78 Y???Sex:Female D ate:07/10/2024 Address:[address] [place], [place] [id number] Pcp:Petra De La O Subjective: * Chief [...] Externally to feet Twice a day Neosporin 500-98765 UNIT/GM Ointment 1 application as needed Externally [...] to feet Twice a day Taking Neosporin 500-60621 UNIT/GM Ointment 1 application as needed Externally [...] no acute distress, Pt accompanied by, Female, CONDUCTOR AND ENGINEER, who serves as, Chicken Buyer/Manager Product, and/who is physically present in exam room [...] * Assessment: 1.?Onychomycosis - B35.1???2 .?Atherosclerosis of [place] artery of both lower extremities, with unspecified presence of clinical manifestation - I70.203 (Primary)???3.?Pain of toe of right foot - M79.674???4.?Pain of toe of left foot - M79.675???5.?Other hammer toe(s) (acquired), right foot - M20.41???Specify :Chronic problem, Worse (4),Rx Management (4)???6.?Other hammer toe(s) (acquired), left foot - M20.42???Specify :Chronic problem, Worse (4),Rx Management (4)??? Plan: * Treatment: 2.?Onychomycosis?Procedure: 65465-VFHZMUM NAIL, 6 OR MORE 3.?Other hammer toe(s) [...] use of a nail nipper and/or dremel-type blanchard grinder operator, to a more viable healthy [...] to maintain effectiveness in symptomatic relief - 86303.?Keratoma Treatment:?Parring or Cutting of Benign Hyperkeratotic Lesion(s)?(-57) [...] instrumentation by the physician of record - 15575, Q8.? * Procedure Codes:?92539 DEBRI DE NAIL, 6 OR MORE, Modifiers: XS 55320 TRIM SKIN LESIONS, OVER 4, Modifiers: XS [...] Azar DPM Date:?2024 Generated for Jesus harden/Claudia/Alirio on:?11/06/2024 04:53 PM EDT History and Physical Notes * [...] no acute distress, Pt accompanied by, Female, CONDUCTOR AND ENGINEER, who serves as, Chicken Buyer/Manager Product, and/who is physically present in exam room [...]
--- OUTSIDE RECORDS SUMMARY | 2024-11-06 16:54 | XMS_ITS | Data Portability ---
Author Organization [place] - [facility], [facility] Address [address] [place] [address] Assessment Encounter Date Assessment Date Assessment LastModified by Organization Details LastModified Time 02/15/2024 02/15/2024 Pt tolerated rx well. Fatigued quickly with strengthening exercises, able to progress strengthening as charted. Increase AROM flexion against gravity, endurance improving. Cont c POC, progress as tolerated. [email or web address] Not available 02/15/2024 11:27:11 02/18/2024 02/18/2024 Pt [...] muscules. Cont c POC, progress as tolerated. [email or web address] Not available 02/20/2024 11:56:14 02/26/2024 02/26/2024 Pt tolerated rx well. Able to complete full program without c/o onset of pain. Improved ease with functional strengthening, able to increase repetitions with appropriate fatigue noted. Continues with difficulty performing overhead motions. Anticipated DC next visit. Update HEP. [email or web address] Not available 02/26/2024 10:28:46 03/07/2024 03/07/2024 Pt tolerated rx well. Able to complete full program without c/o onset of pain. improved reaching height overhead. Continue to fatigue with overhead reaching. ROM WFL. Pt reporting minimal functional complaints besides limitations overhead. Encouraged to continue with ther ex and f/u with any concerns. DC to ind HEP. 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 Procedures Surgical History Date Name Laterality Status Provider Name and Address Organization Details Recorded Time 4 43680 Therapeutic Exercise (1:1) completed Elizabet Franklin DPT [address], [place], [address], [facility] 01/25/2024 08:51:06 4 48394: Hot or Cold Pack completed Elizabet Franklin DPT [address], [place], [address], [facility] 01/25/2024 08:51:06 4 68938: Manual therapy completed Elizabet Franklin DPT [address], [place], [address], [facility] 01/25/2024 11:17:58 4 47886 Therapeutic Exercise (1:1) completed Saima Martin BOXING TRAINER [address], [place], [address], [facility] 01/21/2024 09:03:55 4 94930: Hot or Cold Pack completed Saima Martin BOXING TRAINER [address], [place], [address], [facility] 01/22/2024 13:27:25 4 73807: Manual therapy completed Saima Martin BOXING TRAINER [address], [place], [address], [facility] 01/21/2024 09:03:55 4 02810 Therapeutic Exercise (1:1) completed Elizabet Franklin DPT [address], [place], [address], [facility] 01/18/2024 11:41:16 4 78519: Hot or Cold Pack completed Elizabet Franklin DPT [address], [place], [address], [facility] 01/18/2024 11:37:04 4 57872: Manual therapy completed Elizabet Franklin DPT [address], [place], [address], [facility] 01/18/2024 11:40:56 4 87451 Therapeutic Exercise (1:1) completed Saima Martin BOXING TRAINER [address], [place], [address], [facility] 01/14/2024 13:29:51 4 69398: Hot or Cold Pack completed Saima Martin, BOXING TRAINER [address], [place], [address], [facility] 01/14/2024 13:29:51 4 69511: Manual therapy completed Saima Martin BOXING TRAINER [address], [place], [address], [facility] 01/14/2024 13:29:51 4 82327 Therapeutic Exercise (1:1) completed Elizabet Franklin DPT [address], [place], [address], [facility] 01/09/2024 11:36:10 4 74178: Hot or Cold Pack completed Elizabet Franklin DPT [address], [place], [address], [facility] 01/09/2024 11:36:10 4 76723: Manual therapy completed Elizabet Franklin DPT [address], [place], [address], [facility] 01/09/2024 11:36:10 4 24894 Therapeutic Exercise (1:1) completed Saima Martin PTA [address], [place], [address], [facility] 01/04/2024 09:15:47 4 03488: Hot or Cold Pack completed Saima Martin PTA [address], [place], [address], [facility] 01/03/2024 15:22:51 4 51020: Manual therapy completed Saima Martin PTA [address], [place], [address], [facility] 01/04/2024 09:15:18 4 27492 Therapeutic Exercise (1:1) completed Saima Martin PTA [address], [place], [address], [facility] 01/02/2024 09:05:38 4 42750: Hot or Cold Pack completed aSima Martin PTA [address], [place], [address], [facility] 01/02/2024 09:05:45 4 25535: Manual therapy completed Saima Martin BOXING TRAINER [address] [facility], [place], [address], [facility] 01/02/2024 09:05:27 4 06083 Therapeutic Exercise (1:1) completed Elizabet Franklin DPT [address] [facility], [place], [address], [facility] 12/28/2023 08:59:50 4 47532: Hot or Cold Pack completed Elizabet Franklin DPT [address] [facility], [place], [address], [facility] 12/28/2023 08:54:23 4 38168: Manual therapy completed Elizabet Franklin DPT [address] [facility], [place], [address], [facility] 12/28/2023 08:59:58 4 77441 Therapeutic Exercise (1:1) completed Elizabet Franklin DPT [address] [facility], [place], [address], [facility] 12/24/2023 20:19:36 4 41180: Low complexity PT Eval completed Elizabet Franklin DPT [address] [facility], [place], [address], [facility] 12/24/2023 20:20:07 Imaging Results None recorded. Procedure Notes None recorded. Medical Equipment None Reported. Allergies Allergen ID Allergen Name Allergen Category Reaction Reaction Severity Criticality Documentation Date Start Date Code Code System Note Provider Name and Address Organization Details Recorded Time 45193 Substance with sulfonami de structure and antibacte rial mechanism of action (substanc e) medicatio n Not available Not available Not available 09/10/20232013 72444 8003 SNOMED Not Available [facility] 12:19:33 Medications Name Sig Start Date Stop [...] SNOMED-CT Code Diagnosis ICD10 Code Diagnosis Note [id number] Eve Alegre PA-C [facility] [address] [place] [address] 10/02/2023 14:28:20 10/02/2023 15:31:10 Pain in left arm 044059521 M79.555 [id number] Eve Alegre PA-C [facility] [address] [place] [address] 12/05/2023 09:24:45 12/26/2023 13:45:13 Closed fracture of proximal left humerus 6297157855 6653363 S4.A [id number] [facility] [address] [place] [address] 12/25/2023 11:28:24 12/25/2023 12:37:12 Closed fracture of proximal left humerus 5857260960 1525190 S42.D [id number] Elizabet Franklin DPT [facility] [address] [place] [address] 12/28/2023 08:32:26 12/28/2023 09:23:50 Closed fracture of proximal left humerus 3979625784 4270811 S42.D [id number] Saima Martin PTA [facility] [address] [place] [address] 01/02/2024 08:28:53 01/02/2024 09:33:10 Closed fracture of proximal left humerus 1378822455 1072614 S42.D [id number] Saima Martin PTA [facility] [address] [place] [address] 01/04/2024 08:27:52 01/04/2024 09:21:04 Closed fracture of proximal left humerus 1133312080 2492774 S42.D [id number] Elizabet Franklin DPT [facility] [address] [place] [address] 01/09/2024 11:26:15 01/09/2024 12:37:59 Closed fracture of proximal left humerus 7984836138 9595805 S42.D [id number] Saima Martin PTA [facility] [address] [place] [address] 01/15/2024 11:22:33 01/15/2024 12:19:32 Closed fracture of proximal left humerus 5864508076 5449206 S42.D [id number] Elizabet Franklin DPT [facility] [address] [place] [address] 01/18/2024 10:36:13 01/18/2024 11:45:34 Closed fracture of proximal left humerus 9661282288 1010544 S42.D [id number] [facility] [address] [place] [address] 01/22/2024 11:31:29 01/22/2024 13:44:41 Closed fracture of proximal left humerus 6845424129 6399901 S42.D [id number] Elizabet Franklin DPT [facility] [address] [place] [address] 01/25/2024 10:55:04 01/25/2024 13:39:52 Closed fracture of proximal left humerus 2055863949 5717721 S42.D [id number] [facility] [address] [place] [address] 01/29/2024 10:50:21 01/29/2024 12:05:08 Closed fracture of proximal left humerus 1871348032 7353992 S42.D [id number] Saima Martin PTA [facility] [address] [place] [address] 02/01/2024 11:01:39 02/01/2024 12:06:08 Closed fracture of proximal left humerus 9432317997 3875919 S42.D [id number] Saima Martin PTA [facility] [address] [place] [address] 02/05/2024 11:00:41 02/05/2024 14:52:05 Closed fracture of proximal left humerus 7109828033 3352061 S42.D [id number] [facility] [address] [place] [address] 02/12/2024 11:24:25 02/12/2024 12:09:29 Closed fracture of proximal left humerus 3196875515 8127593 S42.202D [id number] Elizabet Franklin DPT [facility] [address] [place] [address] 02/15/2024 09:19:36 02/15/2024 11:27:49 Closed fracture of proximal left humerus 0308926922 4418960 S42.D [id number] Saima Martin, BOXING TRAINER [facility] [address] [place] [address] 02/18/2024 08:17:57 02/18/2024 09:23:03 Closed fracture of proximal left humerus 0851008158 6317828 S42.D [id number] THEO [facility]str[facility] [address] [place] [address] 02/20/2024 10:58:22 02/20/2024 11:56:52 Closed fracture of proximal left humerus 4998352255 3271056 S42.D [id number] Elizabet Franklin DPT [facility] [address] [place] [address] 02/26/2024 09:21:13 02/26/2024 10:29:20 Closed fracture of proximal left humerus 5724357065 8340976 S42.D [id number] THEO [facility]str[facility] [address] [place] [address] 03/07/2024 10:54:13 03/07/2024 11:48:03 Closed fracture of proximal left humerus 4830274192 6549164 S42.D Health Concerns Section Related Observation LastModified by Organization Detai ls LastModified Time None Recorded Concern Status LastModified by Organization Details LastModified Time None Recorded Advance Directives Directive None Recorded Payers Encounter Date Sequence Insurance Name Policy Number Policy Hu Covered Member ID Hu Member ID Guarantor Name 02/15/[address] [facility] - DOS ON OR AFTER 2022 - SKILLED NURSING OPTIONS AND ONE CARE (MEDICARE REPLACEMENT/AD VANTAGE - PPO) Fatou Kildisheva [id number] Fatou Kildisheva 02/18/2024 1 [facility] DOS ON OR AFTER 2022 - SKILLED NURSING OPTIONS AND ONE CARE (MEDICARE REPLACEMENT/AD VANTAGE - PPO) Fatou Kildisheva [id number] Fatou Kildisheva 02/20/2024 1 [facility] DOS ON OR AFTER 2022 - SKILLED NURSING OPTIONS AND ONE CARE (MEDICARE REPLACEMENT/AD VANTAGE - PPO) Fatou Kildisheva [id number] Fatou Kildisheva 02/26/2024 1 [facility] DOS ON OR AFTER 2022 - SKILLED NURSING OPTIONS AND ONE CARE (MEDICARE REPLACEMENT/AD VANTAGE - PPO) Fatou Kildisheva [id number] Fatou Kildisheva 03/07/2024 1 [facility] DOS ON OR AFTER 2022 - SKILLED NURSING OPTIONS AND ONE CARE (MEDICARE REPLACEMENT/AD VANTAGE - PPO) Fatou Kildisheva [id number] Fatou Kildisheva Notes Date Note Type Note Provider Name and Address Organization Details Recorded Time 02/15/2024 text/html Pt denies pain coming into therapy. Elizabet Franklin DPT [address], [place], [address], [facility] 02/15/2024 11:27:44 02/18/2024 text/html Pt denies pain coming into therapy. Still having trouble reaching into overhead cupboard.8min early Saima Martin, BOXING TRAINER [address], [place], [address], [facility] 02/18/2024 09:22:58 02/20/2024 text/html Pt denies pain coming into therapy. Reporting some difficulty washing hair or reaching into cabinet with anything more than a light dish. Elizabet Franklin DPT [address], [place], [address], [facility] 02/20/2024 11:56:48 02/26/2024 text/html Pt denies pain coming into therapy. Elizabet Franklin DPT [address] [facility] [address], [place], [address], [facility] 02/26/2024 10:29:13 03/07/2024 text/html Pt denies pain coming into therapy. Elizabet Franklin DPT [address], [place], [address], [facility] 03/07/2024 11:47:58 OBGyn Episode No OBEpisode recorded.
--- OUTSIDE RECORDS SUMMARY | 2024-11-06 16:54 | XMS_ITS | Clinical Summary ---
Author Organization [facility] [address] [place] [address] Address [address] [place] [address] Phone Care Team Providers Care Balloon Maker Name Role Phone Petra Hernandez Primary Care Provider [phone] Allergies Active Allergy Reactions Criticality Noted Date [...] MOUTH EVERY DAY 30 tablet 6 10/18/19 Active methIMAzole (TAPAZOLE) 5 mg tablet Sig - Route: Take 1 Tablet by mouth daily for 90 days 30 tablet 2 07/31/19 25 025 Discontinued Encounters Date Type Department Care Team Description 11/03/2024 9:54 AM EDT - 11/03/2024 11:59 PM EDT Hospital Encounter Radiology Department - [address] [address] Subclinical hyperthyroidism; Multiple thyroid nodules Discharge Disposition: Home or Self Care from Last 3 Months Social History Tobacco [...] 9:40 AM EDT Office Visit Endocrinology - [place] [address] [place] [address] Neli Dexter PA [address] [place] [address] Health Maintenance Due Date Last Done Comments [...] AM EDT Subclinical hyperthyroidism Multiple thyroid nodules from Last 3 Months Results * US Head Neck Soft Tissue [...] Signed Date: 11/03/2024 14:49 ET Workstation ID: [id number] Transcribed By: Self Edit Transcribed Date: 11/03/2024 [...] examination -------- FINAL REPORT -------- Dictated By: eClestine Beyer Dictated Date: 11/03/2024 14:36 ET Assigned Physician: Celestine Beyer Reviewed and Electronically Signed By: Celestine Beyer Signed Date: 11/03/2024 14:49 ET Workstation ID: [id number] Transcribed By: Self Edit Transcribed Date: 11/03/2024 14:36 ET us Neli DIAZ IMRamon US PROCEDURES Final Result from Last 3 Months Insurance * Guarantor: Fatou Hardin Account Type Relation to Patient Date of Phone Billing Address Personal/Family Self 1945 [address] [facility] [address] [place] [address] [facility] MEDICAID EM[place] SOLIS [id number] Care Teams Balloon Maker Relationship Specialty Start Date End Date Petra Hernandez [address] [place] [address] PCP - General 03/05/24
--- OUTSIDE RECORDS SUMMARY | 2024-11-06 16:54 | XMS_ITS ---
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 Problem Gout (64571978) Gout of left foot (M10.9) Active confirmed Vital Signs Height 4 ft 11 in in 04/07/2024 Weight 144 lbs 04/07/2024 BMI 29.08 kg/m2 04/07/2024 Procedures Procedure Date Ordered Date Performed Result Body Sit e 74970-DSRYNIR NAIL, 6 OR MORE 04/07/2024 N/A 97752-CPPX SKIN LESIONS, OVER 4 04/07/2024 N/A Encounters Encounter Location Date Provider Diagnosis [facility] [address] [address] 04/07/2024 Mark Azar Atherosclerosis of seneca artery of both lower extremities, with unspecified presence of clinical manifestation I70.203 ; Onychomycosis B35.1 ; Pain of toe of right foot M79.674 ; Pain of toe of left foot M79.675 and Skin ulcer of toe of left foot, limited to breakdown of skin L97.521 Assessments Encounter Date Diagnosis (ICD Code) Assessment Notes Treatment Notes Treatment Clinical Notes Section Notes 04/07/2024 Atherosclerosis of seneca artery of both lower extremities, with unspecified [...] Treatment Pending Test Test Name Order Date 14892-LJGDCAW NAIL, 6 OR MORE 04/07/2024 78614-FDLZ SKIN LESIONS, OVER 4 04/07/20 24 Next Appt Details Follow Up: 2 Months, Reason: Provider Name:Mark Azar , 01/14/2025 11:30:00 AM, [address] [facility], [place] [address], [place], [address], Procedure Notes * Category Sub-Category Detail Notes Debride Nail 6-10 Nail debridement Performance o f this nail treatment by a nonprofessional would put this patients foot and overall health at risk. Therefore, nail debridement was performed extensively to reduce/remove overall nail length, girth, thickness, subungual debris, and necrotic tissue, by manual and/or electrical means through the use of a nail nipper and/or dremel-type seater grinder, to a more viable healthy nail plate or bed tissue 6-10. Silver nitrate used for any petechial bleeding as necessary. Definitive antifungal treatment options have been reviewed and discussed with the patient. The patient chooses, no pharmaceutical tx - 10243 Keratoma Treatment Parring or Cutting o f Benign Hyperkeratotic Lesion(s) (-57) More than 4 Lesions - The Benign hyperkeratotic lesions, as described above were pared, and/or cut utilizing a sterile 15 blade, tissue nippers, and/or dremel - 50017 , Q8 Progress Notes * Andrews JACQUESaDOB:[birth year] (78 yo F)Acc No.[id number]:04/07/2024 Progress Note Patient:?SAWYER Andrews lucero Provider:?Mark Azar DPM :1945???Age:78 Y???Sex:Female D ate:04/07/2024 Address:[address] [place], [place] [id number] Pcp:Petra De La O Subjective: * Chief [...] Externally to feet Twice a day Neosporin 500-58426 UNIT/GM Ointment 1 application as needed Externally [...] to feet Twice a day Taking Neosporin 500-36708 UNIT/GM Ointment 1 application as needed Externally [...] * Assessment: 1.?Onychomycosis - B35.1???2 .?Atherosclerosis of seneca artery of both lower extremities, with unspecified presence of clinical manifestation - I70.203???3.?Pain of toe of right foot - M79.674???4.?Pain of toe of left foot - M79.675 ??5.?Skin ulcer of toe of left foot, limited to breakdown of skin - L97.521???Specify :Acute problem, Stable (1=3),Response to treatment - Improvement??? Plan: * Treatment: 2.?Atherosclerosis of seneca artery of both lower extremities, with unspecified presence of clinical manifestation?Procedure: 91342-EFXF SKIN LESIONS, OVER 4 * Procedures:?Debride Nail 6-10:?Nail debridement?Performance of this nail treatment by a nonprofessional would put this patients foot and overall health at risk. Therefore, nail debridement was performed extensively to reduce/remove overall nail length, girth, thickness, subungual debris, and necrotic tissue, by manual and/or electrical means through the use of a nail nipper and/or dremel-type seater grinder, to a more viable healthy nail plate or bed tissue 6-10. Silver nitrate used for any petechial bleeding as necessary. Definitive antifungal treatment options have been reviewed and discussed with the patient. The patient chooses, no pharmaceutical tx - 71734.?Keratoma Treatment:?Parring or Cutting of Benign Hyperkeratotic Lesion(s)?(-57) More than 4 Lesions - The Benign hyperkeratotic lesions, as described above were pared, and/or cut utilizing a sterile 15 blade, tissue nippers, and/or dremel - 22842 , Q8.? * Procedure Codes:?85073 DEBRI DE NAIL, 6 OR MORE, Modifiers: XS 26925 TRIM SKIN LESIONS, OVER 4, Modifiers: XS [...] Azar DPM Date:?2023 Generated for Jesus harden/Claudia/Alirio on:?11/06/2024 04:54 PM EDT History and Physical Notes * [...]
--- OUTSIDE RECORDS SUMMARY | 2024-11-06 16:54 | XMS_ITS | Clinical Summary ---
Author Organization [facility] Address [address] [place] [address] Care Team Providers Care Shower Attendant Name Role Phone Petra Hernandez NP Primary Care Provider [phone] Source Comments PLEASE NOTE, if this patient [...] daily 90 Tablet 1 01/15/20 24 Active calcium citrate (CALCITRATE) 200 mg (950 mg) tabletIndications :Age related osteoporosis, unspecified pathological fracture presence Take 1 Tablet by mouth once daily 90 Tablet 1 01/21/20 24 Active carbidopa-levodop a (SINEMET) 25-100 mg per tabletIndications :Parkinson's disease without dyskinesia, unspecified whether manifestations fluctuate ([facility]) Take 2 Tablets by mouth 4 (four) [...] 5 07/30/19 25 Active MYRBETRIQ 25 mg El05Sseaihrmwlz:S tress incontinence TAKE ONE TABLET BY MOUTH [...] ^1R1,1R4 60 Tablet 2 10/21/19 25 Active alendronate (FOSAMAX) 70 mg tabletIndications :Age related osteoporosis, unspecified pathological fracture presence TAKE ONE TABLET BY MOUTH EVERY 7 DAYS (BULK) 13 Tablet 1 11/07/19 25 Active alendronate (FOSAMAX) 70 mg tabletIndications :Age related osteoporosis, unspecified pathological fracture presence Take 1 Tablet by mouth every 7 (seven) days 13 Tablet 1 01/21/20 24 025 Discontinued famotidine (PEPCID) 20 mg tabletIndications :Gastroesophageal reflux disease, unspecified whether esophagitis present TAKE ONE TABLET BY MOUTH TWICE A DAY ^1R1,1R4 60 Tablet 2 07/30/19 25 025 Discontinued Active Problems Problem Noted Date Diagnosed Date Prediabetes 01/22/2024 Obesity (BMI 30-39.9) 01/21/2024 Hyperthyroidism 01/21/2024 Overview (01/21/2024): 01/2024: Neli in [facility] next appt mar 05 Closed left humeral fracture 09/21/2023 Overview (09/21/2023): Occurred 07/30 after mechanical fall during OV visit at [facility]. Patient seen at [facility] afterwards; given a splint and sling. Has Ortho on October 01. History of vertebral fracture 09/21/2023 Overview (09/21/2023): Seen at [facility] on 08/04; has ortho October 01 [...] pain 04/27/2023 Compression fracture of lumbar vertebra (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) 04/27/2023 Overview (03/03/2024): 03/03/24: pt suffered a fall at home, she is with [facility] at [facility], next appt is 04/14/24 01/20/24: with [facility] at [facility], next appt 04/14/24. No falls since last visit. Lives alone, [facility] nurse visits weekly and [employer] daily by family member 10/2023: seen with domi, f/u 6 months Presence of dental prosthetic device 04/27/2023 Rib fracture 04/27/2023 Shoulder pain 04/27/2023 Stress incontinence of urine 04/27/2023 Vitamin D deficiency 04/27/2023 Resolved Problems Problem Noted Date Diagnosed Date Resolved Date Osteopenia 04/27/2023 03/18/2024 Upper respiratory infection 04/27/2023 05/28/2023 Encounters Date Type Department Care Team Description 10/06/2024 4:20 PM EDT Office Visit [address] [address] Petra Hernandez NP Vasylyshyn, Oksana Skin tag [...] Description 11/19/2024 11:20 AM EDT Office Visit [address] [address] Petra Hernandez NP [address] [place] [address] [place] [address] 11/24/2024 10:40 AM EDT Office Visit [address] [address] Rubén Arora, PharmD [address] [place] [address] [place] [address] 12/19/2024 11:00 AM EDT Office Visit [address] [address] Petra Hernandez, MILLER [address] [place] [address] Gaviota Pryor [address] [place] [address] Health Maintenance Due Date Last Done Comments Imm-DTaP/Tdap/Td (1 - Tdap) 12/16/1962 Imm-Pneumococcal 65+ (1 of 1 - PCV) 12/16/1993 Imm-Zoster, Recombinant (1 of 2) 12/16/1993 Bone Density Screening 12/16/2008 Vme-WIQGX-13 ( - 2023- season) 2024 Alcohol and Drug Screen 07/09/2024 03/18/20 24, 03/03/2024, 01/21/2024, Additional history exists Depression Annual Screen 07/09/2024 03/18/2024 Falls Prevention 09/20/2024 09/21/2023 Medicare Annual Wellness Visit 2024 12/18/2023 Imm-Influenza (#1) 2025 06/19/2017 Postponed from 03/09/2024 (Follow up visit) Tobacco Screening 01/20/2025 01/21/2024 Diabetes Screening 03/05/2025 03/05/2024, 0 01/21/2024, 01/21/2024, Additional history exists Procedures Procedure Name Priority Date/Time Associated Diagnosis Comments THYROID ULTRASOUND 11/03/2024 3: 00 AM EDT REFERRAL SCANNED DOCUMENT 10/28/2024 3:00 AM EDT REFERRAL SCANNED DOCUMENT 10/22/2024 3:00 AM EDT REFERRAL SCANNED DOCUMENT 10/03/2024 3:00 AM EDT HEMOGLOBIN GLYCOSYLATED A1C Routine 01/21/2024 9:45 AM EDT Obesity (BMI 30-39.9) Age related osteoporosis, unspecified pathological fracture presence Cramp in limb Parkinson's disease without dyskinesia, unspecified whether manifestations fluctuate ([facility]) Stress incontinence Hyperthyroidism from Last 3 Months or Most Recently Relevant to Health Maintenance Results * THYROID ULTRASOUND (11/03/2024 3:00 AM EDT) 11/03/2024 3:00 AM EDT us Millie De La O IMG CT Final Result * REFERRAL SCANNED DOCUMENT (10/28/2024 3:00 AM EDT) Only the most recent of3 resultswithin the time period is included. 10/28/2024 3:00 AM EDT us Millie De La O SCAN REFERRAL Final Result * (ABNORMAL) HEMOGLOBIN GLYCOSYLATED A1C (01/21/2024 9:45 AM EDT) HEMOGLOBIN A1C 6.1(H) <5.7 % of total Hgb [facility] Comment: For someone without known diabetes, a [...] AM EDT 01/21/2024 9:46 AM EDT Narrative [facility] - 01/22/2024 5:58 AM EDT FASTING:YES Petra Hernandez NP LAB - BLOOD DRAW Edited Resu lt - Final [facility] [address] [address], [facility] [address] [place] [address] from Last 3 Months or Most Recently Relevant to Health Maintenance Insurance [facility] Member Subscriber Plan / Payer (Ef fective 2023-Present) Name:Andrews riveraa Relation to Subscriber:Self Name:Lydia riveralana Payer ID:[id number] Group ID:Not on file Type:Indemnity Address: [address] [facility] [place] [address] Care Teams Shower Attendant Relationship Specialty Start Date End Date Petra Hernandez NP [address] [place] [address] PCP - General Internal Medicine 08/03/23
--- OUTSIDE RECORDS SUMMARY | 2024-11-06 16:54 | XMS_ITS ---
Author Organization [facility] Jennyfer Velasquez Address [address] [place] [address] Care Team Providers Care Hand Finisher Name Role Phone Petra De La O Primary Care Provider UnavailMark Wylie Unavailable [phone] Allergies Allergen (clinical drug ingredient) Drug/Non Drug [...] Daily for 365 days 07/10/2024 Active Neosporin 500-84296 UNIT/GM 1 application as needed Externally Once [...] Ordered Date Performed Result Body Sit e 52246-GAYBCXX NAIL, 6 OR MORE 10/13/2024 N/A 10077-MQXL SKIN LESIONS, OVER 4 10/13/2024 N/A Encounters Encounter Location Date Provider Diagnosis [facility] [address] [place] [address] 10/13/2024 Makr Azar Atherosclerosis of [place] artery of both lower extremities, with unspecified presence of clinical manifestation I70.203 ; Onychomycosis B35.1 ; Pain of toe of right foot M79.674 and Pain of toe of left foot M79.675 Assessments Encounter Date Diagnosis (ICD Code) Assessment Notes Treatment Notes Treatment Clinical Notes Section Notes 10/13/2024 Atherosclerosis of [place] artery of both lower extremities, with unspecified presence of clinical manifestation (ICD-10 - I70.203) 10/13/2024 Onychomycosis (ICD-10 - B35.1) 10/13/2024 Pain of toe of right foot (ICD-10 - M79.674) 10/13/2024 Pain of toe of left foot (ICD-10 - M79.675) 10/13/2024 Other Plan Of Treatment Pending Test Test Name Order Date 30473-PTNMSPH NAIL, 6 OR MORE 10/13/2024 84312-ZXYH SKIN LESIONS, OVER 4 10/14/19 25 Next Appt Details Follow Up: 2 Months, Reason: Provider Name:Mark Azar , 01/14/2025 11:30:00 AM, [address], [address], [place], [address], Procedure Notes * Category Sub-Category Detail Notes [...] use of a nail nipper and/or dremel-type steel grinder, to a more viable healthy nail [...] to maintain effectiveness in symptomatic relief - 95600 Keratoma Treatment Parring or Cutting o f [...] instrumentation by the physician of record - 15770, Q8 Progress Notes * Andrews JACQUESaDOB:[birth year] (78 yo F)Acc No.[id number]:10/13/2024 Progress Note Patient:?Andrews JACQUES Provider:?Mark Azar DPM :1945???Age:78 Y???Sex:Female D ate:10/13/2024 Address:[address] [facility] Pcp:Petra De La O Subjective: * Chief [...] exercise. ?Marital status: . 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 * Medications:?TakingAlendrona te Sodium 70 MG [...] Externally to feet Twice a day Neosporin 500-47024 UNIT/GM Ointment 1 application as needed Externally [...] to feet Twice a day Taking Neosporin 500-34317 UNIT/GM Ointment 1 application as needed Externally [...] * Assessment: 1.?Onychomycosis - B35.1???2 .?Atherosclerosis of [place] artery of both lower extremities, with unspecified presence of clinical manifestation - I70.203 (Primary)???Specify :Q8???3.?Pain of toe of right foot - M79.674???4.?Pain of toe of left foot - M79.675??? Plan: * Treatment: 2.?Onychomycosis?Procedure: 65795-CMWEGVE NAIL, 6 OR MORE * Procedures:?Debride Nail [...] use of a nail nipper and/or dremel-type steel grinder, to a more viable healthy nail [...] to maintain effectiveness in symptomatic relief - 71063.?Keratoma Treatment:?Parring or Cutting of Benign Hyperkeratotic Lesion(s)?(-57) [...] instrumentation by the physician of record - 78384, Q8.? * Procedure Codes:?38158 DEBRI DE NAIL, 6 OR MORE, Modifiers: XS 64343 TRIM SKIN LESIONS, OVER 4, Modifiers: XS , Q8 * Follow Up:?2 Months * Images: * Sign off status: Completed true * Provider:?Mark Azar DPM Date:?2024 Generated for Jesus harden/Claudia/eTransmitting on:?11/06/2024 04:53 PM EDT History and Physical [...]
== END 2024-11-06 15:28 | disposition home or self-care (01) ==
LOC: HO.HKAS 14:56
PROVIDERS: PCP Nurse Practitioner; Visit Provider Internal Medicine Nephrology
DX: R09.89 Other specified symptoms and signs involving the circulatory and respiratory systems (principal)
CPT/HCPCS: 99214

== ENCOUNTER → 2024-11-06 14:56 | Outpatient (BNVA) | payer OTHER, SELFPAY | PROVIDERS: PCP Nurse Practitioner; Visit Provider Internal Medicine Nephrology | DX: R09.89 Other specified symptoms and signs involving the circulatory and respiratory systems (principal) | CPT/HCPCS: 99212 ==

== ENCOUNTER 2025-01-01 14:13 | Outpatient (AMB) | payer OTHER, SELFPAY ==
[2025-01-01 14:42] VITALS: BP 136/70; PULSE 90; O2SAT 97; BMI 29.6
--- NOTE | 2025-01-01 14:42 | HO.NEPHOV ---
Vital Signs 01/01/25 14:42 Height 4 ft 11 in Weight 146 lb 7 oz BMI 29.6 BP 136/70 Blood Pressure Location Lt brachial Position Sitting Pulse 90 Pulse Source Pulse Oximeter Pulse Oximetry (%) 97 Oxygen Delivery Method Room Air Intake Visit Reasons: 1mon follow-up- Needs Structures Technician Required: Yes [employer] Employee Name: Lewis Carrion Information Interpreted: clinical only Accompanied by: Other Relationship Allergies Sulfa (Sulfonamide Antibiotics) Allergy (Mild, Verified 01/01/25 14:46) Swelling Do you need a note to return to daycare/school/sports/work: No HPI Comments Details: Fatou was seen in follow up for labile hypertension. She has Parkinsons disease . She is walking slower, now needs a walker. Her speech is slower. She has hypertension and says her SBP is high in the mornings( it may even go upto 200). She has been taking lisinopril 5 mg daily which had been increased to 10 mg daily after her recent 24 hour BPM. She follows with Endocrinology in [facility]. She has no H/O renal dysunction, uncontrolled thyroid disorders, EDU, DM, CAD, CVA, CHF, PAD or KALIN. She is compliant with low sodium diet and is compliant with her medications. She feels well. [facility] Medical History History of osteoporosis Broken arm Vitamin D deficiency Urinary incontinence Rib fracture Osteoarthritis HTN (hypertension) Bilateral cataracts Low back pain potentially associated with radiculopathy Parkinson's disease Surgical History History of esophagogastroduodenoscopy (EGD) H/O shoulder surgery Social History Household Members Other:: lives alone Alcohol intake: never Patient Tobacco Use Status: Never used Tobacco Review of Systems Const All systems reviewed & are unremarkable except as noted in HPI and below Physical Exam Vital Signs: Last Vital Signs Pulse 90 01/01/25 14:42 BP 136/70 01/01/25 14:42 Pulse Ox 97 01/01/25 14:42 Oxygen Delivery Method Room Air 01/01/25 14:42 BMI result Body Mass Index 29.6 Const General: comfortable and no acute distress Orientation/consciousness: patient oriented x3 HEENT Head: Yes normocephalic Mouth: Normal oral and palatal mucosa present Eyes EOM: EOMs intact bilaterally Neck Neck: Yes supple Resp Auscultation: clear to auscultation bilaterally Cardio Jugular venous distension: no JVD Rate: regular rate GI Palpation (GI): Soft to palpation Auscultation: normal bowel sounds General: Yes no CVA tenderness Back/Spine/Pelvis Back: no CVA tenderness Skin General skin exam: no rashes or lesions noted Neuro General: patient oriented x3 and moves all extremities Extrem General: Yes no pedal edema Assessment & Plan Assessment & Plan (1) HTN (hypertension): Code(s): I10 - Essential (primary) hypertension Category: Medical Qualifiers: Hypertension type: primary hypertension Qualified Code(s): I10 - Essential (primary) hypertension Plan Low sodium diet. Continued life style modifications Serum K and renal function normal; C/W current dose of lisinopril of 10 mg daily Recently had 24 hour ambulatory blood pressure monitor No dose changes in medication made today; All questions answered Further management is pending evolving data; F/U given Orders: Orders Electrolytes 3 Months I10 - Essential (primary) hypertension Blood Urea Nitrogen 3 Months I10 - Essential (primary) hypertension Creatinine 3 Months I10 - Essential (primary) hypertension Medications: Changed From lisinopril 10 mg PO DAILY To lisinopril 10 mg PO DAILY 90 tabs 3RF 90 days Coding Level of Care Code Est Pt Level 4 (64606) Diagnoses Primary hypertension I10 Hypertension type: primary hypertension
--- OUTSIDE RECORDS SUMMARY | 2025-01-01 17:21 | XMS_ITS | Patient Health Record ---
Author Organization [facility] guillermo Broadbent Address [address] [place] [address] Care Team Providers Care Wire Cutter Name Role Phone Petra De La O Primary Care Provider Unavailab Mark Smith Unavailable [phone] Allergies Allergen (clinical drug ingredient) Drug/Non Drug Allergy documented on EMR Reaction Allergy Type Onset Date Status Substance with sulfonamide structure and antibacterial mechanism of action (substance) Sulfa Antibiotics Unknown Drug Allergy Active Reason For Referral No Information Medications Medication SIG (Take, Route, Frequency, Duration) Notes Start Date End Date Status Calcium Citrate 200 MG as directed Orally Active Neosporin 500-49500 UNIT/GM 1 application as needed Externally Once a day; Duration: 7 days 11/15/2023 Active Alendronate Sodium 70 MG 1 tablet 30 min utes before the first food, beverage or medicine of the day with plain water Orally; Duration: 30 day(s) Active Ammonium Lactate 12 % 1 application to affected area Externally to feet Twice a day; Duration: 30 days Active Vitamin D3 Active Voltaren Active Torsemide Active Rasagiline Mesylate Active Pramipexole Dihydrochloride Active Omeprazole Active Mapap Extra Strength Active Lisinopril Active Gabapentin Not-Takin g Carbidopa-Levodopa A ctive Orthopedic Extra Depth Shoes With Custom Heat Molded Multidensity Innersoles 1 Pair shoes with 3 Pair custom heat molded innersoles Wear Daily; Duration: 365 days 07/10/2024 Active Immunizations Vaccine Route [...] Problem Acquired hammer toe of right foot (2544199381452717) Other hammer toe(s) (acquired), right foot (M20.41) Active confirmed Problem Acquired hammer toe of left foot (5943513044974377) Other hammer toe(s) (acquired), left foot (M20.42) Active confirmed Problem Gout (30665878) Gout of left teresa t (M10.9) Active confirmed Problem 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 (005524471) 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 Problem Intermittent claudication (25872831) Intermittent claudication (I73.9) Active confirmed Problem Bilateral atherosclerosis of arteries of lower limbs (disorder) (37798930595267309 ) Atherosclerosis of [place] artery of both lower extremities, with unspecified presence of clinical manifestation (I70.203) Active confirmed Vital Signs Blood pressure diastolic 60 mm Hg 07/10/2024 Height 4 ft 11 in in 10/13/2024 Blood pressure systolic 150 mm Hg 07/10/2024 Weight 150 lbs 10/13/2024 BMI 30.29 kg/m2 10/13/2024 Procedures Procedure Date Ordered Date Performed Result Body Sit e 81885-VLLABIJ NAIL, 6 OR MORE 10/13/2024 N/A 25899-FCJG SKIN LESIONS, OVER 4 10/13/2024 N/A 44330-SCQP SKIN LESIONS, OVER 4 07/10/2024 N/A 89386-YPLJIAL NAIL, 6 OR MORE 07/10/2024 N/A 28801-SQCE SKIN LESIONS, OVER 4 04/07/2024 N/A 49274-CFUJTDE NAIL, 6 OR MORE 04/07/2024 N/A 06550-ORKK SKIN LESIONS, OVER 4 01/28/2024 N/A 88217- Debride <25 sq cm 01/28/2024 N/A 41335-DZBGMHJ NAIL, 6 OR MORE 01/28/2024 N/A Encounters Encounter Location Date Provider Diagnosis [address] [address] 01/28/2024 Mark Azar Atherosclerosis of [place] artery of both lower extremities, with unspecified [...] foot, limited to breakdown of skin L97.[address] [address] 04/07/2024 Mark Azar Atherosclerosis of [place] artery of both lower extremities, with unspecified presence of clinical manifestation I70.203 ; Onychomycosis B35.1 ; Pain of toe of right foot M79.674 ; Pain of toe of left foot M79.675 and Skin ulcer of toe of left foot, limited to breakdown of skin L97.[address] [address] 07/10/2024 Mark Azar Atherosclerosis of [place] artery of both lower extremities, with unspecified presence of clinical manifestation I70.203 ; Onychomycosis B35.1 ; Pain of toe of right foot M79.674 ; Pain of toe of left foot M79.675 ; Other hammer toe(s) (acquired), right foot M20.41 and Other hammer toe(s) (acquired), left foot M20.[address] [address] 10/13/2024 Mark Azar Atherosclerosis of [place] artery of both lower extremities, with unspecified presence of clinical manifestation I70.203 ; Onychomycosis B35.1 ; Pain of toe of right foot M79.674 and Pain of toe of left foot M79.675 Assessments Encounter Date Diagnosis (ICD Code) Assessment Notes Treatment Notes Treatment Clinical Notes Section Notes 01/28/2024 Onychomycosis (ICD-10 - B35.1) 01/28/2024 Atherosclerosis of [place] artery of both lower extremities, with unspecified presence of clinical manifestation (ICD-10 - I70.203) 04/07/2024 Onychomycosis (ICD-10 - B35.1) 04/07/2024 Atherosclerosis of [place] artery of both lower extremities, with unspecified presence of clinical manifestation (ICD-10 - I70.203) 07/10/2024 Onychomycosis (ICD-10 - B35.1) 07/10/2024 Atherosclerosis of [place] artery of both lower extremities, with unspecified presence of clinical manifestation (ICD-10 - I70.203) 10/13/2024 Onychomycosis (ICD-10 - B35.1) 10/13/2024 Atherosclerosis of [place] artery of both lower extremities, with unspecified presence of clinical manifestation (ICD-10 - I70.203) 07/10/2024 Pain of toe of right foot (ICD-10 - M79.674) 10/13/2024 Pain of toe of right foot (ICD-10 - M79.674) 04/07/2024 Pain of toe of right foot (ICD-10 - M79.674) 01/28/2024 Pain of toe of right foot (ICD-10 - M79.674) 01/28/2024 Pain of toe of left foot (ICD-10 - M79.675) 07/10/2024 Pain of toe of left foot (ICD-10 - M79.675) 04/07/2024 Pain of toe of left foot (ICD-10 - M79.675) 10/13/2024 Pain of toe of left foot (ICD-10 - M79.675) 01/28/2024 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 pdf (WOUND CARE INSTRUCTIONS. pdf) 01/28/2024 Other 04/07/2024 Other 07/10/2024 Other 10/13/2024 Other Plan Of Treatment Pending Test Test Name Order Date 84690-DEKEHIM NAIL, 6 OR MORE 10/25/2020 13775-STZWQTH NAIL, 6 OR MORE 01/12/2021 29855-BLFESXU NAIL, 6 OR MORE 04/11/2021 67363-UZMYLFV NAIL, 6 OR MORE 07/18/2021 24162-LWUYYLI NAIL, 6 OR MORE 09/26/2021 97831-DWVBUKY NAIL, 6 OR MORE 11/28/2021 86248-GMBNLKX NAIL, 6 OR MORE 02/06/2022 95307-NKNYKTF NAIL, 6 OR MORE 04/27/2022 61516-ZJZXERY NAIL, 6 OR MORE 07/20/2022 81269-OYXEABW NAIL, 6 OR MORE 09/28/2022 28607-BERCPZJ NAIL, 6 OR MORE 12/28/2022 68688-UVNNEPX NAIL, 6 OR MORE 03/22/2023 01549-VLBPCXS NAIL, 6 OR MORE 06/21/2023 29548-BTKGZPM NAIL, 6 OR MORE 11/15/2023 01625-HKSGSFN NAIL, 6 OR MORE 01/28/2024 93294-RXCUGWA NAIL, 6 OR MORE 04/07/2024 27976-FAMHEGG NAIL, 6 OR MORE 07/10/2024 31512-STQGEWP NAIL, 6 OR MORE 10/13/2024 93092- Debride <25 sq cm 01/28/2024 00162-EDLCYWS SKIN/TISSUE 11/15/2023 51949-AARW SKIN LESIONS, OVER 4 04/07/20 24 20965-ZWKH SKIN LESIONS, OVER 4 01/28/20 24 88516-IFHW SKIN LESIONS, OVER 4 11/15/19 24 40937-RXBI SKIN LESIONS, OVER 4 10/14/19 25 57810-ZZPX SKIN LESIONS, OVER 4 07/10/19 55542-KTTY SKIN LESIONS, OVER 4 06/21/20 37710-ADQK SKIN LESIONS, OVER 4 03/22/20 35218-MSSJ SKIN LESIONS, OVER 4 12/29/19 44294-MXDU SKIN LESIONS, OVER 4 09/29/19 48397-AFKQ SKIN LESIONS, OVER 4 07/20/19 Next Appt Details Provider Name:Mark Gibson Nissa , 01/14/2025 11:30:00 AM, [address] [facility], [address], [place], [address], Insurance Providers Payer Name Payer Address Payer Phone Subscriber Number Group Number Insured Name Patient Relationship to Insured Coverage Start Date Coverage End Date [facility] [employer] Claims [address] [place] [phone] [id number] Fatou Dnenison Self - patient is the insured Medical (General) History Medical History History ICD Code Arthritis Back pain Cataracts chest pain Hypertension, benign Osteoporosis Parkinsons disease Vitamin D deficiency Surgical History Surgery Date(Month/Year) Hospitalization History Reason Date(Month/Year) [facility] - Fall, then rehab facility 07/31/23 [facility]- chest pain, high blood pressure 02/07
== END 2025-01-01 15:01 | disposition home or self-care (01) ==
LOC: HO.HKAS 14:14
PROVIDERS: PCP Nurse Practitioner; Visit Provider Internal Medicine Nephrology
DX: I10 Essential (primary) hypertension (principal)
CPT/HCPCS: 99214

== ENCOUNTER → 2025-01-01 14:13 | Outpatient (BNVA) | payer OTHER, SELFPAY | PROVIDERS: PCP Nurse Practitioner; Visit Provider Internal Medicine Nephrology | DX: Z71.3 Dietary counseling and surveillance (principal); I10 Essential (primary) hypertension | CPT/HCPCS: 99212 ==

== ENCOUNTER 2025-04-07 09:44 | Outpatient (AMB) | payer OTHER, SELFPAY ==
--- NOTE | 2025-04-07 09:48 | HO.NEPHOV_ITS ---
Vital Signs 04/07/25 09:54 Height 4 ft 11 in Weight 142 lb BMI 28.7 BP 134/78 Blood Pressure Location Lt brachial Position Sitting Pulse 82 Pulse Source Pulse Oximeter Pulse Oximetry (%) 94 Oxygen Delivery Method Room Air Intake Visit Reasons: 3 mo follow up-Voicemail Not Set Grades 7 8 Tutor Required: Yes Grades 7 8 Tutor Language: Zambian Grades 7 8 Tutor Services: Grades 7 8 Tutor Present Grades 7 8 Tutor Name: Lanie [id number] Information Interpreted: clinical only Accompanied by: Other Relationship Allergies Sulfa (Sulfonamide Antibiotics) Allergy (Mild, Verified 04/07/25 09:53) Swelling HPI Comments Details: Fatou was seen in follow up for labile hypertension. She has Parkinsons disease . She is walking slower, now needs a walker. Her speech is slower. She has hypertension and says her SBP is high in the mornings( it may even go upto 200). She has been taking lisinopril 5 mg daily which had been increased to 10 mg daily after her recent 24 hour BPM. She follows with Endocrinology in [facility]. She has no H/O renal dysunction, uncontrolled thyroid disorders, EDU, DM, CAD, CVA, CHF, PAD or KALIN. She is compliant with low sodium diet and is compliant with her medications. She feels well. [facility] Medical History History of osteoporosis Broken arm Vitamin D deficiency Urinary incontinence Rib fracture Osteoarthritis HTN (hypertension) Bilateral cataracts Low back pain potentially associated with radiculopathy Parkinson's disease Surgical History History of esophagogastroduodenoscopy (EGD) H/O shoulder surgery Social History Household Members Other:: lives alone Alcohol intake: never Patient Tobacco Use Status: Never used Tobacco Review of Systems Const All systems reviewed & are unremarkable except as noted in HPI and below Physical Exam Const General: comfortable and no acute distress Orientation/consciousness: patient oriented x3 HEENT Head: Yes normocephalic Mouth: Normal oral and palatal mucosa present Eyes EOM: EOMs intact bilaterally Neck Neck: Yes supple Resp Auscultation: clear to auscultation bilaterally Cardio Jugular venous distension: no JVD Rate: regular rate GI Palpation (GI): Soft to palpation Auscultation: normal bowel sounds General: Yes no CVA tenderness Back/Spine/Pelvis Back: no CVA tenderness Skin General skin exam: no rashes or lesions noted Neuro General: patient oriented x3 and moves all extremities Extrem General: Yes no pedal edema Assessment & Plan Assessment & Plan (1) Labile hypertension: Code(s): R09.89 - Other specified symptoms and signs involving the circulatory and res piratory systems Category: Medical Plan Low sodium diet. Continued life style modifications Serum K and renal function had been normal C/W current dose of lisinopril of 10 mg daily Recently had 24 hour ambulatory blood pressure monitor- results reviewed with pt No dose changes in medication made today; All questions answered Further management is pending evolving data; F/U given Orders: Orders Creatinine 6 Months R09.89 - Other specified symptoms and signs involving the circulatory and respiratory systems Electrolytes 6 Months R09.89 - Other specified symptoms and signs involving the circulatory and respiratory systems Blood Urea Nitrogen 6 Months R09.89 - Other specified symptoms and signs involving the circulatory and respiratory systems Protein Creatinine Ratio, Ur 6 Months R09.89 - Other specified symptoms and signs involving the circulatory and respiratory systems Coding Level of Care Code Est Pt Level 4 (08908) Diagnoses Labile hypertension R09.89
[2025-04-07 09:54] VITALS: BP 134/78; PULSE 82; O2SAT 94; BMI 28.7
--- OUTSIDE RECORDS SUMMARY | 2025-04-07 10:35 | XMS_ITS | Patient Health Record ---
Author Organization [facility] [place] Address [address] [place] [address] Care Team Providers Care Clinical Appeals Specialist Name Role Phone Petra De La O Primary Care Provider Unavailab Mark Smith Unavailable [phone] Allergies Allergen (clinical drug ingredient) Drug/Non Drug Allergy documented on EMR Reaction Allergy Type Onset Date Status Substance with sulfonamide structure and antibacterial mechanism of action (substance) Sulfa Antibiotics Unknown Drug Allergy Active Reason For Referral No Information Medications Medication SIG (Take, Route, Frequency, Duration) Notes Start Date End Date Status Carbidopa-Levodopa A ctive Orthopedic Extra Depth Shoes With Custom Heat Molded Multidensity Innersoles 1 Pair shoes with 3 Pair custom heat molded innersoles Wear Daily; Duration: 365 days 07/10/2024 Active Lisinopril Active Gabapentin Not-Takin g Alendronate Sodium 70 MG 1 tablet 30 min utes before the first food, beverage or medicine of the day with plain water Orally; Duration: 30 day(s) Active Ammonium Lactate 12 % 1 application to affected area Externally to feet Twice a day; Duration: 30 days Active Calcium Citrate 200 MG as directed Orally Active Neosporin 500-77254 UNIT/GM 1 application as needed Externally Once a day; Duration: 7 days 11/15/2023 Active Pramipexole Dihydrochloride Active Mapap Extra Strength Active Omeprazole Active Voltaren Active Vitamin D3 Active Rasagiline Mesylate Active Torsemide Active Immunizations Vaccine Route Administration Date Status Comme nts COVID-19 Cr & Cr/Mala Unknown 09/26/2021 R efused Social History Tobacco Use: Social History Observation Description Date Details (start date - stop date) Never Smoker NA - NA Tobacco use other than smoking: Question Answer Notes Are you an other tobacco user? No Tobacco Control (Standard) Question Answer Notes Tobacco use: Nonsmoker Additional Findings: Tobacco non-user Current no nsmoker AUDIT-C (Standard) Question Answer Notes Did you have a drink containing alcohol in the p ast year? 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 Problem Intermittent claudication (63975060) Intermittent claudication (I73.9) Active confirmed Problem Bilateral atherosclerosis of arteries of lower limbs (disorder) (39463336688649617 ) Atherosclerosis of [place] artery of both lower extremities, with unspecified presence of clinical manifestation (I70.203) Active confirmed Vital Signs Blood pressure diastolic 60 mm Hg 07/10/2024 Height 4 ft 11 in in 01/14/2025 Blood pressure systolic 150 mm Hg 07/10/2024 Weight 146 lbs 01/14/2025 BMI 29.49 kg/m2 01/14/2025 Procedures Procedure Date Ordered Date Performed Result Body Sit e 71136-SDHHYBQ NAIL, 6 OR MORE 04/07/2024 N/A 84735-LSFI SKIN LESIONS, OVER 4 04/07/2024 N/A 58645-EFTHLLS NAIL, 6 OR MORE 07/10/2024 N/A 57637-XAWI SKIN LESIONS, OVER 4 07/10/2024 N/A 35401-WBLKSBS NAIL, 6 OR MORE 10/13/2024 N/A 30032-VNKB SKIN LESIONS, OVER 4 10/13/2024 N/A 13240-OWPKUQF NAIL, 6 OR MORE 01/14/2025 N/A 34574-ABLN SKIN LESIONS, OVER 4 01/14/2025 N/A Encounters Encounter Location Date Provider Diagnosis [facility] [place] [address] [place] [address] 04/07/2024 Mark Andersonunier Atherosclerosis of [place] artery of both lower extremities, with unspecified presence of clinical manifestation I70.203 ; Onychomycosis B35.1 ; Pain of toe of right foot M79.674 ; Pain of toe of left foot M79.675 and Skin ulcer of toe of left foot, limited to breakdown of skin L97.[address] [address] 07/10/2024 Mark Andersonunier Atherosclerosis of [place] artery of both lower extremities, with unspecified presence of clinical manifestation I70.203 ; Onychomycosis B35.1 ; Pain of toe of right foot M79.674 ; Pain of toe of left foot M79.675 ; Other hammer toe(s) (acquired), right foot M20.41 and Other hammer toe(s) (acquired), left foot M20.[address] [address] 10/13/2024 Markjanet AndersonNissa Atherosclerosis of [place] artery of both lower extremities, with unspecified presence of clinical manifestation I70.203 ; Onychomycosis B35.1 ; Pain of toe of right foot M79.674 and Pain of toe of left foot M79.[address] [address] 01/14/2025 Mark Nissa Atherosclerosis of [place] artery of both lower extremities, with unspecified presence of clinical manifestation I70.203 ; Onychomycosis B35.1 ; Pain of toe of right foot M79.674 and Pain of toe of left foot M79.675 Assessments Encounter Date Diagnosis (ICD Code) Assessment Notes Treatment Notes Treatment Clinical Notes Section Notes 04/07/2024 Onychomycosis (ICD-10 - B35.1) 04/07/2024 Atherosclerosis of [place] artery of both lower extremities, with unspecified presence of clinical manifestation (ICD-10 - I70.203) 07/10/2024 Onychomycosis (ICD-10 - B35.1) 07/10/2024 Atherosclerosis of [place] artery of both lower extremities, with unspecified presence of clinical manifestation (ICD-10 - I70.203) 10/13/2024 Onychomycosis (ICD-10 - B35.1) 10/13/2024 Atherosclerosis of [place] artery of both lower extremities, with unspecified presence of clinical manifestation (ICD-10 - I70.203) 01/14/2025 Onychomycosis (ICD-10 - B35.1) 01/14/2025 Atherosclerosis of [place] artery of both lower extremities, with unspecified presence of clinical manifestation (ICD-10 - I70.203) 01/14/2025 Pain of toe of right foot (ICD-10 - M79.674) 07/10/2024 Pain of toe of right foot (ICD-10 - M79.674) 10/13/2024 Pain of toe of right foot (ICD-10 - M79.674) 04/07/2024 Pain of toe of right foot (ICD-10 - M79.674) 04/07/2024 Pain of toe of left foot (ICD-10 - M79.675) 07/10/2024 Pain of toe of left foot (ICD-10 - M79.675) 10/13/2024 Pain of toe of left foot (ICD-10 - M79.675) 01/14/2025 Pain of toe of left foot (ICD-10 - M79.675) 04/07/2024 Skin ulcer of toe of left foot, limited to breakdown of skin (ICD-10 - L97.521) 07/10/2024 Other hammer toe(s) (acquired), right foot (ICD-10 - M20.41) 07/10/2024 Other hammer toe(s) (acquired), left foot (ICD-10 - M20.42) 04/07/2024 Other 07/10/2024 Other 10/13/2024 Other 01/14/2025 Other Plan Of Treatment Pending Test Test Name Order Date 26741-XYMPZDJ NAIL, 6 OR MORE 10/25/2020 45965-SBPROXS NAIL, 6 OR MORE 01/12/2021 12377-QBDKXME NAIL, 6 OR MORE 04/11/2021 64836-VKZESAO NAIL, 6 OR MORE 07/18/2021 30884-MZNKAHS NAIL, 6 OR MORE 09/26/2021 45095-AFRMTPX NAIL, 6 OR MORE 11/28/2021 12689-FEIDPRB NAIL, 6 OR MORE 02/06/2022 92276-UNOZLKG NAIL, 6 OR MORE 04/27/2022 20789-TXADNLP NAIL, 6 OR MORE 07/20/2022 87868-LMGBDZE NAIL, 6 OR MORE 09/28/2022 27786-UKCNMCL NAIL, 6 OR MORE 12/28/2022 93575-LERGPUI NAIL, 6 OR MORE 03/22/2023 85516-EKAXHSU NAIL, 6 OR MORE 06/21/2023 91928-VUDRXRL NAIL, 6 OR MORE 11/15/2023 36525-ECGMWRK NAIL, 6 OR MORE 01/28/2024 25419-OWRKOFC NAIL, 6 OR MORE 04/07/2024 37068-NPZRIPG NAIL, 6 OR MORE 07/10/2024 81807-YMUDJBR NAIL, 6 OR MORE 10/13/2024 20712-NXNTDHL NAIL, 6 OR MORE 01/14/2025 06873- Debride <25 sq cm 01/28/2024 31953-TTCESPF SKIN/TISSUE 11/15/2023 93506-XRXC SKIN LESIONS, OVER 4 04/07/20 24 49085-CSUX SKIN LESIONS, OVER 4 01/28/20 24 77325-EFPQ SKIN LESIONS, OVER 4 11/15/19 24 97203-OQRQ SKIN LESIONS, OVER 4 01/15/20 25 68430-DFII SKIN LESIONS, OVER 4 10/14/19 25 10703-JNOW SKIN LESIONS, OVER 4 07/10/19 25 73359-HWTE SKIN LESIONS, OVER 4 06/21/20 23 55605-WIAN SKIN LESIONS, OVER 4 03/22/20 23 01668-FGKX SKIN LESIONS, OVER 4 12/29/19 12911-BPMH SKIN LESIONS, OVER 4 09/29/19 62626-BVQD SKIN LESIONS, OVER 4 07/20/19 Next Appt Details Provider Name:Mark Gibson Nissa , 04/08/2025 11:30:00 AM, [address] [facility], [place] [address], [place], [address], Insurance Providers Payer Name Payer Address Payer Phone Subscriber Number Group Number Insured Name Patient Relationship to Insured Coverage Start Date Coverage End Date [facility] [employer] Claims [address] [place] [phone] [id number] Fatou Dennison Self - patient is the insured Medical (General) History Medical History History ICD Code Arthritis Back pain Cataracts chest pain Hypertension, benign Osteoporosis Parkinsons disease Vitamin D deficiency Surgical History Surgery Date(Month/Year) eye surgery 2024 Hospitalization History Reason Date(Month/Year) [facility] - Fall, then rehab facility 07/31/23 [facility]- chest pain, high blood pressure 02/07
--- OUTSIDE RECORDS SUMMARY | 2025-04-07 10:35 | XMS_ITS | Clinical Summary ---
Author Organization [facility] Address [address] [place] [address] Care Team Providers Care Pai Gow Dealer Name Role Phone Petra Hernandez NP Primary Care Provider [phone] Source Comments PLEASE NOTE, if this patient [...] disease without dyskinesia, unspecified whether manifestations fluctuate Take 1 Tablet by mouth 4 (four) times daily for 90 days 120 Tablet 2 12/18/19 24 Active rasagiline 1 mg tabIndications:Pa rkinson's disease without dyskinesia, unspecified whether manifestations fluctuate Take 1 Tablet by mouth daily. 30 Tablet 12/18/19 24 Active latanoprost (XALATAN) 0.005 % ophthalmic solution Place 1 Drop into both eyes nightly at bedtime 2.5 mL 2 01/15/20 24 Active folic acid (FOLVITE) 1 mg tablet Take 1 Tablet by mouth once daily 90 Tablet 1 01/15/20 24 Active carbidopa-levodop a (SINEMET) 25-100 mg per tabletIndications :Parkinson's disease without dyskinesia, unspecified whether manifestations fluctuate Take 2 Tablets by mouth 4 (four) times daily for 90 days 240 Tablet 2 01/21/20 24 Active diclofenac sodium (VOLTAREN) 1 % gelIndications:Ag e related osteoporosis, unspecified pathological fracture presence APPLY TOPICALLY TWO TIMES A DAY NEEDED FOR PAIN (BULK) 100 g 1 04/16/20 24 Active ONE-A-DAY WOMEN'S COMPLETE 18 mg iron- 400 mcg tabIndications:Ag e related osteoporosis, unspecified pathological fracture presence TAKE ONE TABLET BY MOUTH EVERY MORNING ^1R3 30 Tablet 5 09/23/19 25 Active pantoprazole (PROTONIX) 40 mg EC tabletIndications :Gastroesophageal reflux disease without esophagitis TAKE ONE TABLET BY MOUTH EVERY MORNING BEFORE BREAKFAST ^1R1 30 Tablet 5 11/15/19 25 Active calcium citrate (CALCITRATE) 200 mg (950 mg) tabletIndications :Age related osteoporosis, unspecified pathological fracture presence TAKE ONE TABLET BY MOUTH EVERY DAY ^1R2 30 Tablet 5 11/15/19 25 Active lisinopriL 5 mg tabletIndications :Primary hypertension Take 1 Tablet by mouth nightly at bedtime. 30 Tablet 2 12/20/19 25 Active MYRBETRIQ 25 mg Au37Xpeuikofnse:S tress incontinence TAKE ONE TABLET BY MOUTH EVERY DAY ^1R2 30 Tablet 2 03/06/20 25 Active alendronate (FOSAMAX) 70 mg tabletIndications :Age related osteoporosis, unspecified pathological fracture presence TAKE ONE TABLET BY MOUTH EVERY 7 DAYS (BULK) 4 Tablet 5 04/03/20 25 Active famotidine (PEPCID) 20 mg tabletIndications :Gastroesophageal reflux disease, unspecified whether esophagitis present TAKE ONE TABLET BY MOUTH TWICE A DAY ^1R1,1R4 60 Tablet 2 04/03/20 25 Active gabapentin (NEURONTIN) 100 mg capsuleIndication s:Cramp in limb TAKE ONE CAPSULE BY MOUTH EVERY EVENING AT BEDTIME (VIAL) 30 Capsule 4 04/03/20 25 Active meclizine 25 mg chewable tabletIndications :Dizziness CHEW AND SWALLOW ONE TABLET BY MOUTH THREE TIMES A DAY NEEDED FOR DIZZINESS (VIAL) 30 Tablet 4 04/03/20 25 Active torsemide (DEMADEX) 5 mg tabletIndications :Hypertension, unspecified type TAKE ONE TABLET BY MOUTH EVERY DAY ^1R1 30 Tablet 4 04/03/20 25 Active VITAMIN D3 125 mcg (5,000 unit) tab tablet TAKE ONE TABLET BY MOUTH EVERY DAY ^1R2 30 Tablet 5 04/03/20 25 Active VITAMIN D3 125 mcg (5,000 unit) tab tablet TAKE ONE TABLET BY MOUTH EVERY DAY ^1R2 30 Tablet 5 05/08/20 24 025 Discontinued alendronate (FOSAMAX) 70 mg tabletIndications :Age related osteoporosis, unspecified pathological fracture presence TAKE ONE TABLET BY MOUTH EVERY 7 DAYS (BULK) 13 Tablet 1 11/07/19 25 025 Discontinued meclizine 25 mg chewable tabletIndications :Dizziness CHEW AND SWALLOW ONE TABLET BY MOUTH THREE TIMES A DAY NEEDED FOR DIZZINESS (VIAL) 30 Tablet 4 11/15/19 25 025 Discontinued gabapentin (NEURONTIN) 100 mg capsuleIndication s:Cramp in limb TAKE ONE CAPSULE BY MOUTH EVERY EVENING AT BEDTIME (VIAL) 30 Capsule 4 11/15/19 25 025 Discontinued torsemide (DEMADEX) 5 mg tabletIndications :Hypertension, unspecified type TAKE ONE TABLET BY MOUTH EVERY DAY ^1R1 30 Tablet 4 11/15/19 25 025 Discontinued famotidine (PEPCID) 20 mg tabletIndications :Gastroesophageal reflux disease, unspecified whether esophagitis present TAKE ONE TABLET BY MOUTH TWICE A DAY ^1R1,1R4 60 Tablet 2 01/13/20 25 025 Discontinued Active Problems Problem Noted Date Diagnosed Date Prediabetes 01/22/2024 Obesity (BMI 30-39.9) 01/21/2024 Hyperthyroidism 01/21/2024 Overview (01/21/2024): 01/2024: [facility] in [facility] next appt mar 05 Closed left humeral fracture 09/21/2023 Overview (09/21/2023): Occurred 07/30 after mechanical fall during OV visit at [facility]. Patient seen at [facility] afterwards; given a splint and sling. Has Ortho on October 01. History of vertebral fracture 09/21/2023 Overview (09/21/2023): Seen at [facility] on 08/04; has ortho October 01 [...] pain 04/27/2023 Compression fracture of lumbar vertebra 04/27/20 Cramp in limb 04/27/2023 Degenerative arthritis of spine 04/27/2023 Hemiplegia 04/27/2023 HTN (hypertension) 04/27/2023 Inflammatory spondylopathy 04/27/2023 Lumbar radiculopathy 04/27/2023 Neural foraminal stenosis of lumbar spine 2022 Osteoarthritis of both knees 04/27/2023 Osteoporosis 04/27/2023 Parkinson disease 04/27/2023 Overview (03/03/2024): 03/03/24: pt suffered a fall at home, she is with [facility] at [facility], next appt is 04/14/24 01/20/24: [facility], next appt 04/14/24. No falls since last visit. 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 daily by family member 10/2023: seen with domi, f/u 6 months Presence of dental prosthetic device 04/27/2023 Rib fracture 04/27/2023 Shoulder pain 04/27/2023 Stress incontinence of urine 04/27/2023 Vitamin D deficiency 04/27/2023 Resolved Problems Problem Noted Date Diagnosed Date Resolved Date Osteopenia 04/27/2023 03/18/2024 Upper respiratory infection 04/27/2023 05/28/2023 Immunizations Immunization Administration Dates Next Due Influenza (FLUZONE), high-dose, trivalent, PF Social History Tobacco Use Types Packs/Day Years Used Date Smoking Tobacco: Never Passive Smoke Exposure: Never Smokeless Tobacco: Never Alcohol Use Standard Drinks/Week Comments Never 0 (1 standard drink = 0.6 oz pur e alcohol) Social Connections Answer Date Recorded How often do you feel lonely or isolated from th ose around you? 1 03/18/2024 Financial Resource Strain Answer Date R ecorded Hard to pay for: Food 1 03/18/2024 Stress Answer Date Recorded Do you feel these kinds of stress these days? 1 03/18/2024 Physical Activity Answer Date Recorded Physical Activity 0 04/20/2023 Food Insecurity Answer Date Recorded Hard to pay for: Food 1 03/18/2024 Transportation Needs Answer Date Record ed Hard to pay for: Transportation 1 03/18/2024 Housing Stability Answer Date Recorded Hard to pay for: Rent/Mortgage payment 1 03/18/2024 Safety and Environment Answer Date Srinivas rded Safety 1 11/16/2023 Utilities Answer Date Recorded Hard to pay for: Utilities 1 03/18 Employment Answer Date Recorded Stress 0 04/27/2023 Comments No Sex and Gender Information Value Date Recorded Sex Assigned at Female 03/28/2023 10:11 AM PDT Legal Sex Female 1:24 PM PDT Gender Identity Female 03/28/2023 10:11 AM PDT Sexual Orientation Straight 03/28/2023 10 :11 AM PDT Last Filed Vital Signs Vital Sign Reading Time Taken Comments Blood Pressure 80/46 12/19/2024 11:02 AM EDT Right Arm 78/50 Pulse 83 12/19/2024 11:02 AM EDT Temperature 36.6 C (97.8 F) 12/19/2024 11:02 AM EDT Respiratory Rate 18 12/19/2024 11:0 2 AM EDT Oxygen Saturation 97% 12/19/2024 11: 02 AM EDT Inhaled Oxygen Concentration - - Weight 65.9 kg (145 lb 3.2 oz) 12/19/2024 11:02 AM EDT Height 147.3 cm (4' 10 ) 11/24/2024 10: 34 AM EDT Body Mass Index 30.35 11/24/2024 10:34 AM EDT Plan of Treatment Upcoming Encounters Date Type Department Care Team (Late st Contact Info) Description 04/27/2025 2:00 PM EDT Office Visit [facility] [address] [place] [id number] Rubén Arora, PharmD [address] [place] [address] Gaviota Pryor [address] [place] [address] Health Maintenance Due Date Last Done Comments Advanced Care Planning 01/16/1946 Medicare Annual Wellness Visit 12/16/1961 Imm-DTaP/Tdap/Td (1 - Tdap) 12/16/1962 Imm-Pneumococcal 50+ (1 of 1 - PCV) 12/16/1993 Imm-Zoster, Recombinant (1 of 2) 12/16/1993 Bone Density Screening 12/16/2008 Imm-RSV (adult) (1 - 1-dose 75+ series) 12/16/2018 [id number] ( - 2023- season) 2025 Imm-Influenza (#1) 2025 06/19/2017 Diabetes Screening 11/19/2025 11/19/2024, 0 03/05/2024, 01/21/2024, Additional history exists Falls Prevention 11/19/2025 11/19/2024, 09/21/2023 Tobacco Screening 12/19/2025 12/19/2024, 01/21/2024 Alcohol and Drug Screen Completed 11/20/19, 03/18/2024, 03/03/2024, Additional history exists Depression Annual Screen Completed 11/19/2024 Procedures Procedure Name Priority Date/Time Associated Diagnosis Comments COMPREHENSIVE METABOLIC PANEL Routine 11/19/2024 11:53 AM EDT Preop cardiovascular exam from Last 3 Months or Most Recently Relevant to Health Maintenance Results * COMPREHENSIVE METABOLIC PANEL (11/19/2024 11:53 AM EDT) GLUCOSE 97 65 - 99 mg/dL [facility] Comment: Fasting reference interval UREA NITROGEN (BUN) 25 7 - 25 mg/dL [facility] CREATININE (blood) 0.89 0.60 - 0.95 mg/dL [facility] EGFR 65 > OR = 60 mL/min/1. 73m2 [facility] BUN/CREATININE RATIO SEE NOTE: [facility] Comment: Not Reported: BUN and Creatinine are within reference range. SODIUM 139 135 - 146 mmol/L [facility] POTASSIUM 5.0 3.5 - 5.3 mmol/L [facility] CHLORIDE 99 98 - 110 mmol/L [facility] CARBON DIOXIDE 32 20 - 32 mmol/L [facility] CALCIUM 9.6 8.6 - 10.4 mg/dL [facility] PROTEIN, TOTAL 7.6 6.1 - 8.1 g/dL [facility] ALBUMIN 4.4 3.6 - 5.1 g/dL [facility] GLOBULIN 3.2 1.9 - 3.7 g/dL (calc) [facility] ALBUMIN/GLOBULI N RATIO 1.4 1.0 - 2.5 (calc) [facility] BILIRUBIN, TOTAL 0.5 0.2 - 1.2 mg/dL [facility] ALKALINE PHOSPHATASE 72 37 - 153 U/L [facility] AST 17 10 - 35 U/L [facility] ALT 7 6 - 29 U/L [facility] Blood Blood / Unknown 11/19/2024 1 1:53 AM EDT 11/19/2024 11:55 AM EDT Narrative [facility] - 11/20/2024 6:53 AM EDT FASTING:YES us Petra Hernandez [employer] [facility] - BLOOD DRAW Final Resul t [facility] [address] [address], [employer] [facility] [address] [place] [address] from Last 3 Months or Most Recently Relevant to Health Maintenance Insurance [facility] [place] [id number] Care Teams Pai Gow Dealer Relationship Specialty Start Date End Date Petra Hernandez NP [address] [place] [address] PCP - General Internal Medicine 08/03/23
--- OUTSIDE RECORDS SUMMARY | 2025-04-07 10:35 | XMS_ITS | Clinical Summary ---
Author Organization [facility] [address] [place] [address] Address [address] [place] [address] Phone Care Team Providers Care Kiln Stoker Name Role Phone Petra Hernandez Primary Care Provider [phone] Allergies Active Allergy Reactions Criticality Noted Date Comments Acetazolamide 05/27/2015 Other Swelling Medium 06/12/2014 EYES Sulfabenzamide 06/04/2024 Tramadol Rash Medium 06/16/2014 PER H&P Medications alendronate (FOSAMAX) 70 mg tablet Sig - Route: Take 1 Tablet by mouth every 7 days. 4 Active calcium citrate (CALCITRATE) 950 mg (200 mg elemental calcium) tablet Take 1 tablet (950 mg total) by mouth 1 (one) time each day. 4 Active carbidopa-levod opa (SINEMET) 25-100 mg per tablet Take 1 tablet by mouth 3 (three) times a day. Active cholecalciferol (VITAMIN D-3) 50 mcg (2,000 unit) tablet Take by mouth. Ac tive diclofenac (VOLTAREN) 1 % topical gel Sig - Route: Apply 1 Tube topically as needed. 4 Active famotidine (PEPCID) 20 mg tablet Take 1 tablet (20 mg total) by mouth 2 (two) times a day. 4 Active gabapentin (NEURONTIN) 100 mg capsule Take 1 capsule (100 mg total) by mouth 1 (one) time each day. 4 Active latanoprost (XALATAN) 0.005 % ophthalmic solution Sig - Route: apply to the eye. Both eyes 4 Active lisinopriL (PRINIVIL,ZESTR IL) 5 mg tablet Take 1 tablet (5 mg total) by mouth 1 (one) time each day. 4 Active meclizine (ANTIVERT) 25 mg tablet Chew 1 tablet (25 mg total) if needed. 4 Active mirabegron (MYRBETRIQ) 25 mg 24 hr tablet Mirabegron ER 25 MG TABLET SR 24 HR-Sig - Route: Take 25 mg by mouth. Active pramipexole (MIRAPEX) 0.5 mg tablet Take 1 tablet (0.5 mg total) by mouth 3 (three) times a day. Active rasagiline (AZILECT) 1 mg tablet Take by mouth. 4 Active torsemide (DEMADEX) 5 mg tablet Take 1 tablet (5 mg total) by mouth 1 (one) time each day. 4 Active methIMAzole (TAPAZOLE) 5 mg tablet TAKE ONE TABLET BY MOUTH EVERY DAY 30 tablet 6 5 Active Social History Tobacco Use Types Packs/Day Years Used Date Smoking Tobacco: Never Smokeless Tobacco: Never Tobacco Cessation:Counseling Given: Not Answered Alcohol Use Standard Drinks/Week Comments Not Currently 0 (1 standard drink = 0.6 oz pur e alcohol) Comments No Sex and Gender Information Value Date Recorded Sex Assigned at Not on file Legal Sex Female 9:17 PM EST Gender Identity Not on file Sexual Orientation Not on file Obstetrics History Last Filed Vital Signs Vital Sign Reading Time Taken Comments Blood Pressure 114/60 11/20/2024 9:50 AM EDT Pulse 84 11/20/2024 9:50 AM EDT Temperature 36 C (96.8 F) 11/20/2024 9:50 AM EDT Respiratory Rate - - Oxygen Saturation 97% 11/20/2024 9:50 AM EDT Inhaled Oxygen Concentration - - Weight 67 kg (147 lb 12.8 oz) 11/20/2024 9:50 AM EDT Height 152.4 cm (5') 11/20/2024 9:50 AM EDT Body Mass Index 28.87 11/20/2024 9:50 AM EDT Plan of Treatment Upcoming Encounters Date Type Department Care Team (Late st Contact Info) Description 06/09/2025 11:00 AM EST Office Visit Endocrinology - [place] [address] [place] [address] Neli Dexter PA [address] [place] [address] Health Maintenance Due Date Last Done Comments Zoster Vaccines (1 of 2) 12/16/1993 DTaP,Tdap,and Td Vaccines (2 - Td or Tdap) 07/09/2008 07/09/1998 Pneumococcal Vaccine: 50+ Years (2 of 2 - PCV) 12/15/2014 12/15/2013, 06/12/2005 RSV Immunization Adult Patients (1 - 1-dose 75+ series) 12/16/2018 Falls Risk Assessment 08/07/2023 Medicare Annual Wellness Visit 08/07/2023 Osteoporosis Screening (Bone Density Screening) 08/07/2023 02/10/2013 Social Influencers of Health Screening 08/07/2023 Depression Screening 07/09/2024 COVID-19 Vaccine (1 - 2023-2 5 season) 2025 Influenza Vaccine (#1) 2025 7, 07/09/2008 Hypertension/CHF/CAD Annual BMP Blood Test 11/19/2025 11/19/2024, 06/06/2012 Cholesterol Screening (Lipid Panel) 01/20/2029 01/21/2024, 06/07/2012 [...] on patient's age to complete this topic Insurance * Guarantor: RajalistairalexandraAndrewsa Account Type Relation to Patient Date of Phone Billing Address Personal/Family Self 1945 [address] [place] [address] [facility] MEDICAID [facility] MEDICARE Member Subscriber Plan / Payer (Ef fective 2023-Present) Name:NILESH JACQUES Relation to Subscriber:Self Name:Nilesh Jacques Payer ID:[id number] Group ID:[id number] Type:Not on file Address: [address] [place] [address] Care Teams Kiln Stoker Relationship Specialty Start Date End Date Petra Hernandez [address] [place] [address] PCP - General 03/05/24
== END 2025-04-07 10:06 | disposition home or self-care (01) ==
LOC: HO.HKAS 09:45
PROVIDERS: PCP Nurse Practitioner; Visit Provider Internal Medicine Nephrology
DX: R09.89 Other specified symptoms and signs involving the circulatory and respiratory systems (principal)
CPT/HCPCS: 99214

== ENCOUNTER → 2025-04-07 09:44 | Outpatient (BNVA) | payer OTHER, SELFPAY | PROVIDERS: PCP Nurse Practitioner; Visit Provider Internal Medicine Nephrology | DX: I10 Essential (primary) hypertension (principal); R03.0 Elevated blood-pressure reading, without diagnosis of hypertension; G20.C Parkinsonism, unspecified; R09.89 Other specified symptoms and signs involving the circulatory and respiratory systems | CPT/HCPCS: 99212 ==

== ENCOUNTER 2025-06-29 13:30 | Outpatient (AMB) | payer OTHER, SELFPAY ==
--- NOTE | 2025-06-29 13:50 | MHC.OFFVIS ---
Vital Signs 06/29/25 13:51 Height 4 ft 11 in Weight 146 lb 4 oz BMI 29.5 BP 142/82 H Blood Pressure Location Rt brachial Position Sitting Pulse 87 Pulse Source Pulse Oximeter Pulse Oximetry (%) 96 Oxygen Delivery Method Room Air Intake Visit Reasons: 4 months follow up Intake Note: Parkinson's disease with dyskinesia Wastewater Treatment Operator Required: Yes Wastewater Treatment Operator Services: Wastewater Treatment Operator Present Wastewater Treatment Operator Name: Maite ID# [id number] Accompanied by: Friend Allergies Sulfa (Sulfonamide Antibiotics) Allergy (Mild, Verified 06/29/25 13:51) Swelling Medication List - Last Reconciled 06/29/25 by JOVANNA Camacho alendronate 70 mg PO QWEEK calcium citrate 200 mg PO DAILY 30 days carbidopa-levodopa 25-100 mg 2 tabs PO QID cholecalciferol (vitamin D3) (Vitamin D3) 125 mcg PO DAILY diclofenac sodium 1% 2 grams topical QID gabapentin 100 mg PO TID 30 days latanoprost 0.005% drps ophthalmic (eye) lisinopril 10 mg PO DAILY 90 days methimazole 5 mg PO DAILY mirabegron ER (Myrbetriq) 25 mg PO DAILY [id number] fum-folic ac 18 mg iron- 400 mcg (One-A-Day Women's Complete) tabs PO omeprazole 20 mg PO BID pantoprazole 20 mg PO QAM 30 days pramipexole 0.25 mg PO QID 90 days rasagiline 1 mg PO DAILY 90 days torsemide 5 mg PO DAILY HPI Comments Details: 79-yr-old female presents for f/u visit for Parkinson's, accompanied by her FORM BUILDER HELPER. Czech advertising account executive assist w/ Czech interpretation: [id number], Idirisov Pt denies any significant interval changes. Primary PD concerns- she is falling more frequently, even fell today. She is more prone to fall to the left. She is unsure if there is a specific trigger, but maybe turning too quickly. She states she has taught herself to fall, so when she fall she tucks herself in. She has not done PT for her gait in a long time. She is not interested in doing PT at this time, but is open to going to a PD class. Status post history of kyphoplasty with residual chronic back pain. Previous [facility] physiatry consult for hip/back pain- per last note, pt felt she was doing well- no tx's indicated. PCP: Petra De La O SERVICE NOW DEVELOPER at [facility] Landscape Architecture Professor: Neli Dexter at [place]. Pt's current PD medication regimen:? Carbidopa-levodopa 2 tabs qid.? Pramipexole 0.25 mg 1 q.i.d.? Rasagiline 1 mg daily. Living situation: Lives home alone in a senior apartment complex. ADL's:? Slow. Needs more help d/t her left hand. Has a PHARMACEUTICAL COMPOUNDING SUPERVISOR for upper body ADLs, and she does the lower body with some effort. Swallowing: May have difficulty- has to take small bites- attributes to dental issues- states she needs a new dentist Drooling:? Sometimes feels thirsty. Orthostatic lightheadedness:? May feel briefly unstable when she stands- lasts until she does something. Trying to drink a bit more, but does not follow the norm . Is now being followed closely by [facility] nephrology. 11/06/2024, 24 hour BP monitor brian mostly control BP, with the exception of some morning BP spikes. Constipation:? Denies constipation. Tremor:?Denies Stiffness:? In her hands. Paresthesias: Noticing more Right hand numbness- this comes and goes- depends on her hand position. Both hands hurt to put pressure on. Previously had [facility] orthopedic consult- had EMG/NCS showed right CTS- however pt declined surgical intervention- she is scared to do this. She did a course of OT- which initially helped, but she thinks the effects subsided. She does wear a wrist splint at night, which has been helpful. She would like to see an orthopedic closer to her home. Dyskinesia: Stable- not bothersome. Gait: as above Falls:?as above Hallucinations:? Sometimes it may seem like someone is behind her- an tea Memory:? May have some memory issues- no worrisome forgetful. Mood: Sad- attributes to the ongoing pain in her body and her overall condition that is starting to limit her abilities. Does not have a therapist- or good support person. She needs Czech speaking provider. Sleep:? Sleeping ok. [facility] Medical History History of osteoporosis Broken arm Vitamin D deficiency Urinary incontinence Rib fracture Osteoarthritis HTN (hypertension) Bilateral cataracts Low back pain potentially associated with radiculopathy Parkinson's disease Surgical History History of esophagogastroduodenoscopy (EGD) H/O shoulder surgery Social History Household Members Other:: lives alone Alcohol intake: never Patient Tobacco Use Status: Never used Tobacco Physical Exam Vital Signs: Last Vital Signs Pulse 87 06/29/25 13:51 BP 142/82 H 06/29/25 13:51 Pulse Ox 96 06/29/25 13:51 Oxygen Delivery Method Room Air 06/29/25 13:51 BMI result Body Mass Index 29.5 Const General: cooperative and no acute distress Resp Effort & Inspection: normal respiratory effort and able to speak in complete sentences Neuro Other: General: A&O, mild STM lapses. Expression: Mild decreased expression and blink Voice: ? Soft voice Tremor:? No visible tremor today. Dyskinesia: Generalized mild dyskinesia. Tone:? BUE rigidity- more so on left, no noticeable finger posturing today (typically L > R). FFM:? Mild bradykinesia Foot taps:? Mild bradykinesia Gait:? Stands slowly, slight stoop, no arm swing, shorter steps with low floor clearance. Stride better w/ walker. Psych: Pleasant affect. Assessment & Plan Assessment & Plan (1) Parkinson's disease with dyskinesia: Code(s): G20.B1 - Parkinson's disease with dyskinesia, without mention of fluctuations Category: Medical Qualifiers: Fluctuating manifestations: with fluctuating manifestations Qualified Code(s): G20.B2 - Parkinson's disease with dyskinesia, with fluctuations (2) Bilateral hand pain: Code(s): M79.641 - Pain in right hand; M79.642 - Pain in left hand Category: Medical (3) Right carpal tunnel syndrome: Code(s): G56.01 - Carpal tunnel syndrome, right upper limb Category: Medical (4) Right shoulder pain: Code(s): M25.511 - Pain in right shoulder Category: Medical Qualifiers: Chronicity: chronic Qualified Code(s): M25.511 - Pain in right shoulder; G89.29 - Other chronic pain (5) Numbness of right hand: Code(s): R20.0 - Anesthesia of skin Category: Medical Plan For Parkinson's: Discussed increasing or adjusting patient's Parkinson's medication to decrease slowness and stiffness, however she again would like to wait until follow-up. Continue carbidopa levodopa 2 tabs QID. Continue pramipexole 0.25mg QID Continue rasagiline 1 mg q.d. Continue to use assistive device, such as to walker Offered referral to PT, patient again declines. Information shared on local PD exercise program at the [facility], which is close to her house. Establish care with psychologist as ordered, she had requested a therapist who is fluent in Czech and sees patients in person. Order previously initiated. For hypertension: Follow-up with nephrology as scheduled For RUE paresthesia and right shoulder pain: 06/18/2024, EMG/NCS: moderate right carpal tunnel and mild right ulnar neuropathy. Patient previously declined surgical intervention of the right CTS, however she is open to being referred to a new orthopedic office closer to her home. Will request ortho consult at [facility] in [place]. In the meantime, continue to wear wrist splint at night. F/u in 6 months or sooner prn Orders: Referrals Orthopedics Referral G56.01 - Carpal tunnel syndrome, right upper limb, M25.511 - Pain in right shoulder, R20.0 - Anesthesia of skin Medications: Changed From pramipexole 0.25 mg orally QID; 30 days 120 tabs 6RF To pramipexole 0.25 mg PO QID 360 tabs 12RF 90 days From rasagiline 1 mg PO DAILY 30 days 30 tabs 6RF To rasagiline 1 mg PO DAILY 90 tabs 4RF 90 days Coding Level of Care Code Est Pt Level 4 (89467) Add On Problem Visit Only Diagnoses Parkinson's disease with dyskinesia and fluctuating manifestations G20.B2 Fluctuating manifestations: with fluctuating manifestations Bilateral hand pain M79.641; M79.642 Right carpal tunnel syndrome G56.01 Chronic right shoulder pain M25.511; G89.29 Chronicity: chronic Numbness of right hand R20.0
[2025-06-29 13:51] VITALS: BP 142/82; PULSE 87; O2SAT 96; BMI 29.5
--- OUTSIDE RECORDS SUMMARY | 2025-06-29 16:55 | XMS_ITS | Clinical Summary ---
Author Organization [facility] [address] [place] [address] Address [address] [place] [address] Phone Care Team Providers Care Custodian Manager Name Role Phone Petra Hernandez Primary Care Provider [phone] Allergies Active Allergy Reactions Criticality Noted Date [...] TABLET BY MOUTH EVERY DAY 30 tablet 5 5 Active Encounters Date Type Department Care Team Description 06/17/2025 Telephone Endocrinology [address] [phone] Neli Dexter PA 06/17/2025 Telephone Adult Medicine [address] [phone] Zoe Harris [place] 06/09/2025 11:45 AM EST Lab Draw Station [address] Subclinical hyperthyroidism; Multiple thyroid nodules 06/09/2025 11:00 AM EST Office Visit Endocrinology [address] [phone] Neli Dexter PA Subclinical hyperthyroidism (Primary Dx); [...] on file Sexual Orientation Not on file Last Filed Vital Signs Vital Sign Reading Time Taken Comments Blood Pressure 89/50 06/09/2025 11:07 AM EST Pulse 76 06/09/2025 11:07 AM EST Temperature 36 C (96.8 F) 11/20/2024 9:50 AM EDT Respiratory Rate 16 06/09/2025 11:07 AM EST Oxygen Saturation 97% 11/20/2024 9:50 AM EDT Inhaled Oxygen Concentration - - Weight 65.8 kg (145 lb) 06/09/2025 11:07 AM EST Height 152.4 cm (5') 06/09/2025 11:07 AM EST Body Mass Index 28.32 06/09/2025 11:07 AM EST Plan of Treatment Upcoming Encounters Date Type Department Care Team (Late st Contact Info) Description 10/13/2025 10:45 AM EDT Office Visit Endocrinology - [place] [address] [place] [address] Neli Dexter PA [address] [place] [address] Health Maintenance Due Date Last Done Comments [...] Depression Screening 07/09/2024 COVID-19 Vaccine (1 - 2024-2 6 season) 2025 Influenza Vaccine (#1) 2025 7, [...] Date/Time Associated Diagnosis Comments THYROID STIMULATING HORMONE Routine 06/09/2025 11:56 AM EST Subclinical hyperthyroidism Multiple thyroid nodules THYROXINE FREE Routine 06/09/2025 11:56 AM EST Subclinical hyperthyroidism Multiple thyroid nodules TRIIODOTHYRONINE FREE Routine 06/09/2025 11:56 AM EST Subclinical hyperthyroidism Multiple thyroid nodules HEPATIC FUNCTION PANEL Routine 11:56 AM EST Subclinical hyperthyroidism Multiple thyroid nodules from Last 3 Months Results * Triiodothyronine free (06/09/2025 11:56 AM EST) T3, Free 391 230 - 420 pcg/dL 06/09/2025 4:02 PM EST [facility] Blood Venous blood specimen / Unknown Venipuncture / Unknown 06/09/2025 11:56 AM EST 06/09/2025 11:56 AM EST us Neli DIAZ LAB BLOOD ORDERABLES Final Resul t Performing Organization Address [facility] de Phone Number [facility] [address] [place] [address], * Thyroid stimulating hormone (06/09/2025 11:56 AM EST) TSH 1.58 0.40 - 4.00 mcIU/mL 06/09/2025 4:03 PM EST [facility] Blood Venous blood specimen / Unknown Venipuncture / Unknown 06/09/2025 11:56 AM EST 06/09/2025 11:56 AM EST Neli DIAZ LAB BLOOD ORDERABLES Final Resul t Performing Organization Address [facility] de Phone Number [facility] [address] [place] [address], [place] [phone] * Thyroxine free (06/09/2025 11:56 AM EST) Free T4 1.40 0.70 - 1.80 ng/dL 06/09/2025 4:02 PM EST [facility] Blood Venous blood specimen / Unknown Venipuncture / Unknown 06/09/2025 11:56 AM EST 06/09/2025 11:56 AM EST Neli DIAZ LAB BLOOD ORDERABLES Final Resul t Performing Organization Address City/[facility] Co de Phone Number [facility] [address] [place] [address], [place] [phone] * (ABNORMAL) Hepatic function panel (06/09/2025 11:56 AM EST) Total Protein 7.3 6.0 - 8.0 g/dL 06/09/2025 4:28 PM EST [facility] Albumin 4.4 3.2 - 5.0 g/dL 06/09/2025 4:28 PM [facility] Total Bilirubin 0.5 0.0 - 1.4 mg/dL 06/09/2025 4:28 PM [facility] Bilirubin, Direct 0.1 0.0 - 0.3 mg/dL 06/09/2025 4:28 PM [facility] Bilirubin, Indirect 0.4 0.0 - 1.1 mg/dL 06/09/2025 4:28 PM [facility] ALT (SGPT) <7(L) 10 - 60 unit/L 06/09/2025 4:28 PM [facility] Comment:Results verified by repeat testing AST (SGOT) 20 10 - 42 unit/L 06/09/2025 4:28 PM [facility] Alkaline Phosphatase 89 42 - 121 unit/L 06/09/2025 4:28 PM [facility] Blood Venous blood specimen / Unknown Venipuncture / Unknown 06/09/2025 11:56 AM EST 06/09/2025 11:56 AM EST us Neli DIAZ LAB BLOOD ORDERABLES Final Resul t [facility] [address] [place] [address], from Last 3 Months Insurance * Guarantor: Nilesh Jacques Account Type Relation to Patient Date of Phone Billing Address Personal/Family Self 1945 [address] [place] [address] [facility] MEDICARE Member Subscriber Plan / Payer (Ef fective 2024-Present) Name:NILESH JACQUES Relation to Subscriber:Self Name:Nilesh Jacquse Payer ID:[id number] Group ID:[id number] Type:Not on file Address: [address] [place] [address] Care Teams Custodian Manager Relationship Specialty Start Date End Date Petra Hernandez [address] [place] [address] PCP - General 03/05/24
--- OUTSIDE RECORDS SUMMARY | 2025-06-29 16:55 | XMS_ITS | Encounter Summary ---
Author Organization [facility] Address [address] [place] [address] Care Team Providers Care Hide Buffer Name Role Phone Hernandez, Petra Primary Care Provider [phone] Reason for Visit * Reason Onset Date Comments Med Refill 06/17/2025 Encounter Details Date Type Department Care Team (Late st Contact Info) Description 06/17/2025 Telephone Endocrinology - [place] [address] [place], [place] [phone] Neli Dexter PA [address] [place] [address] Social History Tobacco Use Types Packs/Day Years [...] on file documented as of this encounter Progress Notes * Sindy Barnes [place] - 06/17/2025 4:58 PM EST Rx sent to [facility] on 05/04/25 with 5 refills. Pt needs to call [facility]. I tried calling pt to let her kn ow but line was busy. * Krystina Marquez - 06/17/2025 4:08 PM EST Endocrine Call Primary endocrine provider: Neli Dexter PA-C Is the endocrine provider in the office toady?: yes Who is calling? The patient. If not the patient or parent/guardian please check for authorization to share/verbal release. Why is the person calling? Medication refill; Medication on list. Refills on Current Medication List MED NAME: methlmazole 5mg tablet PREFERRED PHARMACY: [facility] [address] Patient would like script to be: MAILED TO HOME ADDRESS [place] Does patient have an upcoming appointment? Yes 10/13/25 (THE MEDICATION REQUESTED IS ON THE MED LIST ABOVE) All of the medications requested were on the CURRENT MEDS list Did you check the Pharmacy information above?: yes Patient wants: 90-day supply Is this a mail order prescription request?: yes If the refill is from a FAXED refill request what is the RX # listed on the fax? not applicable Patients current insurance carrier is: Payor: [facility] MEDICARE / Plan: [facility] / Product Type: *No Product type* / Insurance ID #: @[email or web address]@. Please forward to endocrine [place] (p [id number]). . documented in this encounter Plan of Treatment Upcoming Encounters Date Type Department Care Team (Late st Contact Info) Description 10/13/2025 10:45 AM EDT Office Visit Endocrinology - [address] [phone] Neli Dexter PA [address] [place] [address] documented as of this encounter Visit Diagnoses Not on filedocumented in this encounter Care Teams Hide Buffer Relationship Specialty Start Date End Date Petra Hernandez [address] [place] [address] PCP - General 03/05/24 documented as of this encounter
--- OUTSIDE RECORDS SUMMARY | 2025-06-29 16:55 | XMS_ITS | Encounter Summary ---
Author Organization [employer] Address [address] [place] [address] Care Team Providers Care Solar Designer Name Role Phone Petra Hernandez Primary Care Provider [phone] Encounter Details Date Type Department Care Team (Late Contact Info) Description 06/17/2025 Telephone Adult Medicine [facility] [address] [place], [place] [phone] Zoe Harris [place] Social History Tobacco Use Types Packs/Day Years [...] on file documented as of this encounter Plan of Treatment Upcoming Encounters Date Type Department Care Team (Late Contact Info) Description 10/13/2025 10:45 AM EDT Office Visit Endocrinology - [place] [address] [place], [place] [phone] Neli Dexter PA [address] [place], [place] documented as of this encounter Visit Diagnoses Not on filedocumented in this encounter Care Teams Solar Designer Relationship Specialty Start Date End Date Petra Hernandez [address] [place] [address] PCP - General 03/05/24 documented as of this encounter
--- OUTSIDE RECORDS SUMMARY | 2025-06-29 16:55 | XMS_ITS | Data Portability ---
Author Organization [place] [facility], [facility] Address [address] [place] [address] Assessment Encounter Date Assessment Date Assessment LastModified by Organization Details LastModified Time 02/15/2024 02/15/2024 Pt tolerated rx well. Fatigued quickly with strengthening exercises, able to progress strengthening as charted. Increase AROM flexion against gravity, endurance improving. Cont c POC, progress as tolerated. [email or web address] Not available 02/15/2024 11:27:11 02/18/2024 02/18/2024 Pt tolerated rx well. Fatigued quickly with strengthening exercises, but able to complete all w/o pain. Mod challenged c rows, limited L scap retraction. Required vc's and tc's for form. Cont c POC, progress as tolerated. [email or web address] Not available 02/18/2024 09:22:19 02/20/2024 02/20/2024 Pt tolerated rx well. Able to complete full program without c/o onset of pain. Intiiated more functional training today with repeated head taps and lifting small weight to 1st shelf. Fatigued quickly, compensating to reach higher with SA muscules. Cont c POC, progress as tolerated. [email or web address] Not available 02/20/2024 11:56:14 02/26/2024 02/26/2024 Pt tolerated rx well. Able to complete full program without c/o onset of pain. Improved ease with functional strengthening, able to increase repetitions with appropriate fatigue noted. Continues with difficulty performing overhead motions. Anticipated DC next visit. Update HEP. [email or web address] Not available 02/26/2024 10:28:46 03/07/2024 03/07/2024 Pt tolerated rx well. Able to complete full program without c/o onset of pain. improved reaching height overhead. Continue to fatigue with overhead reaching. ROM WFL. Pt reporting minimal functional complaints besides limitations overhead. Encouraged to continue with ther ex and f/u with any concerns. DC to ind HEP. 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 Procedures Surgical History Date Name Laterality Status Provider Name and Address Organization Details Recorded Time 4 79039 Therapeutic Exercise (1:1) completed Elizabet Franklin DPT [address], [place], [address], [facility] 03/07/2024 11:45:40 4 06330: Hot or Cold Pack completed Elizabet Franklin DPT [address], [place], [address], [facility] 03/07/2024 11:45:23 4 27805 Therapeutic Exercise (1:1) cancelled Elizabet Franklin DPT [address], [place], [address], [facility] 02/29/2024 09:20:28 4 05213: Hot or Cold Pack cancelled Elizabet Franklin DPT [address], [place], [address], [facility] 02/29/2024 09:20:28 4 66811 Therapeutic Exercise (1:1) completed Elizabet Franklin DPT [address], [place], [address], [facility] 02/26/2024 10:28:54 4 88454: Hot or Cold Pack completed Elizabet Franklin DPT [address], [place], [address], [facility] 02/26/2024 09:34:31 4 58985 Therapeutic Exercise (1:1) completed Elizabet Franklin DPT [address], [place], [address], [facility] 02/20/2024 11:09:52 4 61808: Hot or Cold Pack completed Elizabet Franklin DPT [address], [place], [address], [facility] 02/20/2024 11:09:52 4 90208 Therapeutic Exercise (1:1) completed Saima Martin PTA [address], [place], [address], [facility] 02/18/2024 09:22:33 4 05132: Hot or Cold Pack completed Saima Martin PTA [address], [place], [address], [facility] 02/15/2024 13:19:06 4 56262 Therapeutic Exercise (1:1) completed Elizabet Franklin DPT [address], [place], [address], [facility] 02/15/2024 09:30:57 4 79158: Hot or Cold Pack completed Elizabet Frnaklin, DPT [address], [place], [address], [facility] 02/15/2024 09:30:57 4 11502 Therapeutic Exercise (1:1) completed Elizabet Franklin DPT [address], [place], [address], [facility] 02/12/2024 12:00:46 4 09980: Hot or Cold Pack completed Elizabet Franklin DPT [address], [place], [address], [facility] 02/12/2024 12:00:54 4 51636 Therapeutic Exercise (1:1) completed Saima Martin FOAM RUBBER FABRICATOR [address], [place], [address], [facility] 02/05/2024 11:56:33 4 32726: Hot or Cold Pack completed Saima Martin FOAM RUBBER FABRICATOR [address], [place], [address], [facility] 02/04/2024 08:39:02 4 99765: Manual therapy completed Saima Martin FOAM RUBBER FABRICATOR [address], [place], [address], [facility] 02/05/2024 11:28:19 4 95954 Therapeutic Exercise (1:1) completed Saima Martin, FOAM RUBBER FABRICATOR [address], [place], [address], [facility] 02/01/2024 11:52:55 4 11655: Hot or Cold Pack completed Saima Martin, FOAM RUBBER FABRICATOR [address], [place], [address], [facility] 01/31/2024 10:34:10 4 38268: Manual therapy completed Saima Martin, FOAM RUBBER FABRICATOR [address], [place], [address], [facility] 02/01/2024 11:52:59 4 67887 Therapeutic Exercise (1:1) completed Saima Martin PTA [address], [place], [address], [facility] 01/28/2024 13:06:34 4 75314: Hot or Cold Pack completed Saima Martin PTA [address], [place], [address], [facility] 01/28/2024 13:06:34 4 72858: Manual therapy completed Saima Martin PTA [address], [place], [address], [facility] 01/29/2024 11:40:43 4 16298 Therapeutic Exercise (1:1) completed Elizabet Franklin DPT [address], [place], [address], [facility] 01/25/2024 08:51:06 4 70455: Hot or Cold Pack completed Elizabet Franklin DPT [address], [place], [address], [facility] 01/25/2024 08:51:06 4 32265: Manual therapy completed Elizabet Franklin DPT [address], [place], [address], [facility] 01/25/2024 11:17:58 4 75011 Therapeutic Exercise (1:1) completed Saima Martin PTA [address], [place], [address], [facility] 01/21/2024 09:03:55 4 67285: Hot or Cold Pack completed Saima Martin PTA [address], [place], [address], [facility] 01/22/2024 13:27:25 4 84767: Manual therapy completed Saima Martin PTA [address], [place], [address], [facility] 01/21/2024 09:03:55 4 80681 Therapeutic Exercise (1:1) completed Elizabet Franklin DPT [address], [place], [address], [facility] 01/18/2024 11:41:16 4 18000: Hot or Cold Pack completed Elizabet Franklin DPT [address], [place], [address], [facility] 01/18/2024 11:37:04 4 09323: Manual therapy completed Elizabet Franklin DPT [address], [place], [address], [facility] 01/18/2024 11:40:56 4 89409 Therapeutic Exercise (1:1) completed Saima Martin PTA [address], [place], [address], [facility] 01/14/2024 13:29:51 4 70149: Hot or Cold Pack completed Saima Martin PTA [address], [place], [address], [facility] 01/14/2024 13:29:51 4 92391: Manual therapy completed Saima Martin PTA [address], [place], [address], [facility] 01/14/2024 13:29:51 4 54816 Therapeutic Exercise (1:1) completed Elizabet Franklin DPT [address], [place], [address], [facility] 01/09/2024 11:36:10 4 71460: Hot or Cold Pack completed THEO EstradaT [address], [place], [address], [facility] 01/09/2024 11:36:10 4 53296: Manual therapy completed Elizabet Franklin DPT [address], [place], [address], [facility] 01/09/2024 11:36:10 4 32166 Therapeutic Exercise (1:1) completed Saima Martin PTA [address], [place], [address], [facility] 01/04/2024 09:15:47 4 33281: Hot or Cold Pack completed Saima Martin FOAM RUBBER FABRICATOR [address], [place], [address], [facility] 01/03/2024 15:22:51 4 52970: Manual therapy completed Saima Martin PTA [address], [place], [address], [facility] 01/04/2024 09:15:18 4 63706 Therapeutic Exercise (1:1) completed Saima Martin PTA [address], [place], [address], [facility] 01/02/2024 09:05:38 4 64374: Hot or Cold Pack completed Saima Martin FOAM RUBBER FABRICATOR [address], [place], [address], [facility] 01/02/2024 09:05:45 4 98350: Manual therapy completed Saima Martin FOAM RUBBER FABRICATOR [address], [place], [address], [facility] 01/02/2024 09:05:27 4 42638 Therapeutic Exercise (1:1) completed Elizabet Franklin DPT [address], [place], [address], [facility] 12/28/2023 08:59:50 4 49573: Hot or Cold Pack completed Elizabet Franklin DPT [address], [place], [address], [facility] 12/28/2023 08:54:23 4 71750: Manual therapy completed Elizabet Franklin DPT [address], [place], [address], [facility] 12/28/2023 08:59:58 4 89660 Therapeutic Exercise (1:1) completed Elizabet Franklin DPT [address], [place], [address], [facility] 12/24/2023 20:19:36 4 21852: Low complexity PT Eval completed Elizabet Franklin DPT [address], [place], [address], [facility] 12/24/2023 20:20:07 Imaging Results None recorded. Procedure Notes None recorded. Medical Equipment None Reported. Allergies Allergen ID Allergen Name Allergen Category Reaction Reaction Severity Criticality Documentation Date Start Date Code Code System Note Provider Name and Address Organization Details Recorded Time 13627 Substance with sulfonami de structure and antibacte rial mechanism of action (substanc e) medicatio n Not available Not available Not available 09/10/20232013 71124 8003 SNOMED Not Available [facility] 12:19:33 Medications Name Sig Start Date [...] Diagnosis SNOMED-CT Code Diagnosis ICD10 Code Diagnosis IMO Codes Diagnosis Note [id number] CINTHYA Meyer [address], [place] [address] 10/02/2023 14:28:20 10/02/2023 15:31:10 Pain in left arm [id number] M79.040 [id number] Eve Alegre, CINTHYA Nabeelkelvin 3rd floor [address] [place] [address] 12/05/2023 09:24:45 12/26/2023 13:45:13 Closed fracture of proximal left humerus [id number] [id number] S42.A [id number] THEO EstradaT [facility] [address] [place] [address] 12/25/2023 11:28:24 12/25/2023 12:37:12 Closed fracture of proximal left humerus 8123550720 [id number] S42.D [id number] Elizabet Franklin DPT [facility] [address] [place] [address] 12/28/2023 08:32:26 12/28/2023 09:23:50 Closed fracture of proximal left humerus 1955464242 [id number] S42.D [id number] Saima Martin PTA [facility] [address] [place] [address] 01/02/2024 08:28:53 01/02/2024 09:33:10 Closed fracture of proximal left humerus 5246079741 8586884 S42.D [id number] HAWK [facility] [address] [place] [address] 01/04/2024 08:27:52 01/04/2024 09:21:04 Closed fracture of proximal left humerus 4854191067 7697807 S42.D [id number] Elizabet Franklin DPT [facility] [address] [place] [address] 01/09/2024 11:26:15 01/09/2024 12:37:59 Closed fracture of proximal left humerus 7850034847 5834990 S42.D [id number] HAWK [facility] [address] [place] [address] 01/15/2024 11:22:33 01/15/2024 12:19:32 Closed fracture of proximal left humerus 6739984531 4221179 S42.D [id number] LADI Estradaon PT [address] [facility] [place] [address] 01/18/2024 10:36:13 01/18/2024 11:45:34 Closed fracture of proximal left humerus 4549733433 8457340 S42.202D [id number] Saima Martin, FOAM RUBBER FABRICATOR [facility] [address] [place] [address] 01/22/2024 11:31:29 01/22/2024 13:44:41 Closed fracture of proximal left humerus 0295886081 9839109 S42.202D [id number] THEO EstradaT [facility] [address] [facility] [place] [address] 01/25/2024 10:55:04 01/25/2024 13:39:52 Closed fracture of proximal left humerus 7886233859 5145694 S42.D [id number] Saima Martin, FOAM RUBBER FABRICATOR [facility] [address] [facility] [place] [address] 01/29/2024 10:50:21 01/29/2024 12:05:08 Closed fracture of proximal left humerus 8144605899 [id number] S42.D [id number] Saima Martin, FOAM RUBBER FABRICATOR [facility] [address] [facility] [place] [address] 02/01/2024 11:01:39 02/01/2024 12:06:08 Closed fracture of proximal left humerus 0152821317 1963886 S42.202D [id number] Saima Martin, FOAM RUBBER FABRICATOR [facility] [address] [facility] [place] [address] 02/05/2024 11:00:41 02/05/2024 14:52:05 Closed fracture of proximal left humerus 7200106013 7723716 S42.D [id number] THEO EstradaT [facility] [address] [place] [address] 02/12/2024 11:24:25 02/12/2024 12:09:29 Closed fracture of proximal left humerus 4837474056 2715302 S42.202D [id number] Elizabet Franklin DPT [facility] [address] [facility] [place] [address] 02/15/2024 09:19:36 02/15/2024 11:27:49 Closed fracture of proximal left humerus 1266813789 [id number] S42.D [id number] Saima Martin, FOAM RUBBER FABRICATOR [facility] [address] [place] [address] 02/18/2024 08:17:57 02/18/2024 09:23:03 Closed fracture of proximal left humerus 5025158839 [id number] S42.D [id number] LADI Estrada PT [address] [place] [address] 02/20/2024 10:58:22 02/20/2024 11:56:52 Closed fracture of proximal left humerus 5741716072 [id number] S42.D [id number] LADI Estrada PT [address] [place] [address] 02/26/2024 09:21:13 02/26/2024 10:29:20 Closed fracture of proximal left humerus 2238610046 [id number] S42.D [id number] LADI Estrada PT [address] [place] [address] 03/07/2024 10:54:13 03/07/2024 11:48:03 Closed fracture of proximal left humerus 8303944946 [id number] S42. Health Concerns Section Related Observation LastModified by Organization Detai ls LastModified Time None Recorded Concern Status LastModified by Organization Details LastModified Time None Recorded Advance Directives Directive None Recorded Payers Insurance Date Sequence Insurance Name Policy Number Policy Hu Covered Member ID Hu Member ID Guarantor Name 03/11/2024 1 [facility] - DOS ON OR AFTER 2022 - RESIDENTIAL OPTIONS AND ONE CARE (MEDICARE REPLACEMENT/AD VANTAGE - PPO) Fatou Hardin [id number] Fatou Hardin Notes Date Note Type Note Provider Name and Address Organization Details Recorded Time 02/15/2024 text/html Pt denies pain coming into therapy. Elizabet Franklin DPT [address] [facility] [address], [place], [address], [facility] [place] [facility] 02/15/2024 11:27:44 02/18/2024 text/html Pt denies pain coming into therapy. Still having trouble reaching into overhead cupboard.8min early Saima Martin, FOAM RUBBER FABRICATOR [address], [place], [address], [facility] 02/18/2024 09:22:58 02/20/2024 text/html Pt denies pain coming into therapy. Reporting some difficulty washing hair or reaching into cabinet with anything more than a light dish. Elizabet Franklin DPT [address], [place], [address], [facility] 02/20/2024 11:56:48 02/26/2024 text/html Pt denies pain coming into therapy. Elizabet Franklin DPT [address], [place], [address], [facility] 02/26/2024 10:29:13 03/07/2024 text/html Pt denies pain coming into therapy. Elizabet Franklin DPT [address], [place], [address], [facility] 03/07/2024 11:47:58 OBGyn Episode No OBEpisode recorded.
--- OUTSIDE RECORDS SUMMARY | 2025-06-29 16:55 | XMS_ITS | Patient Health Record ---
Author Organization [facility] guillermo [place] Address [address] [place] [address] Care Team Providers Care [employer] Name Role Phone Petra De La O Primary Care Provider Unavailab Mark Smith Unavailable [phone] Allergies Allergen (clinical drug ingredient) Drug/Non Drug Allergy documented on EMR Reaction Allergy Type Onset Date Status Substance with sulfonamide structure and antibacterial mechanism of action (substance) Sulfa Antibiotics Unknown Drug Allergy Active Reason For Referral No Information Medications Medication SIG (Take, Route, Frequency, Duration) Notes Start Date End Date Status Pramipexole Dihydrochloride Active Rasagiline Mesylate Active Vitamin D3 Active Alendronate Sodium 70 MG 1 tablet 30 min utes before the first food, beverage or medicine of the day with plain water Orally; Duration: 30 day(s) Active Ammonium Lactate 12 % 1 application to affected area Externally to feet Twice a day; Duration: 30 days Active Torsemide Active Voltaren Active Lisinopril Active Gabapentin Not-Takin g Mapap Extra Strength Active Calcium Citrate 200 MG as directed Orally Active Neosporin 500-51675 UNIT/GM 1 application as needed Externally Once a day; Duration: 7 days 11/15/2023 Active Carbidopa-Levodopa A ctive Orthopedic Extra Depth Shoes With Custom Heat Molded Multidensity Innersoles 1 Pair shoes with 3 Pair custom heat molded innersoles Wear Daily; Duration: 365 days 07/10/2024 Active Omeprazole Active Immunizations Vaccine Route Administration Date Status Comme nts Influenza Unknown 04/08/2025 Refused COVID-19 Cr & Cr/Mala Unknown 09/26/2021 R [...] Problem Acquired hammer toe of right foot (1714549189577220) Other hammer toe(s) (acquired), right foot (M20.41) Active confirmed Problem Acquired hammer toe of left foot (3844956361156175) Other hammer toe(s) (acquired), left foot (M20.42) Active confirmed Problem Gout (58849298) Gout of left teresa t (M10.9) Active confirmed Problem 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 (375454392) 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 Problem Intermittent claudication (85341722) Intermittent claudication (I73.9) Active confirmed Problem Bilateral atherosclerosis of arteries of lower limbs (disorder) (49204991954720258 ) Atherosclerosis of [place] artery of both lower extremities, with unspecified presence of clinical manifestation (I70.203) Active confirmed Vital Signs Blood pressure diastolic 60 mm Hg 07/10/2024 Height 146 in 04/08/2025 Blood pressure systolic 150 mm Hg 07/10/2024 Weight 146 lbs 04/08/2025 BMI 4.82 kg/m2 04/08/2025 Procedures Procedure Date Ordered Date Performed Result Body Sit e 68780-CIIEVTY NAIL, 6 OR MORE 07/10/2024 N/A 19889-SXSZ SKIN LESIONS, OVER 4 07/10/2024 N/A 16606-BRHTDTQ NAIL, 6 OR MORE 10/13/2024 N/A 45528-ZSZC SKIN LESIONS, OVER 4 10/13/2024 N/A 80764-CUSLSOA NAIL, 6 OR MORE 01/14/2025 N/A 52138-TMYI SKIN LESIONS, OVER 4 01/14/2025 N/A 47478-IZSLBSQ NAIL, 6 OR MORE 04/08/2025 N/A 72312-ISXX SKIN LESIONS, OVER 4 04/08/2025 N/A Encounters Encounter Location Date Provider Diagnosis [address] [address] 07/10/2024 Mark Azar Atherosclerosis of [place] artery of both lower extremities, with unspecified presence of clinical manifestation I70.203 ; Onychomycosis B35.1 ; Pain of toe of right foot M79.674 ; Pain of toe of left foot M79.675 ; Other hammer toe(s) (acquired), right foot M20.41 and Other hammer toe(s) (acquired), left foot M20.[address] [address] 10/13/2024 Mark Nissa Atherosclerosis of [place] artery of both lower extremities, with unspecified presence of clinical manifestation I70.203 ; Onychomycosis B35.1 ; Pain of toe of right foot M79.674 and Pain of toe of left foot M79.[address] [address] 01/14/2025 Mark Azar Atherosclerosis of [place] artery of both lower extremities, with unspecified presence of clinical manifestation I70.203 ; Onychomycosis B35.1 ; Pain of toe of right foot M79.674 and Pain of toe of left foot M79.[address] [address] 04/08/2025 Mark Azar Atherosclerosis of [place] artery of both lower extremities, with unspecified presence of clinical manifestation I70.203 ; Onychomycosis B35.1 ; Pain of toe of right foot M79.674 and Pain of toe of left foot M79.675 Assessments Encounter Date Diagnosis (ICD Code) Assessment Notes Treatment Notes Treatment Clinical Notes Section Notes 07/10/2024 Onychomycosis (ICD-10 - B35.1) 07/10/2024 Atherosclerosis of [place] artery of both lower extremities, with unspecified presence of clinical manifestation (ICD-10 - I70.203) 10/13/2024 Onychomycosis (ICD-10 - B35.1) 10/13/2024 Atherosclerosis of [place] artery of both lower extremities, with unspecified presence of clinical manifestation (ICD-10 - I70.203) 01/14/2025 Onychomycosis (ICD-10 - B35.1) 01/14/2025 Atherosclerosis of [place] artery of both lower extremities, with unspecified presence of clinical manifestation (ICD-10 - I70.203) 04/08/2025 Onychomycosis (ICD-10 - B35.1) 04/08/2025 Atherosclerosis of [place] artery of both lower extremities, with unspecified presence of clinical manifestation (ICD-10 - I70.203) 01/14/2025 Pain of toe of right foot (ICD-10 - M79.674) 04/08/2025 Pain of toe of right foot (ICD-10 - M79.674) 07/10/2024 Pain of toe of right foot (ICD-10 - M79.674) 10/13/2024 Pain of toe of right foot (ICD-10 - M79.674) 07/10/2024 Pain of toe of left foot (ICD-10 - M79.675) 10/13/2024 Pain of toe of left foot (ICD-10 - M79.675) 01/14/2025 Pain of toe of left foot (ICD-10 - M79.675) 04/08/2025 Pain of toe of left foot (ICD-10 - M79.675) 07/10/2024 Other hammer toe(s) (acquired), right foot (ICD-10 - M20.41) 07/10/2024 Other hammer toe(s) (acquired), left foot (ICD-10 - M20.42) 07/10/2024 Other 10/13/2024 Other 01/14/2025 Other 04/08/2025 Other Plan Of Treatment Pending Test Test Name Order Date 33176-OOULLOX NAIL, 6 OR MORE 10/25/2020 62094-HDEAIEE NAIL, 6 OR MORE 01/12/2021 88191-GIVWKXO NAIL, 6 OR MORE 04/11/2021 91958-FREBLQG NAIL, 6 OR MORE 07/18/2021 89614-KTAQQBN NAIL, 6 OR MORE 09/26/2021 52567-MKLGDND NAIL, 6 OR MORE 11/28/2021 21185-UVGHHGE NAIL, 6 OR MORE 02/06/2022 62099-KHUKPLW NAIL, 6 OR MORE 04/27/2022 96154-LGISVJW NAIL, 6 OR MORE 07/20/2022 88142-MQSJVHC NAIL, 6 OR MORE 09/28/2022 51888-RCQZFVR NAIL, 6 OR MORE 12/28/2022 89095-QLAKLAB NAIL, 6 OR MORE 03/22/2023 18214-OFUWQNS NAIL, 6 OR MORE 06/21/2023 52005-GIQRZIM NAIL, 6 OR MORE 11/15/2023 96666-OTTHQQW NAIL, 6 OR MORE 01/28/2024 93091-YNNNHDT NAIL, 6 OR MORE 04/07/2024 50881-VEKATCP NAIL, 6 OR MORE 07/10/2024 87904-ZRQYPRX NAIL, 6 OR MORE 10/13/2024 06408-ONYJSDW NAIL, 6 OR MORE 01/14/2025 95263-ARRFGLX NAIL, 6 OR MORE 04/08/2025 12603- Debride <25 sq cm 01/28/2024 11005-KXRIDUU SKIN/TISSUE 11/15/2023 95074-JTGD SKIN LESIONS, OVER 4 04/07/20 24 93840-IRWB SKIN LESIONS, OVER 4 01/28/20 24 23652-OMIV SKIN LESIONS, OVER 4 11/15/19 24 66714-NTIG SKIN LESIONS, OVER 4 04/08/20 25 84513-CAJF SKIN LESIONS, OVER 4 01/15/20 25 43911-QJRS SKIN LESIONS, OVER 4 10/14/19 25 02161-NRCH SKIN LESIONS, OVER 4 07/10/19 25 51135-LOQD SKIN LESIONS, OVER 4 06/21/20 23 80301-YELN SKIN LESIONS, OVER 4 03/22/20 23 43642-AUDY SKIN LESIONS, OVER 4 12/29/19 23 32733-KAHZ SKIN LESIONS, OVER 4 09/29/19 23 42501-ORRE SKIN LESIONS, OVER 4 07/20/19 Next Appt Details Provider Name:Mark Azar , 07/30/2025 10:45:00 AM, [address] [address], [place], [address], Insurance Providers Payer Name Payer Address Payer Phone Subscriber Number Group Number Insured Name Patient Relationship to Insured Coverage Start Date Coverage End Date [facility] [employer] Claims [address] [place] [id number] Fatuo Dennison Self - patient is the insured Medical (General) History Medical History History ICD Code Arthritis Back pain Cataracts chest pain Hypertension, benign Osteoporosis Parkinsons disease Vitamin D deficiency Surgical History Surgery Date(Month/Year) eye surgery 2024 Hospitalization History Reason Date(Month/Year) [facility] - Fall, then rehab facility 07/31/23 [facility]- chest pain, high blood pressure 02/07
== END 2025-06-29 15:17 | disposition home or self-care (01) ==
LOC: HO.HSMS 13:30
PROVIDERS: PCP Nurse Practitioner; Visit Provider Nurse Practitioner Family
DX: G20.B2 Parkinson's disease with dyskinesia, with fluctuations (principal); M79.641 Pain in right hand; M79.642 Pain in left hand; G56.01 Carpal tunnel syndrome, right upper limb; M25.511 Pain in right shoulder; G89.29 Other chronic pain; R20.0 Anesthesia of skin
CPT/HCPCS: 99214; G2211

== ENCOUNTER → 2025-06-29 13:30 | Outpatient (BNVA) | payer OTHER, SELFPAY | PROVIDERS: PCP Nurse Practitioner; Visit Provider Nurse Practitioner Family | DX: G20.B2 Parkinson's disease with dyskinesia, with fluctuations (principal); M79.641 Pain in right hand; M79.642 Pain in left hand; G56.01 Carpal tunnel syndrome, right upper limb; M25.511 Pain in right shoulder; G89.29 Other chronic pain; R20.0 Anesthesia of skin; Z79.899 Other long term (current) drug therapy | CPT/HCPCS: 99212 ==